=== PATIENT | female | born 1965 | race Two or more races ===

== ENCOUNTER → 2021-08-31 14:06 | Outpatient (BNVA) | payer OTHER, SELFPAY | PROVIDERS: PCP Nurse Practitioner Family; Visit Provider Nurse Practitioner Family | DX: G47.30 Sleep apnea, unspecified (principal); G43.109 Migraine with aura, not intractable, without status migrainosus; M54.2 Cervicalgia | CPT/HCPCS: 99212 ==

== ENCOUNTER → 2021-10-06 10:35 | Outpatient (BNVA) | payer OTHER, SELFPAY | PROVIDERS: PCP Nurse Practitioner Family; Visit Provider Physician Assistant Surgical | DX: Z13.89 Encounter for screening for other disorder (principal) ==

== ENCOUNTER → 2021-10-26 10:46 | Outpatient (BNVA) | payer OTHER, SELFPAY | PROVIDERS: PCP Nurse Practitioner Family; Visit Provider Physician Assistant Surgical | DX: E66.01 Morbid (severe) obesity due to excess calories (principal); Z68.41 Body mass index [BMI] 40.0-44.9, adult | CPT/HCPCS: 99202 ==

== ENCOUNTER → 2021-11-30 13:05 | Outpatient (BNVA) | payer OTHER, SELFPAY | PROVIDERS: PCP Nurse Practitioner Family; Visit Provider Nurse Practitioner Family | DX: G47.33 Obstructive sleep apnea (adult) (pediatric) (principal); E66.01 Morbid (severe) obesity due to excess calories; Z68.41 Body mass index [BMI] 40.0-44.9, adult; M54.2 Cervicalgia; G43.109 Migraine with aura, not intractable, without status migrainosus; Z79.899 Other long term (current) drug therapy; Z99.89 Dependence on other enabling machines and devices | CPT/HCPCS: 99212 ==

== ENCOUNTER → 2022-04-20 10:51 | Outpatient (BNVA) | payer OTHER, SELFPAY | PROVIDERS: PCP Nurse Practitioner Family; Visit Provider Nurse Practitioner Family | DX: G43.109 Migraine with aura, not intractable, without status migrainosus (principal); G47.33 Obstructive sleep apnea (adult) (pediatric); E66.01 Morbid (severe) obesity due to excess calories; M54.2 Cervicalgia; Z99.89 Dependence on other enabling machines and devices | CPT/HCPCS: 99212 ==

== ENCOUNTER → 2022-06-18 12:57 | Outpatient (BNVA) | payer OTHER, SELFPAY | PROVIDERS: PCP Nurse Practitioner Family; Referring Provider Physician Assistant Surgical; Visit Provider Internal Medicine | DX: R00.2 Palpitations (principal); R07.2 Precordial pain; I25.10 Atherosclerotic heart disease of native coronary artery without angina pectoris | CPT/HCPCS: 93005; 99202 ==

== ENCOUNTER → 2022-07-06 09:53 | Outpatient (REF) | payer OTHER, SELFPAY ==
--- NOTE | 2022-07-06 09:56 | CA_ITS ---
Transthoracic Echocardiogram Patient (Last, First, Middle): Quita Newman, Gender: Female Date of : 1965 Age: 56 Procedure Date: 07/06/2022 Procedure Type: Transthoracic Echocardiogram Location: OP Height: 167.64 cm Weight: 122.47 kg BSA: 2.27 m2 Heart Rate: 77 bpm BP: 117 / 54 mmHg Car Coupler: KATYA Referring MD: Channing Rahman MD Billing Spec: Billy Martinez MD Symptoms: I25.10 - Atherosclerotic heart disease of [place] coronary artery without... Study Quality: Adequate ECG Rhythm: Sinus Conclusions: - 1. Normal LV systolic function with normal diastolic filling pattern with regional wall motion abnormality suggestive underlying coronary disease 2. Normal cardiac valvular Doppler 3. No gross pericardial effusion Findings Left Ventricle Normal left ventricular size, thickness, and systolic function. The visually estimated ejection fraction is between 60-65%. Spectral Doppler is indicative of a normal filling pattern. Peak GLS is -15.6%, which is reduced. Wall Motion Rest Echo Findings The basal inferior segment is akinetic. All other scored wall segments showed normal motion. Right Ventricle Normal right ventricular cavity size and systolic function. Atria Both atria are normal in size. Aortic Valve The aortic valve was not well visualized. There is no aortic valve stenosis. There is no aortic valve regurgitation. Mitral Valve Likely normal mitral valve structure and function. There is trace mitral valve regurgitation. There is no mitral valve stenosis. Pulmonic Valve The pulmonic valve was not well visualized. Tricuspid Valve Likely normal tricuspid valve structure and function. Tricuspid regurgitation envelope is inadequate for calculation of right ventricular systolic pressure. Normal right atrial pressure. Great Vessels All visible segments of the aorta are normal in size. The pulmonary artery was not well visualized. Venous The inferior vena cava is normal in size and collapses greater than 50% with inspiration. Pericardium/Pleural There is no evidence of pericardial effusion. Prior Study Comparison No prior study available for comparison. Measurements 2D Linear Measurements IVSd: 1.30 0.6-0.9/0.6-1.0 cm LVIDd: 4.67 3.9-5.3/4.2-5.9 cm LVIDd Index: 2.06 2.4-3.2/2.2-3.1 cm/m2 LVIDs: 2.99 2.0-3.6 cm LVPWd: 0.90 0.7-1.1 cm LA Diam: 3.70 2.7-3.8/3.0-4.0 cm LAIDs Index: 1.63 1.5-2.3 cm/m2 LV Mass: 230.56 67-162/88-224 g LV Mass Index: 101.57 43-95/49-115 g/m2 LVOT Diam: 2.10 3.0+(-)1.3 cm 2D Systolic Function EF 4C: 57.80 >55% EF 2C: 63.70 >55% EF BiP: 61.00 >55% Mitral Valve MV Pk E: 0.86 MV PK A: 0.84 MV Decel Time: 170.00 E/A: 1.00 E'Lateral: 12.50 E'Medial: 10.90 E/E' Med: 7.90 E/E' Lat: 6.90 PHT: 50.00 MVA PHT: 4.40 Decel [place]: 5.07 Aortic Valve AoV Pk [place]: 1.27 AoV Pk Grad: 6.00 VALENCIA: 2.65 LVOT LVOT Pk [place]: 0.97 LVOT Mn [place]: 0.71 LVOT VTI: 0.23 LVOT Pk Grad: 4.00 LVOT Mn Grad: 2.00 LVOT Diam: 2.10 LVOT Area: 3.46 Diastolic Function MV Pk E: 0.86 MV Pk A: 0.84 E/A: 1.00 E'Medial: 10.90 E/E' Med: 7.90 E' Laterial: 12.50 E/E' Lat: 6.90 Right Ventricle TAPSE (mm): 19.50 TVS' [place]: 13.10 Tricuspid Valve RA Press: 3.00 Great Vessels Aorta Sinus of Valsalva: 2.90 2.0-3.5 cm Ao Asc: 2.90 2.1-3.4 cm Pulmonary Veins Pulm Vein S/D 1.40 Pulmonary Valve PV Pk [place]: 1.00 Peak PV Grad: 4.00 Updated in Other Vendor System with Status of Final Billy Martinez MD electronically signed on 07/07/2022 3:00:58 PM with status of Final
--- NOTE | 2022-07-06 09:56 | HM_ITS ---
Conclusion: 1. Patient was monitored for total period of 3 days 2. Baseline was normal sinus rhythm with average heart of 88 beats per minute 3. No significant pauses or bradycardia noted 4. Rare PACs noted 5. No patient reported events MTDD
== END ==
LOC: HO.CARD 09:53
PROVIDERS: PCP Nurse Practitioner Family; Visit Provider Internal Medicine
DX: R07.2 Precordial pain (principal); I25.10 Atherosclerotic heart disease of native coronary artery without angina pectoris; R00.2 Palpitations
CPT/HCPCS: 93242; 93306; 93356

== ENCOUNTER → 2022-07-24 08:39 | Outpatient (REF) | payer OTHER, SELFPAY ==
--- NOTE | 2022-07-24 08:49 | CA_ITS ---
Acquisition Time: 2022-07-24 09:04:12 Total Exercise Time: 00:05:00 Test Indications: CP Medications: SEE CHART Protocol: KARY Max HR: 157 BPM 96% of Pred: 163 BPM Max BP: 144/064 mmHG Max Work Load: 7.0 METS Exercise stress test with exercise 5 min of Kary protocol, achieving 96% MPHR, with moderate sob, no chest discomfort, with PACs and atrial cuplets and triplets in recovery, with normotensive response to exercise, without EKG changes meeting criteria for ischemia. Nuclear images pending. Test reviewed with Dr Martinez Note: Nuclear agent remained in IV tubing, ( did not inject into pt). No tracer seen in pt on attempt of nuclear scan according to nuclear med tech. Reviewed with Dr Rahman. Will Cx the nuclear portion of the testing as the EKGs were not ischemic on above exercise portion of test. Referred By: Channing Rahman Overread By: AR ROMAN
== END ==
LOC: HO.CARD 08:39
PROVIDERS: PCP Nurse Practitioner Family; Visit Provider Internal Medicine
DX: R07.2 Precordial pain (principal)
CPT/HCPCS: 93017

== ENCOUNTER → 2022-11-05 07:47 | Outpatient (BNVA) | payer OTHER, SELFPAY | PROVIDERS: Visit Provider Internal Medicine | DX: R07.2 Precordial pain (principal); R00.2 Palpitations | CPT/HCPCS: 99212 ==

== ENCOUNTER → 2022-11-09 08:57 | Outpatient (BNVA) | payer OTHER, SELFPAY | PROVIDERS: Visit Provider Nurse Practitioner Family | DX: G43.109 Migraine with aura, not intractable, without status migrainosus (principal); G47.33 Obstructive sleep apnea (adult) (pediatric); M54.2 Cervicalgia; E66.01 Morbid (severe) obesity due to excess calories; Z99.89 Dependence on other enabling machines and devices; Z68.41 Body mass index [BMI] 40.0-44.9, adult | CPT/HCPCS: 99212 ==

== ENCOUNTER → 2023-01-10 11:25 | Outpatient (BNVA) | payer OTHER, SELFPAY | PROVIDERS: Visit Provider Nurse Practitioner Family | DX: R07.2 Precordial pain (principal); R06.02 Shortness of breath; I10 Essential (primary) hypertension; E66.01 Morbid (severe) obesity due to excess calories; Z68.41 Body mass index [BMI] 40.0-44.9, adult | CPT/HCPCS: 99212 ==

== ENCOUNTER 2023-03-18 10:33 | Outpatient (AMB) | payer OTHER, SELFPAY ==
--- NOTE | 2023-03-18 10:42 | A.OFFVIS_ITS ---
Intake VS Expanded 03/18/23 10:46 Height 5 ft 7 in Weight 257 lb 3.2 oz BMI 40.3 BP 134/61 Blood Pressure Location Rt brachial Blood Pressure Position Sitting Pulse 82 Pulse Source Pulse Oximeter Temp 97.6 F Temperature Source Temporal Artery Scan Pulse Oximetry 97 Oxygen Delivery Method Room Air Body Fat 126.4 Body Fat Percentage 49.1 Free Fat Mass 130.8 Muscle Mass 124.2 Visceral Mass 15.0 Water Mass 92.8 BMR 1,858 Intake Visit Reasons: (OV) RE-ESTABLISH SWL [facility] Senior Specialist Required: Yes [facility] Senior Specialist Name: office cmi Allergies omeprazole [From Prilosec] Allergy (Mild, Verified 03/18/23 10:45) Rash Medication List - Last Reconciled 03/18/23 by BRAULIO Wong acetaminophen ER (Mapap Arthritis Pain) 0 mg PO alcohol swabs (Alcohol Prep Pads) 0 pad topical amitriptyline 30 mg (3 x 10 mg) PO BEDTIME 90 days blood sugar diagnostic (FreeStyle Lite Strips) As directed blood-glucose meter (FreeStyle Lite Meter kit) As directed capsaicin 0.025% appl topical cholecalciferol (vitamin D3) (Vitamin D3) 25 mcg PO DAILY diclofenac sodium 1% grams topical dulaglutide (Trulicity) 0.75 mg subcut duloxetine 40 mg PO DAILY duloxetine 60 mg PO DAILY gabapentin 600 mg PO BID hydrochlorothiazide 25 mg PO DAILY lancets (FreeStyle Lancets) As directed magnesium oxide 400 mg PO DAILY 90 days naproxen 500 mg PO BID ramipril 10 mg PO DAILY riboflavin (vitamin B2) (Vitamin B-2) 200 mg (2 x 100 mg) PO BID 90 days rizatriptan 10 mg PO Q2H PRN 30 days simvastatin 10 mg PO BEDTIME HPI HPI Comments History of Present Illness Details Pt is here to re-start the [facility] [place]. She had an initial appt in October 2021 but did not have further follow up appts. She heard about the program from friends who went through it. Her goal is to lose weight and achieve a healthy lifestyle as well as to improve, if not resolve, obesity related medical conditions, including KIAH requiring CPAP, DM, HTN, HLD. She reports first being concerned about her weight 4-5 years ago, highest weight to date was 263. Current weight is 257.2 with a BMI of 40.3. She has tried multiple methods of weight loss including fad diets without permanent results. She lives with her . She does not currently work. She had a w/u by [facility] and stress test, echo, and coronary CT were without evidence of reversible ischemia or evidence of wall motion abnormalities. Holter without arrhythmia. She wakes at:?10 AM, and goes to bed at?10 PM. Dinner is at 6 pm. Breakfast: ham and cheese sandwich or 3 eggs AM snack: fruit Lunch: skip or fruit or salad PM snack: fruit Dinner: fish or chicken and sometimes rice. After dinner: corn flakes with 1 % milk sometimes. Other snacks: granola bars, fruit/nut mix Liquids: 96 oz water daily and no soda or juice Alcohol/marijuana/tobacco intake: none Exercise: nothing formal, has access to a senior center. [facility] Medical History Hyperlipidemia HTN (hypertension) Surgical History Hx of carpal tunnel repair Hx of appendectomy Family History Father Diabetes Mother Diabetes Alzheimer disease Son Hypertension Son No problems noted. Daughter No problems noted. Daughter Allergy Brother No problems noted. Brother No problems noted. Brother No problems noted. Brother No problems noted. Sister No problems noted. Sister No problems noted. Sister No problems noted. Sister No problems noted. Sister No problems noted. Sister No problems noted. Social History Household Members: Spouse Housing: Apartment Alcohol intake: former Patient Tobacco Use Status: Never used Tobacco Review of Systems Const All systems reviewed & are unremarkable except as noted in HPI and below Physical Exam Const General: cooperative, healthy appearing and no acute distress Orientation/consciousness: patient oriented x3 HEENT Head: Yes normal to inspection Ears: hearing grossly normal bilaterally General nose exam: Normal external nose present Face and sinus: Yes normal facial exam Eyes General: appearance normal, both eyes and all related structures Resp Effort & Inspection: normal respiratory effort Auscultation: clear to auscultation bilaterally Cardio Rate: regular rate Rhythm: regular rhythm Heart sounds: S1 normal heart sound present and S2 normal heart sound present GI Inspection: Yes normal to inspection, No distended and Yes obesity Palpation (GI): Soft to palpation, nontender and no guarding Auscultation: normal bowel sounds Skin General skin exam: no rashes or lesions noted Neuro General: patient oriented x3 Extrem General: No edema Psych Appearance: grossly normal Mental Status: mental status grossly normal Speech and movement: Normal speech and movement present Affect: normal affect Attitude: cooperative Assessment & Plan Assessment & Plan (1) Morbid obesity: Code(s): E66.01 - Morbid (severe) obesity due to excess calories Plan: This is a?57 yo female who will start our SWL program to prepare for bariatric surgery.? Blood work, h pylori , CXR, ECG, Abd US and UGI have been ordered. She is being scheduled for RD and BH initial consultations. She will start SWL classes and watch the first three videos before her next appointment. ? Adequate sleep of 7-8 hours per night discussed, awakening at 10 am and going to bed around 10 pm ? Purchase body composition analyzer scale (Ciarra nichols or Chris recommended) and check weight weekly. The best time to do this is first thing in the morning after going to the bathroom. 1. Nutritional counseling: Be sure to careful read the number of scoops per shake Start with 1 Premier Protein shake ([employer], [employer], [employer]), (2 scoops in 20 oz low fat unsweetened almond milk) at 11am-1pm 1 protein bar (Zone Perfect bars at [employer], [employer], or [employer]) at 1pm-3pm. Dinner at 4-6pm (9 forks of protein and 9 forks of salad/vegetables). Meal to include lean meat (beef, fish, pork, turkey, chicken), cooked vegetables or a salad with olive oil and/or fruits (berries, pears, apples, kiwi). Avoid salt, breads, potatoes, rice, pasta, desserts. Another protein bar at 7pm-9pm. Try to drink 64 oz of water daily and avoid soda and juices. ?2. Each shake would be drunk slowly, like coffee in a period of 2 hours. ?3. Cut each bar in 4 pieces and eat each piece in 30 min ?to make each bar last 2 hours. ?4. I emphasized the importance of measuring accurately the food portion and measure it carefully when serving the food on the plate ?5. The meal portions include 9 full-size forks of meat and 9 full-size forks of salad. You always eat the meat portion but you can replace up to half of the forks of salad/vegetables with rice, potatoes or pasta, or a fruit ?if you like. The less you do it the better weight loss will be. ?6. One full-size fork is what can be scooped on the fork without falling aside and not what can be bit with the fork. Use regular forks like those you find in a typical restaurant. ?7.? Please send me weight measurements as soon as possible and then once a week. Always include your diet and exercise plan. Alternatively come weekly at the office for weight checks and send me the measurements. ?8. Exercise counseling: Begin by watching a stretching for beginners video. Start slowly and begin to stretch your muscles. You should do this before and after each exercise session to prevent injury. Please join [facility] gym near your home. Ask the selling manager or one of the trainers how to use the machines if you are unfamiliar with them. Start elliptical with a resistance of 2. Increase resistance by 1 every 3 min to your most comfortable resistance with a max resistance of 8. Reduce the resistance by 1 every 3 minutes back down to 2 and repeat cycles for 300 calories. Alternatively, start treadmill with a speed of 2.5 and incline of 0, increasing incline by 1 every 3 minutes to the highest comfortable level (max 6 for now) then decrease in the same fashion. Repeat process to a goal of 300 calories. Goal of 2000 calories burned or more weekly. You may also consider use of the stationary bike. The easiest would be to chose the fat-burn or interval training program on the machine and do this until you reach the 300 calorie goal. Alternatively, you can manually adjust the resistance in a similar fashion as mentioned above, (resistance of 2-8 with a goal speed of 12 mph). Tracking calories is essential. 9. Alternatively start walking outside daily, tracking calories with a goal of 300 calories per day, daily. You can download the jeancarlos [employer] which can track your time, distance and calories while walking outside. You press start in the jeancarlos when you start and then stop when you are finished. 10.? It is important to text me weekly with your weight and if you are having any problems with the plans. 11. Please get labs, EKG and chest X-Ray within 1 week. 12. Discussed and answered all questions regarding?obtained consent to participate in the [facility]?Registry. 13. Please follow the diet plan exactly, without any change. If you do not like something about the plan or you feel hungry, you need to communicate with me so I can help you revise the plan. You should not change the plan yourself. Text me at [phone] 14. Goal is to lose at least 12 pounds in the first month 15. Goal is to lose 10% of your weight before surgery, which is about 25 lbs. Ultimate weight goal: 232 lbs before surgery Meal plan from Right BMI: Saturday Meal Number Time Description Total Protein 1 11:00 - 13:00 Powdered - Premier - Chocolate: 2.00 scoop (Mix with 20.29 oz of [place] milk) 35.0 2 13:00 - 15:00 Bar - Zone Perfect - Fudge Zaid: 1.00 piece 14.0 3 16:00 - 18:00 4.85 oz (9 forkfuls) beef/chicken/tamez/pork/fish/tofu and 4.85 oz (9 forkfuls) of s alad. 32.1 4 19:00 - 21:00 Bar - Zone Perfect - Fudge Zaid: 1.00 piece 14.0 95.1 Saturday Meal Number Time Description Total Protein 1 11:00 - 13:00 Powdered - Premier - Chocolate: 2.00 scoop (Mix with 20.29 oz of [place] milk) 35.0 2 13:00 - 15:00 Bar - Zone Perfect - Fudge Zaid: 1.00 piece 14.0 3 16:00 - 18:00 4.85 oz (9 forkfuls) beef/chicken/tamez/pork/fish/tofu and 4.85 oz (9 forkfuls) of salad. 32.1 4 19:00 - 21:00 Bar - Zone Perfect - Fudge Zaid: 1.00 piece 14.0 95.1 Saturday Meal Number Time Description Total Protein 1 11:00 - 13:00 Powdered - Premier - Chocolate: 2.00 scoop (Mix with 20.29 oz of [place] milk) 35.0 2 13:00 - 15:00 Bar - Zone Perfect - Fudge Zaid: 1.00 piece 14.0 3 16:00 - 18:00 4.85 oz (9 forkfuls) beef/chicken/tamez/pork/fish/tofu and 4.85 oz (9 forkfuls) of salad. 32.1 4 19:00 - 21:00 Bar - Zone Perfect - Fudge Zaid: 1.00 piece 14.0 95.1 Meal Number Time Description Total Protein 1 11:00 - 13:00 Powdered - Premier - Chocolate: 2.00 scoop (Mix with 20.29 oz of [place] milk) 35.0 2 13:00 - 15:00 Bar - Zone Perfect - Fudge Zaid: 1.00 piece 14.0 3 16:00 - 18:00 4.85 oz (9 forkfuls) beef/chicken/tamez/pork/fish/tofu and 4.85 oz (9 forkfuls) of salad. 32.1 4 19:00 - 21:00 Bar - Zone Perfect - Fudge Zaid: 1.00 piece 14.0 95.1 Saturday Meal Number Time Description Total Protein 1 11:00 - 13:00 Powdered - Premier - Chocolate: 2.00 scoop (Mix with 20.29 oz of [place] milk) 35.0 2 13:00 - 15:00 Bar - Zone Perfect - Fudge Zaid: 1.00 piece 14.0 3 16:00 - 18:00 4.85 oz (9 forkfuls) beef/chicken/tamez/pork/fish/tofu and 4.85 oz (9 forkfuls) of salad. 32.1 4 19:00 - 21:00 Bar - Zone Perfect - Fudge Zaid: 1.00 piece 14.0 95.1 Saturday Meal Number Time Description Total Protein 1 11:00 - 13:00 Powdered - Premier - Chocolate: 2.00 scoop (Mix with 20.29 oz of [place] milk) 35.0 2 13:00 - 15:00 Bar - Zone Perfect - Fudge Zaid: 1.00 piece 14.0 3 16:00 - 18:00 4.85 oz (9 forkfuls) beef/chicken/tamez/pork/fish/tofu and 4.85 oz (9 forkfuls) of salad. 32.1 4 19:00 - 21:00 Bar - Zone Perfect - Fudge Zaid: 1.00 piece 14.0 95.1 Saturday Meal Number Time Description Total Protein 1 11:00 - 13:00 Powdered - Premier - Chocolate: 2.00 scoop (Mix with 20.29 oz of [place] milk) 35.0 2 13:00 - 15:00 Bar - Zone Perfect - Fudge Zaid: 1.00 piece 14.0 3 16:00 - 18:00 4.85 oz (9 forkfuls) beef/chicken/tamez/pork/fish/tofu and 4.85 oz (9 forkfuls) of salad. 32.1 4 19:00 - 21:00 Bar - Zone Perfect - Fudge Zaid: 1.00 piece 14.0 95.1 Patient is morbidly obese and is not considered stable at this time.?I spent a total of 70 minutes reviewing/updating records, examining the patient and counseling the patient on weight management as detailed above. Orders: Orders Zinc Today E66.01 - Morbid (severe) obesity due to excess calories, E78.5 - Hyperlipidemia, unspecified, I10 - Essential (primary) hypertension Comprehensive Met. Panel Today E66.01 - Morbid (severe) obesity due to excess calories, E78.5 - Hyperlipidemia, unspecified, I10 - Essential (primary) hypertension Vitamin A Today E66.01 - Morbid (severe) obesity due to excess calories, E78.5 - Hyperlipidemia, unspecified, I10 - Essential (primary) hypertension Ferritin Today E66.01 - Morbid (severe) obesity due to excess calories, E78.5 - Hyperlipidemia, unspecified, I10 - Essential (primary) hypertension Hemoglobin A1c Today E66.01 - Morbid (severe) obesity due to excess calories, E78.5 - Hyperlipidemia, unspecified, I10 - Essential (primary) hypertension US abdomen comp w elastography Today E66.01 - Morbid (severe) obesity due to excess calories, E78.5 - Hyperlipidemia, unspecified, I10 - Essential (primary) hypertension ECG 12 lead EKG Today E66.01 - Morbid (severe) obesity due to excess calories, E78.5 - Hyperlipidemia, unspecified, I10 - Essential (primary) hypertension FL upper GI w air Today E66.01 - Morbid (severe) obesity due to excess calories, E78.5 - Hyperlipidemia, unspecified, I10 - Essential (primary) hypertension Insulin Today E66.01 - Morbid (severe) obesity due to excess calories, E78.5 - Hyperlipidemia, unspecified, I10 - Essential (primary) hypertension Lipid Panel Today E66.01 - Morbid (severe) obesity due to excess calories, E78.5 - Hyperlipidemia, unspecified, I10 - Essential (primary) hypertension IRON PROFILE Today E66.01 - Morbid (severe) obesity due to excess calories, E78.5 - Hyperlipidemia, unspecified, I10 - Essential (primary) hypertension Complete Blood Count Auto Diff Today E66.01 - Morbid (severe) obesity due to excess calories, E78.5 - Hyperlipidemia, unspecified, I10 - Essential (primary) hypertension Vitamin B12 and Folate Today E66.01 - Morbid (severe) obesity due to excess calories, E78.5 - Hyperlipidemia, unspecified, I10 - Essential (primary) hypertension Vitamin B1 Today E66.01 - Morbid (severe) obesity due to excess calories, E78.5 - Hyperlipidemia, unspecified, I10 - Essential (primary) hypertension C Reactive Protein Today E66.01 - Morbid (severe) obesity due to excess calories, E78.5 - Hyperlipidemia, unspecified, I10 - Essential (primary) hypertension PTHI Today E66.01 - Morbid (severe) obesity due to excess calories, E78.5 - Hyperlipidemia, unspecified, I10 - Essential (primary) hypertension TSH reflex Free T4 Today E66.01 - Morbid (severe) obesity due to excess calories, E78.5 - Hyperlipidemia, unspecified, I10 - Essential (primary) hypertension H Pylori Breath Test Today E66.01 - Morbid (severe) obesity due to excess calories, E78.5 - Hyperlipidemia, unspecified, I10 - Essential (primary) hypertension Vitamin D 25-OH Total Today E66.01 - Morbid (severe) obesity due to excess calories, E78.5 - Hyperlipidemia, unspecified, I10 - Essential (primary) hypertension XR chest 2V Today E66.01 - Morbid (severe) obesity due to excess calories, E78.5 - Hyperlipidemia, unspecified, I10 - Essential (primary) hypertension Referrals Behavioral Health Referral E66.01 - Morbid (severe) obesity due to excess calories, E78.5 - Hyperlipidemia, unspecified, I10 - Essential (primary) hypertension Nutrition/Dietitian Referral E66.01 - Morbid (severe) obesity due to excess calories, E78.5 - Hyperlipidemia, unspecified, I10 - Essential (primary) hypertension Coding Level of Care Code Est Pt Level 5 (20868) Diagnoses Morbid obesity E66.01 Time Spent (min) 70
[2023-03-18 10:46] VITALS: BP 134/61; PULSE 82; TEMP 36.4; O2SAT 97; BMI 40.3
== END 2023-03-18 15:31 | disposition home or self-care (01) ==
PROVIDERS: Visit Provider Physician Assistant Surgical
DX: E66.01 Morbid (severe) obesity due to excess calories (principal); Z68.41 Body mass index [BMI] 40.0-44.9, adult
CPT/HCPCS: 99215

== ENCOUNTER → 2023-03-18 10:33 | Outpatient (BNVA) | payer OTHER, SELFPAY | PROVIDERS: Visit Provider Physician Assistant Surgical | DX: E66.01 Morbid (severe) obesity due to excess calories (principal); Z68.41 Body mass index [BMI] 40.0-44.9, adult | CPT/HCPCS: 99212 ==

== ENCOUNTER 2023-04-12 10:49 | Outpatient (AMB) | payer OTHER, SELFPAY ==
--- NOTE | 2023-04-12 10:51 | MHC.OFFVISWM ---
Intake VS Expanded 04/12/23 10:56 BP 125/70 Blood Pressure Location Rt brachial Blood Pressure Position Sitting Pulse 96 Pulse Source Pulse Oximeter Temp 98.7 F Temperature Source Temporal Artery Scan Pulse Oximetry 96 Oxygen Delivery Method Room Air Height 5 ft 7 in Weight 248 lb 6.4 oz BMI 38.9 Body Fat % 48.9 Body Fat Mass 121.4 Fat Free Mass 126.8 Visceral Fat Rating 15.0 Body Water % 36.2 Body Water Mass 90.0 Muscle Mass/Score 120.4 Basal Metabolic Rate/Score 1,799 Intake Visit Reasons: (OV) F/U SWL + H.Pylori Bindery Cutter Operator Required: Yes Bindery Cutter Operator Name: occife cmi Allergies omeprazole [From Prilosec] Allergy (Mild, Verified 04/12/23 10:56) Rash Medication List - Last Reconciled 04/12/23 by BRAULIO Wong acetaminophen ER (Mapap Arthritis Pain) 0 mg PO alcohol swabs (Alcohol Prep Pads) 0 pad topical amitriptyline 30 mg (3 x 10 mg) PO BEDTIME 90 days blood sugar diagnostic (FreeStyle Lite Strips) As directed blood-glucose meter (FreeStyle Lite Meter kit) As directed capsaicin 0.025% appl topical cholecalciferol (vitamin D3) (Vitamin D3) 25 mcg PO DAILY diclofenac sodium 1% grams topical dulaglutide (Trulicity) 0.75 mg subcut duloxetine 40 mg PO DAILY duloxetine 60 mg PO DAILY gabapentin 600 mg PO BID hydrochlorothiazide 25 mg PO DAILY lancets (FreeStyle Lancets) As directed magnesium oxide 400 mg PO DAILY 90 days naproxen 500 mg PO BID ramipril 10 mg PO DAILY riboflavin (vitamin B2) (Vitamin B-2) 200 mg (2 x 100 mg) PO BID 90 days rizatriptan 10 mg PO Q2H PRN 30 days simvastatin 10 mg PO BEDTIME HPI HPI Comments History of Present Illness Details The patient is a pleasant 57 year old female who returns to the clinic for pre-operative surgical weight loss management. They were last seen in the office on 03/18/23, recorded weight at that time was 257.2 pounds, with a BMI of 40.3. Today's weight is 248.4 pounds and BMI is 38.9. There has been a weight loss of 8.8 pounds since initiating the surgical weight loss program on 03/18/23 with a total body weight loss of 3.4 %. Pre op work up completed as follows: SWL classes:? []8 BH appts: 05/02/23 ? ? RD appts: 04/24/23 Labs: not yet done H. pylori: 04/12/23 CXR: not yet done EKG: not yet done ABD U/S: 05/29/23 UGI: 05/29/23 The patient reports she is doing ok but hurt her left foot the other day. She is going to [place] from May to July Current meal plan includes: 1 Premier Protein shake ([employer], [employer], [employer]), (2 scoops in 20 oz low fat unsweetened almond milk) at 11am-1pm 1 protein bar (Zone Perfect bars at [employer], [facility], or [employer]) at 1pm-3pm. Dinner at 4-6pm (9 forks of protein and 9 forks of salad/vegetables). Another protein bar at 7pm-9pm. Drinking 64 oz of water Current exercise plan includes: treadmill 1 hour, daily, 300-460 calories [facility] Medical History Hyperlipidemia HTN (hypertension) Surgical History Hx of carpal tunnel repair Hx of appendectomy Family History Father Diabetes Mother Diabetes Alzheimer disease Son Hypertension Son No problems noted. Daughter No problems noted. Daughter Allergy Brother No problems noted. Brother No problems noted. Brother No problems noted. Brother No problems noted. Sister No problems noted. Sister No problems noted. Sister No problems noted. Sister No problems noted. Sister No problems noted. Sister No problems noted. Social History Household Members: Spouse Housing: Apartment Alcohol intake: former Patient Tobacco Use Status: Never used Tobacco Physical Exam Vital Signs: Last Vital Signs Temp 98.7 F 04/12/23 10:56 Pulse 96 04/12/23 10:56 BP 125/70 04/12/23 10:56 Pulse Ox 96 04/12/23 10:56 Oxygen Delivery Method Room Air 04/12/23 10:56 BMI result Body Mass Index 38.9 Const General: healthy appearing and no acute distress Resp Effort & Inspection: normal respiratory effort Auscultation: clear to auscultation bilaterally Cardio Rate: regular rate Rhythm: regular rhythm GI Auscultation: normal bowel sounds Extrem General: Yes normal to inspection Assessment & Plan Assessment & Plan (1) Obesity (BMI 30-39.9): Code(s): E66.9 - Obesity, unspecified Plan: Change meal plan 1 Premier Protein shake ([employer], [employer], [employer]), (1 1/2 scoops in 20 oz low fat unsweetened almond milk) at 11am-1pm 1 protein bar (Zone Perfect bars at [employer], [facility], or [employer]) at 1pm-3pm. Dinner at 4-6pm (8 forks of protein and 8 forks of salad/vegetables). Another protein bar at 7pm-9pm. She is going to [place] to help with her family May to July, will do telehealth visits Coding Level of Care Code Est Pt Level 3 (03449) Diagnoses Obesity (BMI 30-39.9) E66.9
[2023-04-12 10:56] VITALS: BP 125/70; PULSE 96; TEMP 37.1; O2SAT 96; BMI 38.9
== END 2023-04-12 11:35 | disposition home or self-care (01) ==
PROVIDERS: Visit Provider Physician Assistant Surgical
DX: E66.9 Obesity, unspecified (principal)
CPT/HCPCS: 99213

== ENCOUNTER 2023-04-12 10:49 | Outpatient (REF) | payer OTHER, SELFPAY | END 2023-04-12 10:50 | disposition home or self-care (01) | LOC: HO.LNP 10:49 | PROVIDERS: Visit Provider Physician Assistant Surgical | DX: E66.9 Obesity, unspecified (principal) | CPT/HCPCS: 83013; 99211; 99212 ==

== ENCOUNTER 2023-04-17 09:44 | Outpatient (REF) | payer OTHER, SELFPAY ==
--- NOTE | ~2023-04-17 | XR_ITS ---
EXAMINATION: XR CHEST CLINICAL INFORMATION: Obesity COMPARISON: None available. TECHNIQUE: 2 views of the chest were obtained. FINDINGS: No significant abnormality is noted involving the heart, lungs, mediastinum, bony thorax or soft tissues. XR/XR chest 2V IMPRESSION: Unremarkable examination.
[2023-04-17 10:26] LABS: MANUAL DIFF FLAG NO
[2023-04-17 10:47] LABS: Basophils Absolute Auto 0.1 X10*3/uL (0.0-0.2); Basophils Percent Auto 0.5 % (0-2); Eosinophils Absolute Auto 0.2 X10*3/uL (0.0-0.4); Eosinophils Percent Auto 2.1 % (0-4); Hemoglobin 14.5 g/dl (12.0-16.0); Imm Gran Abs Auto 0.03 X10*3/uL (0.00-0.03); Imm Gran Pct Auto 0.3 % (0.0-0.4); Lymphocytes Absolute Auto 2.6 X10*3/uL (1.2-4.9); Lymphocytes Percent Auto 24.6 % (20-40); Mean Corpuscular Hemoglobin 27.8 pg (27.0-33.0); Mean Corpuscular Volume 84.3 fL (80.0-98.0); Mean Platelet Volume 9.6 fL (9.4-12.3); Monocytes Absolute Auto 0.8 X10*3/uL (0.1-1.2); Monocytes Percent Auto 7.3 % (2-11); Neutrophils Absolute Auto 6.8 x10*3/uL (2.0-8.3); Neutrophils Percent Auto 65.2 % (45-73); Platelet Count 305 X10*3/uL (160-400); Red Blood Count 5.22 X10*6/uL (4.20-5.50); Red Cell Distribution Width 13.4 % (11.0-16.0); White Blood Count 10.5 X10*3/uL (4.8-10.8)
[2023-04-17 11:29] LABS: Alanine Aminotransferase 15 U/L (0-31); Albumin Level 4.1 g/dL (3.5-5.0); Alkaline Phosphatase 86 U/L (39-117); Anion Gap 15 (12-20); Aspartate Amino Transferase 24 U/L (5-31); Bilirubin Total 0.4 mg/dL (0.0-1.0); Blood Urea Nitrogen 13 mg/dL (9-16); C Reactive Protein 1.25 mg/dL (< or = 0.50); Calcium 10.1 mg/dL (8.4-10.2); Carbon Dioxide 27 mmol/L (22-29); Chloride 101 mmol/L (96-108); Cholesterol 154 mg/dL (<200); Estimated Glomerular Filt Rate > 60; Glucose Random 89 mg/dL (60-115); HDL Cholesterol 40 mg/dL (>40); Iron 55 mcg/dL (30-160); LDL Cholesterol Calculated 93 mg/dL (<100); Percent Iron Saturation 21 % (15-50); Potassium 3.6 mmol/L (3.3-5.1); Sodium 139 mmol/L (135-145); Total Iron Binding Capacity 260 mcg/dL (228-428); Total Protein 8.2 g/dL (6.5-8.0); Triglycerides 106 mg/dL (<150); Unsaturated Iron Binding 205 ug/dL
[2023-04-17 11:38] LABS: Ferritin 118 ng/mL (10-250); Insulin 13 uU/mL (2-29); TSH reflex Free T4 0.92 uIU/mL (0.32-4.0); Vitamin D 25-OH Total 40.9 ng/mL (>30)
[2023-04-18 09:39] LABS: Calcium (PTHI) 9.5 mg/dL (8.6-10.4); PTHI 44 pg/mL (16-77)
[2023-04-20 18:08] LABS: Zinc 67 mcg/dL (60-130)
[2023-04-22 00:29] LABS: Vitamin B1 8 nmol/L (8-30)
[2023-04-23 10:29] LABS: Vitamin A 42 mcg/dL (38-98)
== END 2023-04-17 09:45 | disposition home or self-care (01) ==
LOC: HO.LAB 09:44
PROVIDERS: Visit Provider Physician Assistant Surgical
DX: E66.01 Morbid (severe) obesity due to excess calories (principal); I10 Essential (primary) hypertension; E78.5 Hyperlipidemia, unspecified
CPT/HCPCS: 36415; 71046; 80053; 80061; 82306; 82607; 82728; 82746; 83036; 83525; 83540; 83970; 84425; 84443; 84590; 84630; 85025; 86140; 93005

== ENCOUNTER → 2023-04-24 11:38 | Outpatient (BNVA) | payer OTHER, SELFPAY | PROVIDERS: Visit Provider Dietitian, Registered | DX: E66.9 Obesity, unspecified (principal) | CPT/HCPCS: 97802 ==

== ENCOUNTER 2023-05-08 11:00 | Outpatient (AMB) | payer OTHER, SELFPAY ==
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
== END 2023-05-08 12:00 | disposition home or self-care (01) ==
LOC: HO.HBST 11:24
PROVIDERS: Referring Provider Physician Assistant Surgical; Visit Provider Counselor Mental Health
DX: F41.9 Anxiety disorder, unspecified (principal); F32.9 Major depressive disorder, single episode, unspecified
CPT/HCPCS: 90791

== ENCOUNTER → 2023-05-08 11:00 | Outpatient (BNVA) | payer OTHER, SELFPAY | PROVIDERS: Referring Provider Physician Assistant Surgical; Visit Provider Counselor Mental Health ==

== ENCOUNTER 2023-05-10 08:38 | Outpatient (AMB) | payer OTHER, SELFPAY ==
--- NOTE | 2023-05-10 09:09 | MHC.OFFVISWM ---
Intake VS Expanded 05/10/23 09:19 BP 133/63 Blood Pressure Location Rt brachial Blood Pressure Position Sitting Pulse 72 Pulse Source Pulse Oximeter Temp 96.2 F L Temperature Source Temporal Artery Scan Pulse Oximetry 99 Oxygen Delivery Method Room Air Height 5 ft 7 in Weight 246 lb 9.6 oz BMI 38.6 Body Fat % 48.3 Body Fat Mass 119.0 Fat Free Mass 127.4 Visceral Fat Rating 15.0 Body Water % 36.7 Body Water Mass 90.4 Muscle Mass/Score 121.0 Basal Metabolic Rate/Score 1,803 Intake Visit Reasons: (OV) F/U SWL Board Design Engineer Required: Yes Board Design Engineer Name: office cmi Allergies omeprazole [From Prilosec] Allergy (Mild, Verified 05/10/23 09:13) Rash Medication List - Last Reconciled 05/10/23 by BRAULIO Wong acetaminophen ER (Mapap Arthritis Pain) 0 mg PO alcohol swabs (Alcohol Prep Pads) 0 pad topical amitriptyline 30 mg (3 x 10 mg) PO BEDTIME 90 days blood sugar diagnostic (FreeStyle Lite Strips) As directed blood-glucose meter (FreeStyle Lite Meter kit) As directed capsaicin 0.025% appl topical cholecalciferol (vitamin D3) (Vitamin D3) 25 mcg PO DAILY diclofenac sodium 1% grams topical dulaglutide (Trulicity) 0.75 mg subcut duloxetine 40 mg PO DAILY gabapentin 600 mg PO BID hydrochlorothiazide 25 mg PO DAILY lancets (FreeStyle Lancets) As directed magnesium oxide 400 mg PO DAILY 90 days naproxen 500 mg PO BID ramipril 10 mg PO DAILY riboflavin (vitamin B2) (Vitamin B-2) 200 mg (2 x 100 mg) PO BID 90 days rizatriptan 10 mg PO Q2H PRN 30 days simvastatin 10 mg PO BEDTIME thiamine HCl (vitamin B1) 100 mg PO DAILY 90 days HPI HPI Comments History of Present Illness Details The patient is a pleasant 57 year old female who returns to the clinic for pre-operative surgical weight loss management. They were last seen in the office on 04/12/23, recorded weight at that time was 240.2 pounds, with a BMI of 41.2. Today's weight is 246.6 pounds and BMI is 38.6. There has been a weight loss of 10.6 pounds since initiating the surgical weight loss program on 03/18/23 with a total body weight loss of 4.1 %. Pre op work up completed as follows: SWL classes:? [] appts: f/u-07/18/23 ? ? RD appts: needs f/u Labs: 04/17/23-low B1 H. pylori: 04/12/23-neg CXR: not yet done EK04/17/23-normal ABD U/S: 05/29/23 UGI: 05/29/23 The patient reports she had left knee pain requiring injection with some improvement but continued pain. The patient does have a body composition scale. They also have been communicating weekly. She lost some weight and but did get an injection in her hip and pain persists. She is going to [place] 05/14/23-07/10/23. She wants to take a break from the program until she returns. Current meal plan includes: 1 Premier Protein shake ([employer], [employer], [facility]), (1 1/2 scoops in 20 oz low fat unsweetened almond milk) at 11am-1pm 1 protein bar (Zone Perfect bars at [employer], [facility], or [employer]) at 1pm-3pm. Dinner at 4-6pm (8 forks of protein and 8 forks of salad/vegetables). Another protein bar at 7pm-9pm. Drinking 64 oz of water Current exercise plan includes: treadmill 1 hour, daily, 300-460 calories [facility] Medical History Hyperlipidemia HTN (hypertension) Surgical History Hx of carpal tunnel repair Hx of appendectomy Family History Father Diabetes Mother Diabetes Alzheimer disease Son Hypertension Son No problems noted. Daughter No problems noted. Daughter Allergy Brother No problems noted. Brother No problems noted. Brother No problems noted. Brother No problems noted. Sister No problems noted. Sister No problems noted. Sister No problems noted. Sister No problems noted. Sister No problems noted. Sister No problems noted. Social History Household Members: Spouse Housing: Apartment Alcohol intake: former Patient Tobacco Use Status: Never used Tobacco Review of Systems Const All systems reviewed & are unremarkable except as noted in HPI and below Physical Exam Const General: healthy appearing and no acute distress Resp Effort & Inspection: normal respiratory effort Auscultation: clear to auscultation bilaterally Cardio Rate: regular rate Rhythm: regular rhythm GI Auscultation: normal bowel sounds Extrem General: Yes normal to inspection Assessment & Plan Assessment & Plan (1) Obesity (BMI 30-39.9): Code(s): E66.9 - Obesity, unspecified Plan: Going to [place] from 05/14/2023 through 07/10/2023. She will call the office when she returns. She will continue her meal plan and was encouraged to continue exercise. She certainly may text me while she is away. Hopefully she will call the office upon her return for follow-up visits. Coding Level of Care Code Est Pt Level 3 (44948) Diagnoses Obesity (BMI 30-39.9) E66.9
[2023-05-10 09:19] VITALS: BP 133/63; PULSE 72; TEMP 35.7; O2SAT 99; BMI 38.6
== END 2023-05-10 09:39 | disposition home or self-care (01) ==
PROVIDERS: Visit Provider Physician Assistant Surgical
DX: E66.9 Obesity, unspecified (principal)
CPT/HCPCS: 99213

== ENCOUNTER → 2023-05-10 08:38 | Outpatient (BNVA) | payer OTHER, SELFPAY | PROVIDERS: Visit Provider Physician Assistant Surgical | DX: E66.9 Obesity, unspecified (principal); Z68.38 Body mass index [BMI] 38.0-38.9, adult | CPT/HCPCS: 99212 ==

== ENCOUNTER 2023-05-13 13:56 | Outpatient (AMB) | payer OTHER, SELFPAY ==
--- NOTE | 2023-05-13 13:40 | MHC.OFFVIS ---
Intake Vital Signs 05/13/23 14:13 Height 5 ft 7 in Weight 250 lb BMI 39.2 BP 124/82 Blood Pressure Location Rt brachial Position Sitting Pulse 76 Pulse Source Pulse Oximeter Pulse Oximetry (%) 98 Oxygen Delivery Method Room Air Intake Visit Reasons: 6m Follow Up KIAH/Migraines /Confirmed Intake Note: Patient presents for 6 month follow up migraines. Patient states I haven't been able to put the machine on due to pain. Allergies omeprazole [From Prilosec] Allergy (Mild, Verified 05/13/23 14:17) Rash HPI HPI Comments History of Present Illness Details 56 y/o female patient presents for follow up of KIAH on CPAP and migraine. Replication Medical vacuum drier tender ID #[id number] utilized. The CPAP compliance and therapy response report (02/12/23-05/12/23) reviewed with the patient. Pt is on APAP [id number]. Usage days 93%, average usage 6 hours 30 min. The residual AHI 6.7, and the max pressure 13.5. She sleeps well with CPAP. Pt states that she sleeps better, 11:30 pm to 7am and daytime tiredness has improved. Pt's migraine frequency and intensity has improved, but has 4-5 migraine days per month. Bright sunlight and neck pain triggered migraine. She uses rizatriptan at onset of migraine and it helped. Pt is on amitriptyline 30 mg, magnesium 400 mg qHS, vitamin B2 200 mg BID and gabapentin 600 mg BID. She is on wt management program and have bariatric surgery when her wt will reach to 232 lb. [facility] Medical History Hyperlipidemia HTN (hypertension) Surgical History Hx of carpal tunnel repair Hx of appendectomy Family History Father Diabetes Mother Diabetes Alzheimer disease Son Hypertension Son No problems noted. Daughter No problems noted. Daughter Allergy Brother No problems noted. Brother No problems noted. Brother No problems noted. Brother No problems noted. Sister No problems noted. Sister No problems noted. Sister No problems noted. Sister No problems noted. Sister No problems noted. Sister No problems noted. Social History Household Members: Spouse Housing: Apartment Alcohol intake: former Patient Tobacco Use Status: Never used Tobacco Physical Exam Vital Signs: Last Vital Signs Pulse 76 05/13/23 14:13 BP 124/82 05/13/23 14:13 Pulse Ox 98 05/13/23 14:13 Oxygen Delivery Method Room Air 05/13/23 14:13 BMI result Body Mass Index 39.2 Assessment & Plan Assessment & Plan (1) KIAH on CPAP: Code(s): G47.33 - Obstructive sleep apnea (adult) (pediatric); Z99.89 - Dependence on other enabling machines and devices (2) Morbid obesity: Code(s): E66.01 - Morbid (severe) obesity due to excess calories (3) Migraine with aura, not intractable, without status migrainosus: Code(s): G43.109 - Migraine with aura, not intractable, without status migrainosus (4) Cervicalgia of kgfjhnwb-tehwyih-fmxdx region: Code(s): M54.2 - Cervicalgia Plan Advised patient to continue to use APAP at 5-20 cmH2O nightly, more than 4 hours as pt has experienced good clinical effect from it. Clean mask and tubing regularly. Stressed patient regarding compliance. Continue to take magnesium 400 mg, amitriptyline 30 mg q HS and vitamin B 400 mg q daily and gabapentin 600 mg BID for migraine prevention. May use rizatriptan as needed for migraine attack. Encouraged patient to do exercise she learned from PT for neck muscle tightness. Monitor blood glucose regularly, increase physical activity and mange diet for wt reduction. Medications: Refilled riboflavin (vitamin B2) (Vitamin B-2) 200 mg (2 x 100 mg) PO BID 90 days 360 tabs 1RF rizatriptan 1 tab at onset of migraine, may repeat in 2 hours. Do not exceed 2 tabs/day. 4 tabs/week. 10 mg PO Q2H 30 days PRN 12 tabs 1RF migraine headache magnesium oxide 400 mg PO DAILY 90 days 90 tabs 1RF Coding Level of Care Code Est Pt Level 4 (40382) Diagnoses KIAH on CPAP G47.33; Z99.89 Morbid obesity E66.01 Migraine with aura, not intractable, without status migrainosus G43.109 Cervicalgia of prydcclv-ypvynee-dlggi region M54.2
[2023-05-13 14:13] VITALS: BP 124/82; PULSE 76; O2SAT 98; BMI 39.2
== END 2023-05-13 14:33 | disposition home or self-care (01) ==
PROVIDERS: Visit Provider Nurse Practitioner Family
DX: G47.33 Obstructive sleep apnea (adult) (pediatric) (principal); Z99.89 Dependence on other enabling machines and devices; E66.01 Morbid (severe) obesity due to excess calories; G43.109 Migraine with aura, not intractable, without status migrainosus; M54.2 Cervicalgia
CPT/HCPCS: 99214

== ENCOUNTER → 2023-05-13 13:56 | Outpatient (BNVA) | payer OTHER, SELFPAY | PROVIDERS: Visit Provider Nurse Practitioner Family | DX: G47.33 Obstructive sleep apnea (adult) (pediatric) (principal); E66.01 Morbid (severe) obesity due to excess calories; Z68.39 Body mass index [BMI] 39.0-39.9, adult; G43.109 Migraine with aura, not intractable, without status migrainosus; M54.2 Cervicalgia; Z79.899 Other long term (current) drug therapy; Z99.89 Dependence on other enabling machines and devices | CPT/HCPCS: 99212 ==

== ENCOUNTER 2023-07-12 07:45 | Outpatient (REF) | payer OTHER, SELFPAY | END 2023-07-12 07:46 | disposition home or self-care (01) | LOC: HO.US 07:45 | PROVIDERS: Visit Provider Physician Assistant Surgical | DX: E66.01 Morbid (severe) obesity due to excess calories (principal); I10 Essential (primary) hypertension; E78.5 Hyperlipidemia, unspecified | CPT/HCPCS: 74246; 76705; 76981 ==

== ENCOUNTER → 2023-07-12 08:05 | Outpatient (BNV) | payer OTHER, SELFPAY | PROVIDERS: Visit Provider Radiology Diagnostic Radiology | DX: Z01.818 Encounter for other preprocedural examination (principal); E66.01 Morbid (severe) obesity due to excess calories | CPT/HCPCS: 74246 ==

== ENCOUNTER 2023-07-17 13:15 | Outpatient (AMB) | payer OTHER, SELFPAY ==
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
== END 2023-08-07 11:09 | disposition home or self-care (01) ==
LOC: HO.HBST 13:40
PROVIDERS: Visit Provider Counselor Mental Health
DX: F41.9 Anxiety disorder, unspecified (principal); F32.9 Major depressive disorder, single episode, unspecified
CPT/HCPCS: 90834

== ENCOUNTER → 2023-07-17 13:15 | Outpatient (BNVA) | payer OTHER, SELFPAY | PROVIDERS: Visit Provider Counselor Mental Health ==

== ENCOUNTER 2023-07-26 10:29 | Outpatient (AMB) | payer OTHER, SELFPAY ==
[2023-07-26 09:39] VITALS: BMI 38.2
--- NOTE | 2023-07-26 09:39 | MHC.OFFVISWM ---
Intake VS Expanded 07/26/23 09:39 Height 5 ft 7 in Weight 243 lb 12.8 oz BMI 38.2 Body Fat % 53.2 Body Fat Mass 129.7 Fat Free Mass 114.2 Visceral Fat Rating 21 Body Water % 32.1 Body Water Mass 78.2 Muscle Mass/Score 107.2 Basal Metabolic Rate/Score 1,485 Intake Visit Reasons: tv SWL f/u Dough Brake Machine Operator Required: Yes Dough Brake Machine Operator Name: ELLEN grant CMI Allergies omeprazole [From Prilosec] Allergy (Mild, Verified 05/13/23 14:17) Rash Medication List - Last Reconciled 07/26/23 by BRAULIO Wong acetaminophen ER (Mapap Arthritis Pain) 0 mg PO alcohol swabs (Alcohol Prep Pads) 0 pad topical amitriptyline 30 mg (3 x 10 mg) PO BEDTIME 90 days blood sugar diagnostic (FreeStyle Lite Strips) As directed blood-glucose meter (FreeStyle Lite Meter kit) As directed capsaicin 0.025% appl topical cholecalciferol (vitamin D3) (Vitamin D3) 25 mcg PO DAILY diclofenac sodium 1% grams topical dulaglutide (Trulicity) 0.75 mg subcut duloxetine 40 mg PO DAILY gabapentin 600 mg PO BID hydrochlorothiazide 25 mg PO DAILY lancets (FreeStyle Lancets) As directed magnesium oxide 400 mg PO DAILY 90 days nabumetone 500 mg PO BID naproxen 500 mg PO BID ramipril 10 mg PO DAILY riboflavin (vitamin B2) (Vitamin B-2) 200 mg (2 x 100 mg) PO BID 90 days rizatriptan 10 mg PO Q2H PRN 30 days simvastatin 10 mg PO BEDTIME thiamine HCl (vitamin B1) 100 mg PO DAILY 90 days HPI HPI Comments History of Present Illness Details The patient is a pleasant 57 year old female who returns to the clinic for pre-operative surgical weight loss management. They were last seen in the office on 05/10/2023, recorded weight at that time was 246.6 pounds, with a BMI of 38.6. Today's weight is 243.8 pounds and BMI is 38.2. There has been a weight loss of 13.4 pounds since initiating the surgical weight loss program on 03/18/2023 with a total body weight loss of 5.4 %. Pre op work up completed as follows: SWL classes:? 10/13 appts: f/u-08/14/23 ? ? RD appts: needs f/u Labs: 04/17/23-low B1 H. pylori: 04/12/23-neg CXR: 04/17/23-nad EK04/17/23-normal ABD U/S: 07/12/23-fatty liver UGI: -normal The patient reports she has returned from [place] and she states she has been doing well. She had an exacerbation of sciatic pain and she is now going to get therapy and she had an injection for the pain. She is following the meal plan for the last 2 weeks since returning from [place] and she plans to resume gym on Saturday. Current meal plan includes: 1 Premier Protein shake ([employer], [employer], [employer]), (1 scoop in 20 oz low fat unsweetened almond milk) at 11am-1pm 1 protein bar (Zone Perfect bars at [employer], [employer], or [employer]) at 1pm-3pm. Dinner at 4-6pm (8 forks of protein and 8 forks of salad/vegetables). Another protein bar at 7pm-9pm. Drinking 64 oz of water Current exercise plan includes: None while in [place] for 6 weeks due to sciatic pain plans to return to the gym for treadmill 1 hour, daily, 300-460 calories At home she is walking and lifting her legs [facility] Medical History Hyperlipidemia HTN (hypertension) Surgical History Hx of carpal tunnel repair Hx of appendectomy Family History Father Diabetes Mother Diabetes Alzheimer disease Son Hypertension Son No problems noted. Daughter No problems noted. Daughter Allergy Brother No problems noted. Brother No problems noted. Brother No problems noted. Brother No problems noted. Sister No problems noted. Sister No problems noted. Sister No problems noted. Sister No problems noted. Sister No problems noted. Sister No problems noted. Social History Household Members: Spouse Housing: Apartment Alcohol intake: former Patient Tobacco Use Status: Never used Tobacco Review of Systems Const All systems reviewed & are unremarkable except as noted in HPI and below Assessment & Plan Assessment & Plan (1) Obesity (BMI 30-39.9): Code(s): E66.9 - Obesity, unspecified Plan: Patient had difficulty with exercising while she was away in [place] due to sciatic pain. She has improved and is now planning on returning to the gym on Saturday. We discussed goals of achieving 300 calories burned per day. She will continue her meal plan as listed above. Continue to text me weekly with her weights and if any questions. We will have her return to the office in 3-4 weeks. She was reminded of her upcoming appointments and will be scheduled to follow up with Ольга. Telehealth Telehealth Location of provider rendering services: practice address Location of patient: address on file Patient Identification confirmed using: Name, : Yes Telehealth method: voice only Patient verbally consented to treatment: Yes Patient verbally consented to billing insurance company: Yes Patient informed of any privacy concerns related to visit: Yes Minutes spent on Phone/Video with Pt.: 15 Coding Level of Care Code Tele Est Pt Level 3 (27386) Diagnoses Obesity (BMI 30-39.9) E66.9 Time Spent (min) 20
== END 2023-07-26 10:29 | disposition home or self-care (01) ==
LOC: HO.HBS 10:29
PROVIDERS: Visit Provider Physician Assistant Surgical
DX: E66.9 Obesity, unspecified (principal); Z68.38 Body mass index [BMI] 38.0-38.9, adult
CPT/HCPCS: 99442

== ENCOUNTER → 2023-07-26 10:29 | Outpatient (BNVA) | payer OTHER, SELFPAY | PROVIDERS: Visit Provider Physician Assistant Surgical ==

== ENCOUNTER 2023-08-05 10:04 | Outpatient (AMB) | payer OTHER, SELFPAY ==
--- NOTE | 2023-08-05 10:16 | A.OFFVIS_ITS ---
Intake VS Expanded 08/05/23 10:33 Height 5 ft 7 in Weight 237 lb BMI 37.1 Intake Visit Reasons: (ov) SWL Material Planning Analyst Required: Yes Material Planning Analyst Name: [id number] Ashley simms Information Interpreted: non-clinical & clinical Allergies omeprazole [From Prilosec] Allergy (Mild, Verified 05/13/23 14:17) Rash HPI Nutrition Presentation Reason for consult elevated BMI Diet Assmnt Details Pt reports following the plan from BRAULIO which is: 1 Premier Protein shake (1 1/2 scoops in 20 oz low fat unsweetened almond milk) at 11am-1pm 1 Zone Perfect bar at 1pm-3pm. Dinner at 4-6pm (8 forks of protein and 8 forks of salad/vegetables) soup with lentils, vegetable and chicken protein bar at 7pm-9pm SW online classes: still none - has been reminded several times but she states she never knew . I walked her through how to access these today Dietary counseling reduction Diagnosis Nutrition problem #1 overweight/obesity As related to (etiology) #1 excess energy intake and physical inactivity As evidenced by (sign/symptom) #1 high BMI Monitoring/Goals Nutrition problem monitoring total energy intake, level of knowledge/skill, total PRO intake, total CHO intake and weight Outcome progress verbalized understanding Learning/Education Readiness to learn fair Stages of change contemplation Educational materials provided Yes Most Recent Diabetes Results: No Data to Display [facility] Medical History Hyperlipidemia HTN (hypertension) Surgical History Hx of carpal tunnel repair Hx of appendectomy Family History Father Diabetes Mother Diabetes Alzheimer disease Son Hypertension Son No problems noted. Daughter No problems noted. Daughter Allergy Brother No problems noted. Brother No problems noted. Brother No problems noted. Brother No problems noted. Sister No problems noted. Sister No problems noted. Sister No problems noted. Sister No problems noted. Sister No problems noted. Sister No problems noted. Social History Household Members: Spouse Housing: Apartment Alcohol intake: former Patient Tobacco Use Status: Never used Tobacco Assessment & Plan Assessment & Plan (1) Obesity (BMI 30-39.9): Code(s): E66.9 - Obesity, unspecified Plan Pt is not cleared. will be seen once she completes her online classes. Coding Level of Care Code Nutr Indiv Subseq (15931) Diagnoses Obesity (BMI 30-39.9) E66.9 Time Spent (min) 30
[2023-08-05 10:33] VITALS: BMI 37.1
== END 2023-08-05 11:47 | disposition home or self-care (01) ==
PROVIDERS: Visit Provider Dietitian, Registered
DX: E66.9 Obesity, unspecified (principal)

== ENCOUNTER → 2023-08-05 10:04 | Outpatient (BNVA) | payer OTHER, SELFPAY | PROVIDERS: Visit Provider Dietitian, Registered | DX: E66.9 Obesity, unspecified (principal); Z68.37 Body mass index [BMI] 37.0-37.9, adult | CPT/HCPCS: 97803 ==

== ENCOUNTER 2023-08-14 13:21 | Outpatient (AMB) | payer OTHER, SELFPAY ==
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
== END 2023-08-14 13:26 | disposition home or self-care (01) ==
LOC: HO.HBST 13:21
PROVIDERS: Visit Provider Counselor Mental Health
DX: F41.9 Anxiety disorder, unspecified (principal); F32.9 Major depressive disorder, single episode, unspecified
CPT/HCPCS: 90834

== ENCOUNTER → 2023-08-14 13:21 | Outpatient (BNVA) | payer OTHER, SELFPAY | PROVIDERS: Visit Provider Counselor Mental Health | DX: F41.9 Anxiety disorder, unspecified (principal); F32.9 Major depressive disorder, single episode, unspecified ==

== ENCOUNTER 2023-08-23 08:32 | Outpatient (AMB) | payer OTHER, SELFPAY ==
--- NOTE | 2023-08-23 08:35 | MHC.OFFVISWM ---
Intake VS Expanded 08/23/23 08:42 BP 132/61 Blood Pressure Location Rt brachial Blood Pressure Position Sitting Pulse 86 Pulse Source Pulse Oximeter Temp 96.0 F L Temperature Source Tympanic Pulse Oximetry 96 Oxygen Delivery Method Room Air Height 5 ft 7 in Weight 233 lb 12.8 oz BMI 36.6 Body Fat % 48.3 Body Fat Mass 112.8 Fat Free Mass 120.8 Visceral Fat Rating 14.0 Body Water % 36.7 Body Water Mass 85.8 Muscle Mass/Score 114.6 Basal Metabolic Rate/Score 1,710 Intake Visit Reasons: ov SWL f/u Training Intern Required: Yes Training Intern Name: office cmi Allergies omeprazole [From Prilosec] Allergy (Mild, Verified 05/13/23 14:17) Rash Medication List - Last Reconciled 08/23/23 by BRAULIO Wong acetaminophen ER (Mapap Arthritis Pain) 0 mg PO alcohol swabs (Alcohol Prep Pads) 0 pad topical amitriptyline 30 mg (3 x 10 mg) PO BEDTIME 90 days blood sugar diagnostic (FreeStyle Lite Strips) As directed blood-glucose meter (FreeStyle Lite Meter kit) As directed capsaicin 0.025% appl topical cholecalciferol (vitamin D3) (Vitamin D3) 25 mcg PO DAILY diclofenac sodium 1% grams topical dulaglutide (Trulicity) 0.75 mg subcut duloxetine 40 mg PO DAILY gabapentin 600 mg PO BID hydrochlorothiazide 25 mg PO DAILY lancets (FreeStyle Lancets) As directed magnesium oxide 400 mg PO DAILY 90 days naproxen 500 mg PO BID ramipril 10 mg PO DAILY riboflavin (vitamin B2) (Vitamin B-2) 200 mg (2 x 100 mg) PO BID 90 days rizatriptan 10 mg PO Q2H PRN 30 days simvastatin 10 mg PO BEDTIME thiamine HCl (vitamin B1) 100 mg PO DAILY 90 days HPI HPI Comments History of Present Illness Details The patient is a pleasant 57 year old female who returns to the clinic for pre-operative surgical weight loss management. They were last seen in the office on 07/26/23, recorded weight at that time was 243.8 pounds, with a BMI of 38.2. Today's weight is 233.8 pounds and BMI is 36.6. There has been a weight loss of 23.4 pounds since initiating the surgical weight loss program on 03/18/23 with a total body weight loss of 9 %. She states she has [address] Called her therapist and to reach out to [facility] and will f/u on that. Blood sugars running 90-114 Pre op work up completed as follows: SWL classes:? 12/13 appts: f/u-09/25/23-needs letter from her provider discussing any concerns? ? RD appts: needs f/u after classes completed Labs: 04/17/23-low B1 H. pylori: 04/12/23-neg CXR: 04/17/23-nad EK04/17/23-normal ABD U/S: 07/12/23-fatty liver UGI: -normal The patient reports her back pain is improving. Has had a broth concoction at night incorporating her protein, vegetables. Current meal plan includes: 1 Premier Protein shake ([employer], [employer], [employer]), (1 scoop in 20 oz low fat unsweetened almond milk) at 11am-1pm 1 protein bar (Zone Perfect bars at [employer], [employer], or [employer]) at 1pm-3pm. Dinner at 4-6pm (8 forks of protein and 8 forks of salad/vegetables). Another protein bar at 7pm-9pm. Drinking 64 oz of water Current exercise plan includes: no longer going to the gym as her daughter just got her a stationary bike. videos at home, daily 30 minutes. new stationary bike at home, 6-7 days per week depending on her back pain 10-15 minutes 3 x per day, does not know how to track calories on the machine. [facility] Medical History Hyperlipidemia HTN (hypertension) Surgical History Hx of carpal tunnel repair Hx of appendectomy Family History Father Diabetes Mother Diabetes Alzheimer disease Son Hypertension Son No problems noted. Daughter No problems noted. Daughter Allergy Brother No problems noted. Brother No problems noted. Brother No problems noted. Brother No problems noted. Sister No problems noted. Sister No problems noted. Sister No problems noted. Sister No problems noted. Sister No problems noted. Sister No problems noted. Social History Household Members: Spouse Housing: Apartment Alcohol intake: former Patient Tobacco Use Status: Never used Tobacco Review of Systems Const All systems reviewed & are unremarkable except as noted in HPI and below Physical Exam Vital Signs: Last Vital Signs Temp 96.0 F L 08/23/23 08:42 Pulse 86 08/23/23 08:42 BP 132/61 08/23/23 08:42 Pulse Ox 96 08/23/23 08:42 Oxygen Delivery Method Room Air 08/23/23 08:42 BMI result Body Mass Index 36.6 Const General: healthy appearing and no acute distress Resp Effort & Inspection: normal respiratory effort Auscultation: clear to auscultation bilaterally Cardio Rate: regular rate Rhythm: regular rhythm GI Auscultation: normal bowel sounds Extrem General: Yes normal to inspection Assessment & Plan Assessment & Plan (1) Obesity (BMI 30-39.9): Code(s): E66.9 - Obesity, unspecified Plan: The patient has made very good progress since her last visit. She is exercising at home as much as possible. We discussed looking at the owners manual of her new stationary bike in Bangl[place]hi to try to identify how to track calories as this is very important to her success. She additionally has completed 6 of the 8 nutrition classes online and will do the rest. She has reached out to her behavioral health therapist for the requested letter of recommendation to proceed with surgery. She was made aware of her follow-up appointment with our behavioral health therapist on September 24. We will refer her now to Dr. Piper for continued preoperative planning. Coding Level of Care Code Est Pt Level 3 (35709) Diagnoses Obesity (BMI 30-39.9) E66.9
[2023-08-23 08:42] VITALS: BP 132/61; PULSE 86; TEMP 35.6; O2SAT 96; BMI 36.6
== END 2023-08-23 09:15 | disposition home or self-care (01) ==
PROVIDERS: Visit Provider Physician Assistant Surgical
DX: E66.9 Obesity, unspecified (principal)
CPT/HCPCS: 99213

== ENCOUNTER → 2023-08-23 08:32 | Outpatient (BNVA) | payer OTHER, SELFPAY | PROVIDERS: Visit Provider Physician Assistant Surgical | DX: E66.9 Obesity, unspecified (principal); Z68.36 Body mass index [BMI] 36.0-36.9, adult | CPT/HCPCS: 99212 ==

== ENCOUNTER 2023-09-04 12:16 | Outpatient (AMB) | payer OTHER, SELFPAY ==
--- NOTE | 2023-09-04 12:43 | MHC.AMNUTRGE ---
Intake Intake Visit Reasons: (OV) F/U SW Police Officer Required: Yes Police Officer Name: paulino [id number] Information Interpreted: non-clinical & clinical Allergies omeprazole [From Prilosec] Allergy (Mild, Verified 05/13/23 14:17) Rash HPI Nutrition Presentation Reason for consult elevated BMI Diet Assmnt Details Pt reports following the plan from PA which is: 1 Premier Protein shake (1 1/2 scoops in 20 oz low fat unsweetened almond milk) at 11am-1pm 1 Zone Perfect bar at 1pm-3pm. Dinner at 4-6pm (8 forks of protein and 8 forks of salad/vegetables) soup with lentils, vegetable and chicken protein bar at 7pm-9pm Exercise: none now due to sciatica. is being followed by an MD for this [facility] online classes: completed , didn't score well but all was reviewed today and pt appears to understand ; asks appropriate questions Dietary counseling reduction Diagnosis Nutrition problem #1 overweight/obesity As related to (etiology) #1 excess energy intake and physical inactivity As evidenced by (sign/symptom) #1 high BMI Monitoring/Goals Nutrition problem monitoring total energy intake, level of knowledge/skill, total PRO intake, total CHO intake and weight Outcome progress progressing Learning/Education Readiness to learn good Stages of change action Educational materials provided Yes Most Recent Diabetes Results: No Data to Display [facility] Medical History Hyperlipidemia HTN (hypertension) Surgical History Hx of carpal tunnel repair Hx of appendectomy Family History Father Diabetes Mother Diabetes Alzheimer disease Son Hypertension Son No problems noted. Daughter No problems noted. Daughter Allergy Brother No problems noted. Brother No problems noted. Brother No problems noted. Brother No problems noted. Sister No problems noted. Sister No problems noted. Sister No problems noted. Sister No problems noted. Sister No problems noted. Sister No problems noted. Social History Household Members: Spouse Housing: Apartment Alcohol intake: former Patient Tobacco Use Status: Never used Tobacco Assessment & Plan Assessment & Plan (1) Obesity (BMI 30-39.9): Code(s): E66.9 - Obesity, unspecified Plan reviewed and explained post op nutrition guidelines . Patient is cleared from a nutrition standpoint for bariatric surgery. Educational requirements have been completed. Reviewed vitamin supplementation and commitment to protein shake for several months post surgery. Encouraged communication with office as needed Coding Level of Care Code Nutr Indiv Subseq (22358) Diagnoses Obesity (BMI 30-39.9) E66.9 Time Spent (min) 30
== END 2023-09-04 13:04 | disposition home or self-care (01) ==
PROVIDERS: Visit Provider Dietitian, Registered
DX: E66.9 Obesity, unspecified (principal)

== ENCOUNTER → 2023-09-04 12:16 | Outpatient (BNVA) | payer OTHER, SELFPAY | PROVIDERS: Visit Provider Dietitian, Registered | DX: E66.9 Obesity, unspecified (principal) | CPT/HCPCS: 97803 ==

== ENCOUNTER 2023-09-25 10:00 | Outpatient (AMB) | payer OTHER, SELFPAY ==
--- NOTE | 2023-09-25 10:18 | A.OFFWM_ITS ---
Intake Intake Visit Reasons: VIDEO F/U Allergies omeprazole [From Prilosec] Allergy (Mild, Verified 05/13/23 14:17) Rash [facility] Medical History Hyperlipidemia HTN (hypertension) Surgical History Hx of carpal tunnel repair Hx of appendectomy Family History Father Diabetes Mother Diabetes Alzheimer disease Son Hypertension Son No problems noted. Daughter No problems noted. Daughter Allergy Brother No problems noted. Brother No problems noted. Brother No problems noted. Brother No problems noted. Sister No problems noted. Sister No problems noted. Sister No problems noted. Sister No problems noted. Sister No problems noted. Sister No problems noted. Social History Household Members: Spouse Housing: Apartment Alcohol intake: former Patient Tobacco Use Status: Never used Tobacco Behavioral Health Assessment Weight Management Therapy Therapy Notes Details PT presents for a follow up. Pt reports she has been struggling lately to be consistent with exercise due to multiple physical issues and pain levels. But, so far she has lost the weight required before bariatric surgery, reaching initial goal. PT also sent me via email the letter her provider gave her in which it is stated her diagnosis, however therapist did not stated if client was or not a good candidate. INTERVENTIONS: Today we processed her progress and challenges with weight-loss journey. Client was validated and feelings normalized as she has a lot of medical issues impacting her mood. We discussed available resources and importance of follow up and keep appointmen t with providers. PHQ-9 administered again, and scores have decreased. Pt was provided with variety of coping strategies to manage anxiety, stress and worry due to family challenges. RESPONSE: Pt was very open and engaged. She has been compliant with required things from this provider showing her commitment with program. PLAN: Pt has been cleared from standpoint. She doesn't need a f/up with me before surgery, but it is advised to follow up post surgery. She is advised to continue her counseling services and request therapist frequent visits as needed. Presenting Concerns Referral Source P Provider. Pt sees Antoni Bass. Reason for referral Completion of behavioral health assessment as part of process for weight-loss surgery. Precipitating Event Medical issues. Living Situation Current Living Situation Rent Pain Screening Current pain? Yes Pain in the last few months? Yes Questionnaires PHQ-9 Over the last 2 weeks, how often have you been bothered by any of the following problems? 1. Little interest or pleasure in doing things: not at all 2. Feeling down, depressed, or hopeless: several days 3. Trouble falling or staying asleep, or sleeping too much: several days 4. Feeling tired or having little energy: several days 5. Poor appetite or overeating: several days 6. Feeling bad about yourself - or that you are a failure or have let yourself or your family down: not at all 7. Trouble concentrating on things, such as reading the newspaper or watching t elevision: several days 8. Moving or speaking so slowly that other people could have noticed. Or the opposite - being so fidgety or restless that you have been moving around a lot more than usual: several days 9. Thoughts that you would be better off or of hurting yourself in some way: not at all Total score: 6 Depression Screening Done: Yes [id number] - PHQ-9 Billing: Yes Source: Developed by Drs. Truong Brock, Raiza Lopes, Kyler rodriguez nd colleagues, with an educational jacky from [employer]. Assessment & Plan Assessment & Plan (1) Mood disorder due to known physiological condition with depressive features: Code(s): F06.31 - Mood disorder due to known physiological condition with depressive features (2) Generalized anxiety disorder: Code(s): F41.1 - Generalized anxiety disorder (3) Panic disorder [episodic paroxysmal anxiety]: Code(s): F41.0 - Panic disorder [episodic paroxysmal anxiety] Plan Pt has been cleared from standpoint. We will follow up again post-op. Telehealth Telehealth Location of provider rendering services: other (Home office. [place], [place] Location of patient: address on file Patient Identification confirmed using: Name, : Yes Telehealth method: voice only Patient verbally consented to treatment: Yes Patient verbally consented to billing insurance company: Yes Patient informed of any privacy concerns related to visit: No Minutes spent on Phone/Video with Pt.: 45 Coding Level of Care Code Established Pt Tele Psytx 45 mins ([id number]) Patient Type Established Diagnoses Mood disorder due to known physiological condition with depressive features F06.31 Generalized anxiety disorder F41.1 Panic disorder [episodic paroxysmal anxiety] F41.0 Time Spent (min) 45
== END 2023-09-25 10:45 | disposition home or self-care (01) ==
LOC: HO.HBST 10:38
PROVIDERS: Visit Provider Counselor Mental Health
DX: F06.31 Mood disorder due to known physiological condition with depressive features (principal); F41.1 Generalized anxiety disorder; F41.0 Panic disorder [episodic paroxysmal anxiety]
CPT/HCPCS: 90834

== ENCOUNTER → 2023-09-25 10:00 | Outpatient (BNVA) | payer OTHER, SELFPAY | PROVIDERS: Visit Provider Counselor Mental Health | DX: F41.9 Anxiety disorder, unspecified (principal); F32.9 Major depressive disorder, single episode, unspecified ==

== ENCOUNTER 2023-09-27 07:57 | Outpatient (AMB) | payer OTHER, SELFPAY ==
--- NOTE | 2023-09-27 07:50 | A.OFFVIS_ITS ---
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 DESIGNER* Allergies omeprazole [From Prilosec] Allergy (Mild, Verified 09/27/23 09:36) Rash Medication List - Last Reconciled 09/27/23 by Matthew Piper MD acetaminophen ER (Mapap Arthritis Pain) 0 mg PO alcohol swabs (Alcohol Prep Pads) 0 pad topical amitriptyline 30 mg (3 x 10 mg) PO BEDTIME 90 days blood sugar diagnostic (FreeStyle Lite Strips) As directed blood-glucose meter (FreeStyle Lite Meter kit) As directed capsaicin 0.025% appl topical cholecalciferol (vitamin D3) (Vitamin D3) 25 mcg PO DAILY diclofenac sodium 1% grams topical dulaglutide (Trulicity) 0.75 mg subcut duloxetine 40 mg PO DAILY gabapentin 600 mg PO BID hydrochlorothiazide 25 mg PO DAILY lancets (FreeStyle Lancets) As directed magnesium oxide 400 mg PO DAILY 90 days ramipril 10 mg PO DAILY riboflavin (vitamin B2) (Vitamin B-2) 200 mg (2 x 100 mg) PO BID 90 days rizatriptan 10 mg PO Q2H PRN 30 days simvastatin 10 mg PO BEDTIME thiamine HCl (vitamin B1) 100 mg PO DAILY 90 days HPI TV Consult/Transfer Antoni *DISPLAY AND [employer]NER DESIGNER* HPI Details Start time: 9.17am, End time: 9.50am An additional 12 minutes were used at a different part of the day to complete this note and review patient's records. ?I spent 33 minutes speaking with the patient on the phone plus an additional 12 minutes reviewing and updating records for a total of 45 minutes HPI Comments History of Present Illness Details Overall weight loss: 21.3lbs, 8.3% TBWL Wakes up: 9am, Sleeps: 11pm Current meal plan includes: 1 Premier Protein shake ([employer], [employer], [employer]), (1 scoop in 20 oz low fat unsweetened almond milk) at 11am-1pm 1 protein bar (Zone Perfect bars at [employer], [employer], or [employer]) at 1pm-3pm.Dinner at 4-6pm (8 forks of protein and 8 forks of salad/vegetables). Another protein bar at 7pm-9pm. Drinking 64 oz of water Exercise: stationary bike [facility] Medical History (Updated 09/25/23 @ 10:46 by Trinidad Arciniega [facility]) Hyperlipidemia HTN (hypertension) Surgical History (Updated 09/27/23 @ 09:29 by Matthew Piper MD) H/O hysterectomy for benign disease Hx of carpal tunnel repair Family History Father Diabetes Mother Diabetes Alzheimer disease Son Hypertension Son No problems noted. Daughter No problems noted. Daughter Allergy Brother No problems noted. Brother No problems noted. Brother No problems noted. Brother No problems noted. Sister No problems noted. Sister No problems noted. Sister No problems noted. Sister No problems noted. Sister No problems noted. Sister No problems noted. Social History Household Members: Spouse Housing: Apartment Alcohol intake: former Patient Tobacco Use Status: Never used Tobacco Assessment & Plan Assessment & Plan (1) Obesity (BMI 30-39.9): Code(s): E66.9 - Obesity, unspecified Plan: 1. Plan for lap sleeve gastrectomy including upper GI endoscopy. All tests has been completed and reviewed and the patient is cleared for the surgery. ?If diaphragmatic or ventral hernias are present at time of surgery, these will be repaired laparoscopically as well. Risks and complications were discussed in detail including possible conversion to an open procedure, anastomotic leak, bleeding requiring transfusion, small bowel obstruction, , DVT and pulmonary embolism, cardiac, or pulmonary complications, as snf complications such as anastomotic ulcer, insufficient weight loss and vitamin deficiencies. I emphasized the importance of close follow-up, adherence to instructions and good communication. So far she has proven to be an excellent communicator and very compliant with all our directions accomplishing a great weight loss. I believe that she is an excellent candidate and she is ready. 2. The patient participated in a structured preoperative lifestyle intervention program supervised by a physician the 6 months preceding the surgical procedure. The lifestyle intervention included a structured nutritional plan with a specific daily protein intake goal, an exercise plan with a 2000 calorie burn weekly goal, weekly behavior modification guidance and completion of eight 1- hour online nutritional classes and passing successfully the corresponding quizzes. Adherence to preoperative care plan was demonstrated by completing an extensive preoperative work-up. Program participation was demonstrated by completing 5 visits with our medical team and by sharing weekly weight measurements weekly for 6 consecutive months via an approved body composition scale. Compliance to the lifestyle intervention was demonstrated by achieving a 21.3lbs weight-loss or 8.28% total body weight loss (TBWL). No medications were used to achieve this weight loss. In our published experience an over 7% preoperative TBWL, achieved by meeting the diet and exercise goals of our program improves surgical outcomes, reduces the potential for surgical complications, and predicts a statistically significant higher weight loss up to 6 years postoperatively. 3. Change nutritional plan to one Premier protein shake (HALF scoop in 8oz almon d milk) at 10am-12pm, one Zone Perfect protein bar at 1pm-3pm, another Premier protein shake (HALF scoop in 8oz almond milk) at 4pm-6pm, dinner at 7pm (8 forks of protein and 8 forks of salad or vegetables) and one more Zone Perfect protein bar at 9pm-11pm 4. Start stationary bike at resistance 2.0 and burn 100 calories, three times per day, every day. Goal is to burn 2000 calories per week on the bike Coding Level of Care Code Tele Est Pt Level 5 (81686) Diagnoses Obesity (BMI 30-39.9) E66.9
[2023-09-27 09:27] VITALS: BMI 36.9
== END 2023-09-27 09:54 | disposition home or self-care (01) ==
LOC: HO.HBS 07:57
PROVIDERS: Visit Provider Surgery
DX: E66.9 Obesity, unspecified (principal); Z68.36 Body mass index [BMI] 36.0-36.9, adult
CPT/HCPCS: 99443

== ENCOUNTER → 2023-09-27 07:57 | Outpatient (BNVA) | payer OTHER, SELFPAY | PROVIDERS: Visit Provider Surgery ==

== ENCOUNTER 2023-10-03 12:17 | Outpatient (AMB) | payer OTHER, SELFPAY ==
[2023-10-03 13:14] VITALS: BP 115/70; PULSE 78; O2SAT 98; BMI 37.6
--- NOTE | 2023-10-03 13:14 | MHC.OFFVIS ---
Intake Vital Signs 10/03/23 13:14 Height 5 ft 7 in Weight 240 lb 4 oz BMI 37.6 BP 115/70 Blood Pressure Location Rt brachial Position Sitting Pulse 78 Pulse Source Pulse Oximeter Pulse Oximetry (%) 98 Oxygen Delivery Method Room Air Intake Visit Reasons: Follow up Shared Services Manager Required: Yes Shared Services Manager Name: Zarina [id number] Accompanied by: Self / Same As Patient Allergies omeprazole [From Prilosec] Allergy (Mild, Verified 10/03/23 13:17) Rash HPI HPI Comments History of Present Illness Details 57 y/o female patient presents for follow up of KIAH on CPAP and migraine. Certified check scaler Gilma Barnard helped for this visit The CPAP compliance and therapy response report (07/05/23-10/02/23) reviewed with the patient. Pt is on APAP [id number]. Usage days 73%, average usage 5 hours 30 min. The residual AHI 5.6, and the max pressure 13. Pt reports she could not sleep well with CPAP recently due to her sciatica pain. She wakes up in the middle of night and massage her right leg to relieve the pain. Pt reports that her primary care increased gabapentin to 600 mg TID, but patient did not try 600 mg TID, she still takes BID. She is also followed by [facility] for her shoulder pain, and had cortisone injection recently. She will call to make an appointment for sciatica pain. She tried PT for her back, but physical therapy aggravated the pain. Pt's migraine frequency and intensity has improved, but has 4-5 migraine days per month. Bright sunlight and neck pain triggered migraine. She uses rizatriptan at onset of migraine and it helped. Pt is on amitriptyline 30 mg, magnesium 400 mg qHS, vitamin B2 200 mg BID. She is on wt management program and have bariatric surgery when her wt will reach to 232 lb. [facility] Medical History Hyperlipidemia HTN (hypertension) Surgical History H/O hysterectomy for benign disease Hx of carpal tunnel repair Family History Father Diabetes Mother Diabetes Alzheimer disease Son Hypertension Son No problems noted. Daughter No problems noted. Daughter Allergy Brother No problems noted. Brother No problems noted. Brother No problems noted. Brother No problems noted. Sister No problems noted. Sister No problems noted. Sister No problems noted. Sister No problems noted. Sister No problems noted. Sister No problems noted. Social History Household Members: Spouse Housing: Apartment Alcohol intake: former Patient Tobacco Use Status: Never used Tobacco Review of Systems Const All systems reviewed & are unremarkable except as noted in HPI and below ENT Reports Normal hearing present Neuro Reports Normal hearing present Physical Exam Vital Signs: Last Vital Signs Pulse 78 10/03/23 13:14 BP 115/70 10/03/23 13:14 Pulse Ox 98 10/03/23 13:14 Oxygen Delivery Method Room Air 10/03/23 13:14 BMI result Body Mass Index 37.6 Const General: cooperative and comfortable Nutritional Appearance: obese Orientation/consciousness: patient oriented x3 Limitations: language barrier (syriac speaking only.) Neck Neck: Yes full ROM and Yes supple Resp Effort & Inspection: normal respiratory effort and able to speak in complete sentences Neuro General: patient oriented x3 and gait normal Cranial nerves: Yes Bilaterally intact EOM present, Yes Midline tongue present, Yes Normal hearing present, Yes Ability to bilaterally rotate head present and Yes Ability to bilaterally elevate shoulders present Cognition (Neuro): normal cognition Gait exam (Neuro): Normal gait present Psych Appearance: grossly normal Mental Status: mental status grossly normal Speech and movement: Normal speech and movement present Assessment & Plan Assessment & Plan (1) KIAH on CPAP: Code(s): G47.33 - Obstructive sleep apnea (adult) (pediatric); Z99.89 - Dependence on other enabling machines and devices (2) Morbid obesity: Code(s): E66.01 - Morbid (severe) obesity due to excess calories (3) Migraine with aura, not intractable, without status migrainosus: Code(s): G43.109 - Migraine with aura, not intractable, without status migrainosus Plan Advised patient to continue to use APAP at 5-20 cmH2O nightly, more than 4 hours as pt has experienced good clinical effect from it. Clean mask and tubing regularly. Stressed patient regarding compliance. Continue to take magnesium 400 mg, amitriptyline 30 mg q HS and vitamin B 400 mg q daily. Continue to use rizatriptan as needed for acute migraine treatment. Advised patient to try gabapentin 600 mg TID to manage sciatica pain. Monitor blood glucose regularly, increase physical activity and mange diet for wt reduction. Coding Level of Care Code Est Pt Level 4 (10857) Diagnoses KIAH on CPAP G47.33; Z99.89 Morbid obesity E66.01 Migraine with aura, not intractable, without status migrainosus G43.109
== END 2023-10-03 13:50 | disposition home or self-care (01) ==
PROVIDERS: Visit Provider Nurse Practitioner Family
DX: G47.33 Obstructive sleep apnea (adult) (pediatric) (principal); Z99.89 Dependence on other enabling machines and devices; E66.01 Morbid (severe) obesity due to excess calories; G43.109 Migraine with aura, not intractable, without status migrainosus
CPT/HCPCS: 99214

== ENCOUNTER → 2023-10-03 12:17 | Outpatient (BNVA) | payer OTHER, SELFPAY | PROVIDERS: Visit Provider Nurse Practitioner Family | DX: G43.109 Migraine with aura, not intractable, without status migrainosus (principal); G47.33 Obstructive sleep apnea (adult) (pediatric); E66.01 Morbid (severe) obesity due to excess calories; Z99.89 Dependence on other enabling machines and devices; Z68.37 Body mass index [BMI] 37.0-37.9, adult | CPT/HCPCS: 99212 ==

== ENCOUNTER 2023-12-06 07:55 | Outpatient (AMB) | payer OTHER, SELFPAY ==
[2023-12-06 12:26] VITALS: BMI 36.2
--- NOTE | 2023-12-06 12:26 | A.OFFVIS_ITS ---
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 omeprazole [From Prilosec] Allergy (Mild, Verified 12/06/23 12:29) Rash Medication List - Last Reconciled 12/06/23 by Matthew Piper MD acetaminophen ER (Mapap Arthritis Pain) 0 mg PO alcohol swabs (Alcohol Prep Pads) 0 pad topical amitriptyline 30 mg (3 x 10 mg) PO BEDTIME 90 days blood sugar diagnostic (FreeStyle Lite Strips) As directed blood-glucose meter (FreeStyle Lite Meter kit) As directed capsaicin 0.025% appl topical cholecalciferol (vitamin D3) (Vitamin D3) 25 mcg PO DAILY diclofenac sodium 1% grams topical dulaglutide (Trulicity) 0.75 mg subcut duloxetine 40 mg PO DAILY gabapentin 600 mg PO BID hydrochlorothiazide 25 mg PO DAILY lancets (FreeStyle Lancets) As directed magnesium oxide 400 mg PO DAILY 90 days ondansetron HCl 4 mg PO Q12H pantoprazole 40 mg PO DAILY polyethylene glycol 3350 17 grams PO DAILY ramipril 10 mg PO DAILY riboflavin (vitamin B2) (Vitamin B-2) 200 mg (2 x 100 mg) PO BID 90 days rizatriptan 10 mg PO Q2H PRN 30 days simvastatin 10 mg PO BEDTIME sucralfate 10 mL PO BID thiamine HCl (vitamin B1) 100 mg PO DAILY 90 days HPI HPI 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*: Details: Start time: 12.28pm, End time: 12.48pm ?I spent 15 minutes speaking with the patient on the phone plus an additional 5 minutes reviewing and updating records for a total of 20 minutes HPI Comments Details: Overall weight loss: 26.1lbs, or 10.15% TBWL Nutritional plan: to one Premier protein shake (HALF scoop in 8oz almond milk) at 10am-12pm, one Zone Perfect protein bar at 1pm-3pm, another Premier protein shake (HALF scoop in 8oz almond milk) at 4pm-6pm, dinner at 7pm (8 forks of protein and 8 forks of salad or vegetables) and one more Zone Perfect protein bar at 9pm-11pm Exercise: stationary bike at resistance 2.0 and burn 100 calories, three times per day, every day. Goal is to burn 2000 calories per week on the bike FORMERLY [facility], [facility]–1983 Medical History Hyperlipidemia HTN (hypertension) Surgical History H/O hysterectomy for benign disease Hx of carpal tunnel repair Family History Father Diabetes Mother Diabetes Alzheimer disease Son Hypertension Son No problems noted. Daughter No problems noted. Daughter Allergy Brother No problems noted. Brother No problems noted. Brother No problems noted. Brother No problems noted. Sister No problems noted. Sister No problems noted. Sister No problems noted. Sister No problems noted. Sister No problems noted. Sister No problems noted. Social History Household Members: Spouse Housing: Apartment Alcohol intake: former Patient Tobacco Use Status: Never used Tobacco Telehealth Telehealth Telehealth Platform: Telephone Location of provider rendering services: practice address Location of patient: address on file Patient Identification confirmed using: Name, : Yes Telehealth method: voice only Patient verbally consented to treatment: Yes Patient verbally consented to billing insurance company: Yes Patient informed of any privacy concerns related to visit: Yes Minutes spent on Phone/Video with Pt.: 20 Assessment & Plan Assessment & Plan (1) Morbid obesity: Code(s): E66.01 - Morbid (severe) obesity due to excess calories Category: Medical Plan: 1. Plan for lap sleeve gastrectomy including upper GI endoscopy. All tests has been completed and reviewed and the patient is cleared for the surgery. ?If diaphragmatic or ventral hernias are present at time of surgery, these will be repaired laparoscopically as well. Risks and complications were discussed in detail including possible conversion to an open procedure, anastomotic leak, bleeding requiring transfusion, small bowel obstruction, , DVT and pulmonary embolism, cardiac, or pulmonary complications, as joint terminal attack controller complications such as anastomotic ulcer, insufficient weight loss and vitamin deficiencies. I emphasized the importance of close follow-up, adherence to instructions and good communication. So far she has proven to be an excellent communicator and very compliant with all our directions accomplishing a great weight loss. I believe that she is an excellent candidate and she is ready. 2. Preop prescriptions were provided and explained the purpose of each one. Need to be purchased preop. Start Pantoprazole now as you get it from the pharmacy, 1 pill per day. Sucralfate and Zofran are for after surgery as needed. 3. Bowel prep: please do 7 packets ?of Miralax mixing each one with a an 8oz glass of water, crystal light, gatorade zero, or propel ?on 12/17/23 and the same amount on 12/18/23. The Miralax you begin with one packet at a time in 8oz water or crystal light, gatorade zero, or propel ?as early in the day as you can and you do them back to back until you finish them. Continue the protein shakes during? the bowel prep. 4. Needs to purchase 1oz medicine cups . 5. Needs to purchase Children's liquid Tylenol for postop pain control. 6. She needs to stop the MPAP and Trulicity as of tomorrow 12/07/23. Stop the Gabapentin on Saturday12/15/23 (last day to take the pill). Avoid aspirin, motrin, Advil, Aleve, Ibuprofen, Naproxyn. Tylenol is OK. 7. She needs to purchase the Celebrate 4:1 protein shakes from the hospital's gift shop. 8. Will do basic preop blood work-up any day between Saturday12/09/23 and Saturday12/13/23 fasting for 12 hours and is scheduled to see the Anesthesiologist prior to the day of surgery. 9. Importance of adherence to postop folllow-up and recommendations was underscored and she understands that. 10. Stop food and bars as of tomorrow 12/07/23 and continue with 5 Premier protein shakes (ONE scoop EACH in 8oz almond milk) at 10am-12pm, 1pm-3pm, 4pm-6pm, 7pm- 9pm and 10pm-12am. 11. No soups, broths or V8 12. The patient's?medical?history has been reviewed and they are considered low risk for post op DVT and therefore DVT prophylaxis is not considered necessary. Travel after surgery was reviewed. The patient has not disclosed any travel plans during the first 30 days after surgery and they have been advised that within the first 30 days after surgery any bus, plane, train or car travel over 2 hours in duration is contraindicated due to the possibility of developing blood clots from immobility. Any travel, needs to include periods of ambulation of 10 minutes in duration every 2 hours.? Patient was instructed to discuss any plans for travel during this period with their bariatric surgeon.? 13. Use your CPAP daily and bring it to the hospital with your mask 14. Please take at the day of surgery the following medications: Only the Ramipril and the Hydrochlorothiazide based on the following parameters: Measure your blood pressure daily in the morning. If the blood pressure is: Below 120/70: do not take the Ramapril or the Hydrochlorothiazide 121/71 to 135/85: take HALF pill of Ramapril and HALF pill of Hydrochlorothiazide Over 136/86: take the whole pill of Ramapril and the whole pill of Hydrochlorothiazide 15. Absolutely no smoking or vaping, or marijuana until the surgery and for at least the first 4 weeks. Only nicotine patches are allowed. 16. Send me weight measurements on Saturday12/13/23 and then on 12/19/23, the day of surgery before you go to the hospital. 17. Avoid any steroids by mouth for any reason. Let me know if someone prescribes them to you 18. These instructions supersede anything else you read in the handbook, anything you watched in videos or classes or you were told by any other provider. If there is any conflict, you follow the above instructions and nothing else. Orders: Orders Comprehensive Met. Panel Today E66.9 - Obesity, unspecified, E78.5 - Hyperlipidemia, unspecified, I10 - Essential (primary) hypertension, Z68.37 - Body mass index [BMI] 37.0-37.9, adult TSH reflex Free T4 Today E66.9 - Obesity, unspecified, E78.5 - Hyperlipidemia, unspecified, I10 - Essential (primary) hypertension, Z68.37 - Body mass index [BMI] 37.0-37.9, adult Hemoglobin A1c Today E66.9 - Obesity, unspecified, E78.5 - Hyperlipidemia, unspecified, I10 - Essential (primary) hypertension, Z68.37 - Body mass index [BMI] 37.0-37.9, adult Prothrombin Time INR Today E66.9 - Obesity, unspecified, E78.5 - Hyperlipidemia, unspecified, I10 - Essential (primary) hypertension, Z68.37 - Body mass index [BMI] 37.0-37.9, adult Vitamin B12 Today E66.9 - Obesity, unspecified, E78.5 - Hyperlipidemia, unspecified, I10 - Essential (primary) hypertension, Z68.37 - Body mass index [BMI] 37.0-37.9, adult Partial Thromboplastin Time Today E66.9 - Obesity, unspecified, E78.5 - Hyperlipidemia, unspecified, I10 - Essential (primary) hypertension, Z68.37 - Body mass index [BMI] 37.0-37.9, adult Vitamin D 25-OH Total Today E66.9 - Obesity, unspecified, E78.5 - Hyperlipidemia, unspecified, I10 - Essential (primary) hypertension, Z68.37 - Body mass index [BMI] 37.0-37.9, adult Complete Blood Count Auto Diff Today E66.9 - Obesity, unspecified, E78.5 - Hyperlipidemia, unspecified, I10 - Essential (primary) hypertension, Z68.37 - Body mass index [BMI] 37.0-37.9, adult Zinc Today E66.9 - Obesity, unspecified, E78.5 - Hyperlipidemia, unspecified, I10 - Essential (primary) hypertension, Z68.37 - Body mass index [BMI] 37.0- 37.9, adult Vitamin A Today E66.9 - Obesity, unspecified, E78.5 - Hyperlipidemia, unspecified, I10 - Essential (primary) hypertension, Z68.37 - Body mass index [BMI] 37.0-37.9, adult Vitamin B1 Today E66.9 - Obesity, unspecified, E78.5 - Hyperlipidemia, unspecified, I10 - Essential (primary) hypertension, Z68.37 - Body mass index [BMI] 37.0-37.9, adult Lipid Panel Today E66.9 - Obesity, unspecified, E78.5 - Hyperlipidemia, unspecified, I10 - Essential (primary) hypertension, Z68.37 - Body mass index [BMI] 37.0-37.9, adult Type and Screen Today E66.9 - Obesity, unspecified, E78.5 - Hyperlipidemia, unspecified, I10 - Essential (primary) hypertension, Z68.37 - Body mass index [BMI] 37.0-37.9, adult C Reactive Protein Today E66.9 - Obesity, unspecified, E78.5 - Hyperlipidemia, unspecified, I10 - Essential (primary) hypertension, Z68.37 - Body mass index [BMI] 37.0-37.9, adult Ferritin Today E66.9 - Obesity, unspecified, E78.5 - Hyperlipidemia, unspecified, I10 - Essential (primary) hypertension, Z68.37 - Body mass index [BMI] 37.0-37.9, adult IRON PROFILE Today E66.9 - Obesity, unspecified, E78.5 - Hyperlipidemia, unspecified, I10 - Essential (primary) hypertension, Z68.37 - Body mass index [BMI] 37.0-37.9, adult Medications: New pantoprazole 40 mg PO DAILY 90 tabs 0RF K21.9 - Gastro-esophageal reflux disease without esophagitis sucralfate 10 mL PO BID 600 mL 2RF K21.9 - Gastro-esophageal reflux disease without esophagitis ondansetron HCl Only take one every 12 hours as needed if you have nausea 4 mg PO Q12H 20 tabs 0RF nausea and vomiting R11.0 - Nausea polyethylene glycol 3350 Mix each measuring cup with 8oz of water, Crystal light, or Gatorade zero, or Propel and do 7 measuring cups on 12/17/23 and another 7 measuring cups on 12/18/23 17 grams PO DAILY 238 grams 0RF Z01.818 - Encounter for other preprocedural examination
== END 2023-12-06 12:49 | disposition home or self-care (01) ==
LOC: HO.HBS 07:55
PROVIDERS: Visit Provider Surgery
DX: E66.01 Morbid (severe) obesity due to excess calories (principal)
CPT/HCPCS: 99499

== ENCOUNTER → 2023-12-06 07:55 | Outpatient (BNVA) | payer OTHER, SELFPAY | PROVIDERS: Visit Provider Surgery ==

== ENCOUNTER → 2023-12-13 10:23 | Outpatient (BNVA) | payer OTHER, SELFPAY | PROVIDERS: Visit Provider Physician Assistant Surgical ==

== ENCOUNTER 2023-12-13 10:28 | Outpatient (REF) | payer OTHER, SELFPAY ==
[2023-12-13 10:53] LABS: MANUAL DIFF FLAG NO
[2023-12-13 12:12] LABS: Basophils Absolute Auto 0.1 X10*3/uL (0.0-0.2); Basophils Percent Auto 0.6 % (0-2); Eosinophils Absolute Auto 0.1 X10*3/uL (0.0-0.4); Eosinophils Percent Auto 1.6 % (0-4); Hematocrit 45.3 % (37.0-47.0); Hemoglobin 14.8 g/dl (12.0-16.0); Imm Gran Abs Auto 0.03 X10*3/uL (0.00-0.03); Imm Gran Pct Auto 0.4 % (0.0-0.4); Lymphocytes Absolute Auto 2.1 X10*3/uL (1.2-4.9); Lymphocytes Percent Auto 25.5 % (20-40); Mean Corpuscular HGB Conc 32.7 g/dl (31.0-35.0); Mean Corpuscular Hemoglobin 28.4 pg (27.0-33.0); Mean Corpuscular Volume 86.8 fL (80.0-98.0); Mean Platelet Volume 10.1 fL (9.4-12.3); Monocytes Absolute Auto 0.6 X10*3/uL (0.1-1.2); Monocytes Percent Auto 7.2 % (2-11); Neutrophils Absolute Auto 5.4 x10*3/uL (2.0-8.3); Neutrophils Percent Auto 64.7 % (45-73); Platelet Count 321 X10*3/uL (160-400); Red Blood Count 5.22 X10*6/uL (4.20-5.50); Red Cell Distribution Width 12.8 % (11.0-16.0); White Blood Count 8.3 X10*3/uL (4.8-10.8)
[2023-12-13 12:16] LABS: Prothrombin Time 12.3 SEC (11.1-13.3)
[2023-12-13 12:19] LABS: Partial Thromboplastin Time 35.9 SEC (26.0-36.8)
[2023-12-13 12:21] LABS: Estimated Average Glucose 105 mg/dL; Hemoglobin A1c % 5.3 % (<6.0)
[2023-12-13 12:45] LABS: Alanine Aminotransferase 10 U/L (0-31); Albumin Level 4.1 g/dL (3.5-5.0); Alkaline Phosphatase 77 U/L (39-117); Anion Gap 11 (12-20); Aspartate Amino Transferase 21 U/L (5-31); Bilirubin Total 0.4 mg/dL (0.0-1.0); Blood Urea Nitrogen 15 mg/dL (9-16); C Reactive Protein 0.61 mg/dL (< or = 0.50); Carbon Dioxide 31 mmol/L (22-29); Chloride 104 mmol/L (96-108); Cholesterol 197 mg/dL (<200); Estimated Glomerular Filt Rate > 60; Glucose Random 72 mg/dL (60-115); HDL Cholesterol 45 mg/dL (>40); Iron 50 mcg/dL (30-160); LDL Cholesterol Calculated 136 mg/dL (<100); Percent Iron Saturation 20 % (15-50); Sodium 142 mmol/L (135-145); Total Iron Binding Capacity 252 mcg/dL (228-428); Total Protein 7.9 g/dL (6.5-8.0); Triglycerides 82 mg/dL (<150); Unsaturated Iron Binding 202 ug/dL
[2023-12-13 13:04] LABS: Ferritin 170 ng/mL (10-250); TSH reflex Free T4 0.46 uIU/mL (0.32-4.0); Vitamin D 25-OH Total 37.9 ng/mL (>30)
[2023-12-13 13:05] LABS: Vitamin B12 854 pg/mL (200-900)
[2023-12-18 00:39] LABS: Zinc 70 mcg/dL (60-130)
[2023-12-18 05:39] LABS: Vitamin A 26 mcg/dL (38-98)
[2023-12-20 06:28] LABS: Vitamin B1 22 nmol/L (8-30)
== END 2023-12-13 10:29 | disposition home or self-care (01) ==
LOC: HO.LAB 10:28
PROVIDERS: Visit Provider Surgery
DX: E66.9 Obesity, unspecified (principal); E78.5 Hyperlipidemia, unspecified; I10 Essential (primary) hypertension; Z68.37 Body mass index [BMI] 37.0-37.9, adult
CPT/HCPCS: 36415; 80053; 80061; 82306; 82607; 82728; 83036; 83540; 84425; 84443; 84590; 84630; 85025; 85610; 85730; 86140

== ENCOUNTER 2023-12-19 06:31 | Inpatient (IN) | payer OTHER, SELFPAY ==
[2023-12-11 15:10] VITALS: BMI 37.1
--- NOTE | 2023-12-17 12:22 | P.CONAN_ITS ---
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) Anxiety disorder (Acute) Obesity (BMI 30-39.9) (Acute) Shortness of breath (Acute) Heart palpitations (Acute) Precordial chest pain (Acute) KIAH on CPAP (Acute) Exertional chest pain (Acute) Tachycardia (Acute) Anxiety (Acute) Fibromyalgia (Acute) Morbid obesity (Acute) Sleep apnea (Acute) Migraine with aura, not intractable, without status migrainosus (Acute) Cervicalgia of tzrcbybo-ppgauya-skekb region (Acute) Hyperlipidemia (Acute) HTN (hypertension) (Acute) Past Medical History Medical History Migraines DJD (degenerative joint disease) Non-insulin dependent type 2 diabetes mellitus Panic disorder Left hip pain Left knee pain Depression KIAH on CPAP Hyperlipidemia HTN (hypertension) Family History Family History Father Diabetes Mother Diabetes Alzheimer disease Son Hypertension Son No problems noted. Daughter No problems noted. Daughter Allergy Brother No problems noted. Brother No problems noted. Brother No problems noted. Brother No problems noted. Sister No problems noted. Sister No problems noted. Sister No problems noted. Sister No problems noted. Sister No problems noted. Sister No problems noted. Surgical History Surgical History History of ankle surgery Hx of tubal ligation Hx of BSO (bilateral salpingo-oophorectomy) H/O hysterectomy for benign disease Hx of carpal tunnel repair Social History Social History Household Members: Spouse Housing: Apartment Are you a primary personal care service provider to a significant other at home: No Do you presently have visiting nurse or other home services: Yes (son is NUCLEAR MONITORING TECHNICIAN) Alcohol intake: former Comment: uses a cane at times Patient Tobacco Use Status: Never used Tobacco Use of substances other than those prescribed or required for medical reasons: No Have you been hit, kicked, punched, or otherwise hurt by someone within the past year? If so, by whom?: No Are you DNR?: No Advance Directives: No Advance Directives Information Provided: Yes Advance Directives on File: No Recently lost weight without trying: No Nutrition Risks: No Nutritional Risk Poor oral hygiene: No Meds Allergies Allergy/AdvReac Type Severity Reaction Status Date / Time omeprazole [From Prilosec] Allergy Mild Rash Verified 12/19/23 06:32 Home Medications ?Medication ?Instructions ?Recorded ?Confirmed ?Last Taken ?Type cholecalciferol (vitamin D3) 25 25 mcg PO DAILY 08/31/21 12/19/23 12/15/23 History mcg (1,000 unit) tablet (Vitamin D3) gabapentin 600 mg tablet 600 mg PO TID 08/31/21 12/19/23 12/15/23 History hydrochlorothiazide 25 mg tablet 25 mg PO DAILY 08/31/21 12/19/23 12/15/23 History ramipril 10 mg capsule 10 mg PO DAILY 08/31/21 12/19/23 12/15/23 History simvastatin 10 mg tablet 10 mg PO BEDTIME 08/31/21 12/19/23 12/15/23 History blood sugar diagnostic (FreeStyle #10 ea 04/20/22 12/06/23 Unknown History Lite Strips) blood-glucose meter (FreeStyle #1 ea 04/20/22 12/06/23 Unknown History Lite Meter kit) duloxetine 20 mg capsule,delayed 40 mg PO DAILY 04/20/22 12/19/23 12/15/23 History release lancets 28 gauge (FreeStyle #100 ea 04/20/22 12/06/23 Unknown History Lancets) dulaglutide 0.75 mg/0.5 mL 0.75 mg subcut QWEEK 06/18/22 12/06/23 12/02/23 History subcutaneous [facility]or ([facility]) docusate sodium 100 mg capsule 100 mg PO DAILY 12/19/23 Unknown History ondansetron HCl 4 mg tablet 4 mg PO Q12H PRN nausea and 12/19/23 12/19/23 12/15/23 History vomiting pantoprazole 40 mg tablet,delayed 40 mg PO DAILY@0630 12/19/23 12/19/23 12/15/23 History release Exam Height,Weight and Vital Signs: Height 5 ft 6 in Weight 104.326 kg Pertinent Lab Results Pertinent Lab Results: Laboratory Tests 12/13/23 10:38 Blood Type O Positive Antibody Screen NEGATIVE Laboratory Tests 12/13/23 10:51 WBC 8.3 Hgb 14.8 Hct 45.3 Plt Count 321 Sodium 142 Potassium 4.0 Chloride 104 Carbon Dioxide 31 H BUN 15 Creatinine 0.86 Narrative Narrative: EKG 04/2023 Vent. Rate : 075 BPM Atrial Rate : 075 BPM P-R Int : 184 ms QRS Dur : 084 ms QT Int : 394 ms P-R-T Axes : 056 036 057 degrees QTc Int : 439 ms Normal sinus rhythm Normal ECG No previous ECGs available Assessment and Plan Assessment Anesthesia Assessment: Chart Reviewed Documented by User: Jonna Cerda MD 12/19/23 09:49 HPI - Anesthesia Eval Consult details Narrative: 58yo F for EGD, Laparoscopic Sleeve Gastrectomy, possible diaphragmatic hernia repair,possible ventral hernia repair, possible open Anesthesia Pre-Procedure Meds Is the patient on any of the following meds?: GLP1/DPP4 (Trulicity- last dose 12/02/23) PMFSH Active Problems Active Problems: All Active Problems Constipation by delayed colonic transit (Acute) Panic disorder [episodic paroxysmal anxiety] (Acute) Generalized anxiety disorder (Acute) 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) Anxiety disorder (Acute) Obesity (BMI 30-39.9) (Acute) Shortness of breath (Acute) Heart palpitations (Acute) Precordial chest pain (Acute) KIAH on CPAP (Acute) Exertional chest pain (Acute) Tachycardia (Acute) Anxiety (Acute) Fibromyalgia (Acute) Morbid obesity (Acute)BMI 37.1 Sleep apnea (Acute) Migraine with aura, not intractable, without status migrainosus (Acute) Cervicalgia of qqrlhtnz-xzotwxh-wlapv region (Acute) Hyperlipidemia (Acute) HTN (hypertension) (Acute) Past Medical History Medical History Migraines DJD (degenerative joint disease) Non-insulin dependent type 2 diabetes mellitus Panic disorder Left hip pain Left knee pain Depression KIAH on CPAP Hyperlipidemia HTN (hypertension) Family History Family History Father Diabetes Mother Diabetes Alzheimer disease Son Hypertension Son No problems noted. Daughter No problems noted. Daughter Allergy Brother No problems noted. Brother No problems noted. Brother No problems noted. Brother No problems noted. Sister No problems noted. Sister No problems noted. Sister No problems noted. Sister No problems noted. Sister No problems noted. Sister No problems noted. Family history of problems with anesthesia: No Surgical History Surgical History History of ankle surgery Hx of tubal ligation Hx of BSO (bilateral salpingo-oophorectomy) H/O hysterectomy for benign disease Hx of carpal tunnel repair History of Problems with Anesthesia: No Social History Social History Household Members: Spouse Housing: Apartment Are you a primary personal care service provider to a significant other at home: No Do you presently have visiting nurse or other home services: Yes (son is NUCLEAR MONITORING TECHNICIAN) Alcohol intake: former Comment: uses a cane at times Patient Tobacco Use Status: Never used Tobacco Use of substances other than those prescribed or required for medical reasons: No Have you been hit, kicked, punched, or otherwise hurt by someone within the past year? If so, by whom?: No Are you DNR?: No Advance Directives: No Advance Directives Information Provided: Yes Advance Directives on File: No Recently lost weight without trying: No Nutrition Risks: No Nutritional Risk Poor oral hygiene: No Meds Allergies Allergy/AdvReac Type Severity Reaction Status Date / Time omeprazole [From Prilosec] Allergy Mild Rash Verified 12/19/23 06:32 Home Medications ?Medication ?Instructions ?Recorded ?Confirmed ?Last Taken ?Type cholecalciferol (vitamin D3) 25 25 mcg PO DAILY 08/31/21 12/19/23 12/15/23 History mcg (1,000 unit) tablet (Vitamin D3) gabapentin 600 mg tablet 600 mg PO TID 08/31/21 12/19/23 12/15/23 History hydrochlorothiazide 25 mg tablet 25 mg PO DAILY 08/31/21 12/19/23 12/15/23 History ramipril 10 mg capsule 10 mg PO DAILY 08/31/21 12/19/23 12/15/23 History simvastatin 10 mg tablet 10 mg PO BEDTIME 08/31/21 12/19/23 12/15/23 History blood sugar diagnostic (FreeStyle #10 ea 04/20/22 12/06/23 Unknown History Lite Strips) blood-glucose meter (FreeStyle #1 ea 04/20/22 12/06/23 Unknown History Lite Meter kit) duloxetine 20 mg capsule,delayed 40 mg PO DAILY 04/20/22 12/19/23 12/15/23 History release lancets 28 gauge (FreeStyle #100 ea 04/20/22 12/06/23 Unknown History Lancets) dulaglutide 0.75 mg/0.5 mL 0.75 mg subcut QWEEK 06/18/22 12/06/23 12/02/23 History subcutaneous pen injector (Trulicity) docusate sodium 100 mg capsule 100 mg PO DAILY 12/19/23 Unknown History ondansetron HCl 4 mg tablet 4 mg PO Q12H PRN nausea and 12/19/23 12/19/23 12/15/23 History vomiting pantoprazole 40 mg tablet,delayed 40 mg PO DAILY@0630 12/19/23 12/19/23 12/15/23 History release Exam Height,Weight and Vital Signs: Height 5 ft 6 in Weight 104.326 kg Vital Signs Temp Pulse Resp BP Pulse Ox O2 Del Method 12/19/23 06:45 97.7 F 83 16 142/76 H 99 Room Air Pertinent Lab Results Pertinent Lab Results: Laboratory Tests 12/13/23 10:38 Blood Type O Positive Antibody Screen NEGATIVE Laboratory Tests 12/13/23 10:51 WBC 8.3 Hgb 14.8 Hct 45.3 Plt Count 321 Sodium 142 Potassium 4.0 Chloride 104 Carbon Dioxide 31 H BUN 15 Creatinine 0.86 Lab Results 12/13/23 12/19/23 12/19/23 Range/Units 10:38 06:13 07:22 POC Glucose 62 149 H (60-115) mg/dL Blood Type O Positive Antibody Screen NEGATIVE Airway Mallampati Class: III TM Dist: >3cm Neck ROM: Full (But sore) Loose/Missing/Broken Teeth: No (Denies broken, loose, missing teeth) Heart: RRR Lungs: CTAB Assessment and Plan Assessment Anesthesia Assessment: Anesthesia Plan Discussed and Chart Reviewed Final Anesthetic Review Family History of Problems with Anesthesia: No History of Problems with Anesthesia: No NPO: Yes ASA Class: III Final Preanesthetic Review: No Changes in Pt Med Stat, Meds/Allgs Chart Reviewed, Consent Obtained/Reviewed and Anes Risks/Benef Reviewed Patient Risk: Intermediate Procedure Risk: Intermediate Assessment/Block/Sedation in SS: Assess/Block/Sedation-SS Anesthetic Plan Anesthetic Plan: GA Disposition: Standard PACU and Inp. Admit - Standard Bed
[2023-12-19] VITALS (11 sets, daily range): BP systolic 132–168; BP diastolic 60–82; PULSE 60–83; RESP 12–18; TEMP 36.1–36.8; O2SAT 93–99
[2023-12-19] MEDS: Lactated Ringers 1,000 ML 999 ML IV (07:07)
[2023-12-19] MEDS: Aprepitant 32 MG/4.4 ML VIAL IVPUSH (07:08)
[2023-12-19 07:26] LABS: Glucose, Whole Blood 149 mg/dL (60-115)
--- NOTE | 2023-12-19 07:29 | MHC.SHP ---
Pre-Procedural Eval Section A - 24 Hr Update-Section A only Date of Service: 12/19/23 The patient is an INPATIENT: Yes The patient has been examined within 24 hours of the surgical procedure. The History & Physical has been completed within 30 days and I have reviewed it.: No Section B - Complete if H&P > 30 days Chief Complaint: Obesity Relevant Social History: None Present Medications: None Medical History: No relevant PMH History of Previous Operations: No relevant previous surgery Allergies: Allergies Allergy/AdvReac Type Severity Reaction Status Date / Time omeprazole [From Prilosec] Allergy Mild Rash Verified 12/19/23 06:32 Review of Systems Sugical H&P ROS: Negative: Constitution, Cardiovascular, Respiratory, Neurological, Psychiatric, Hem-Onc, Allergic/Immunologic, Gastrointestinal, Genitourinary, Musculoskeletal, Integumentary, Endocrine and Eyes/Ears/Nose/Throat Exam Surgical H&P Exam: Normal: HEENT, Normal: Heart, Normal: Lungs, Normal: Extremities, Normal: Abdomen, Normal: Skin and Normal: Neurological Plan Diagnosis/Plan: Unchanged I have reviewed the history and physical and performed a pertinent physical examination on my patient. No changes have occurred unless specified. Time Spent With Patient Time: Total time managing care of this patient today ____ minutes.
--- NOTE | 2023-12-19 07:57 | PM.OP ---
Brief Operative Note Date of Service: 12/19/23 Pre-op diagnosis: Severe obesity with comorbidities (see below) Post-op diagnosis: same Procedure: INITIAL PATIENT BMI ON PRESENTATION AT OUR OFFICE: 40.3 kg/m2 LAST BMI BEFORE SURGERY: 37.2 kg/m2 COMORBIDITIES: sleep apnea on CPAP, non-insulin dependent diabetes, hypertension, DJD, migraines, depression, anxiety, liver steatosis ?The patient presented to the Weight Management Program with significant obesity that was negatively impacting the patient's comorbidities as listed above.? The program is a phased program with a special focus on preoperative medical weight management to promote substantial weight loss and prepare the patients for the second phase of the program: bariatric surgery. The patient participated in an intensive weekly lifestyle ?intervention and exercise program during which the patient ?has lost between the initial office visit and the last preoperative visit 28.5 lbs, or 11.1% of initial actual body weight. It was deemed appropriate for the patient to now have bariatric surgery. In light of the current Covid-19 pandemic and the well documented strong association of obesity and increased risk of worse outcomes if infected with Covid-19 (REFERENCES:https://pubmed.ncbi.nlm.nih.gov/40766714/,?https://pubmed.ncbi.nlm.nih.gov/81953785/), any delay in undergoing bariatric surgery may lead to the patient's worsening health condition and increased?risk of more severe Covid-19 disease if infected. In addition a recent?study from [facility] published in [employer] Surgery on 07/03/2021 ([email or web address]_[email or web address]) found that, among patients with obesity, substantial weight loss achieved with surgery was associated with improved outcomes of COVID-19 infection. The findings suggest that obesity can be a modifiable risk factor for the severity of COVID-19 infection. In addition, the patient met the BMI-criteria for bariatric surgery based on the BMI on initial presentation. The patient should not be penalized for achieving such weight loss because ?it is not sustainable long-term without surgical intervention and it was achieved in preparation for bariatric surgery ?under my direction and based on my published research ([email or web address]).pdf and?[email or web address].soard.org/article/[email or web address](38)62599-X/pdf) ?that a 10% preoperative weight loss improves long-term weight loss after surgery and reduces perioperative complications.? Insurance carriers such as [facility] have endorsed my recommendations ?and have included in their policies criteria to include a 10% preoperative weight loss requirement. PROCEDURE: Esophago-gastroscopy, laparoscopic sleeve gastrectomy and laparoscopic gastropexy INDICATIONS: This is a 58 year-old female who was electively scheduled for laparoscopic, possibly open sleeve gastrectomy. The risks and complications of the procedure were discussed with the patient in advance, particularly the possibility of ; pulmonary embolism; staple line leak; bleeding; GERD; cardiac, pulmonary, or renal complications; as well as long-term problems such as insufficient weight loss, vitamin deficiency, strictures, or ulcers. The patient understood all the risks, and was in agreement to proceed with surgery. DESCRIPTION OF PROCEDURE: After informed consent was obtained from the patient, the patient was given preoperative antibiotics, and was transferred to the operating room. After successful induction of general anesthesia, pneumatic compression devices were placed on both lower extremities. An upper endoscopy was performed next. The oropharynx and esophagus appeared to be within normal limits. There was no diaphragmatic hernia present consistent with the findings of the preoperative upper GI. The stomach was entered. Then after all fluid and air were suctioned and the stomach was fully decompressed, the scope was withdrawn and secured in the mid esophagus. The patient was then prepped and draped in the usual sterile manner, and abdominal access was established at the right upper quadrant with the Lawrence technique. A 12 mm blunt port was inserted, and the abdomen was insufflated with CO2 to a pressure of 15 mmHg. Under direct visualization, additional ports were placed, specifically two 5 mm Versi-step ports to the left upper quadrant, and a 5 mm Versi-Step port to the right upper quadrant. 1% lidocaine plain was used to infiltrate all port sites as well as all fascia defects. Following that, the patient was placed in a steep reverse Trendelenburg position. An additional 5 mm port was placed to the right flank for the Mediflex retractor that was used to retract the left lobe of the liver. The angle of His was opened with the ultrasonic device the fundus of the stomach from any diaphragmatic and splenic attachments. I then opened the gastrocolic ligament between the transverse colon and the greater curvature of the stomach with the ultrasonic device to enter the lesser sac and facilitate the ligation of the short gastric vessels. I started at a mid-point along the greater curvature and using the Thunderbeat, all short gastric vessels were divided all the way to the angle of His until the left lorrie was completely dissected at its entirety. I then divided the gastro-colic ligament distally to a distance of about 3-4 cm proximal to the pylorus. ? The stomach was then divided transversely with two Endo JACOB-45 purple and four JACOB-60 articulating purple loads using the [employer] stapler and loads. Every effort was made that the gastric sleeve had a tubular shape and an even caliber throughout. Once the sleeve resection was completed, the staple line of the gastric sleeve was reinforced with Hemoclips. The resected stomach was retrieved without difficulty from the Lawrence port. A gastropexy was then performed in order to prevent postoperative GERD and partial gastric volvulus. Several interrupted 2.0 Surgidac sutures were placed between the sleeve's staple line and the previously divided greater omentum and gastro-colic ligament using the Endo-Stitch device. ?An upper endoscopy was performed. There was no narrowing at the GE junction. The scope was easily advanced all the way to the pylorus which was clearly visualized. There was no narrowing anywhere and the sleeve's caliber was even throughout. The sleeve's staple line was inspected and there was no evidence of ischemia, bleeding or dehiscence. At that point the gastroscope was withdrawn from the patient?s mouth while we were decompressing the bowel and the stomach from any remaining air. I looked into the lesser sac to see how the sleeve was situating and it was situating well. There was no bleeding from the staple line, spleen, or short gastric vessels. The Mediflex retractor was removed, and the undersurface of the liver was inspected and there was no bleeding. The patient was placed in supine position. I closed the fascial defect of the 12 mm port site with a figure of eight #1 Polysorb suture. Then 30cc Ropivacaine plain with 10 mg of Dexamethasone were used to infiltrate the fascial closure as well as all skin incisions. A total of 7ml Zynrelef was applied in the Lawrence wound. At this point, the abdomen was deflated, all ports were removed under direct vision, and no bleeding was noted from any of the port sites. The skin incisions were irrigated with saline and were closed with 4-0 absorbable monofilament sutures. Steri-Strips and OpSites were used to cover all incisions. The patient was extubated and was transferred in stable condition to the recovery room for further care. I was present and performed all nava parts of the procedure. Bass was the director of first impressions. There were no residents to assist with this case. Luis Felipe Piper MD, PhD, FACS Surgeon: Matthew Piper MD Anesthesia: GETA, local and other (TAP block and 7ml Zynrelef) Was an Screening Technician used for this Procedure?: No Screening Technician: Antoni Bass Estimated blood loss (mL): 10 IV fluids (mL): 2,300 Urine output (mL): 0 (No Lynn to record output) Pathology: other (Stomach) Condition: stable Disposition: PACU
--- NOTE | 2023-12-19 08:00 | P.PNGS_ITS ---
Subjective Subjective Date of Service: 12/20/23 Interval history: Feels well. Mild incisional pain. She is tolerating phase 1 bariatric diet Physical Exam 2 Vital Signs: Vital Signs: Last Vital Signs Temp 97.7 F 12/19/23 06:45 Pulse 83 12/19/23 06:45 Resp 16 12/19/23 06:45 BP 142/76 H 12/19/23 06:45 Pulse Ox 99 12/19/23 06:45 O2 Del Method Room Air 12/19/23 06:45 BMI result Body Mass Index 37.1 GI: Inspection: Yes normal to inspection, Yes incision (clean, dry and intact) and Yes obesity Palpation (GI): Soft to palpation Extrem: Right lower extremity: normal to inspection (no calf tenderness) L eft lower extremity: normal to inspection (no calf tenderness) Objective Data Active Medications Lactated Ringer's (Lr) 1,000 mls @ 100 mls/hr IVCONT .Q10H YULY Lactated Ringer's (Lr) 1,000 mls @ 999 mls/hr IV .Q1H1M YULY Stop: 12/19/23 08:45 Last Admin: 12/19/23 07:07 Dose: 999 mls/hr Documented By: SCARLETT Dextrose ([email or web address]) 500 mls @ 0 mls/hr IV .Q0M PRN PRN Reason: Per Protocol Labs 12/20/23 05:38 12/20/23 05:38 Labs: Laboratory Results - last 24 hr 12/19/23 07:22 POC Glucose 149 H Procedures Date of Service Date of Service: 12/20/23 Progress Note: A&P Assessment and plan (1) Obesity (BMI 30-39.9): Status: Acute Assessment and Plan: s/p laparoscopic sleeve gastrectomy and gastropexy Doing well Will check am labs and if OK the patient will be discharged home (2) BMI 37.0-37.9, adult: Status: Acute (3) KIAH on CPAP: Status: Acute (4) Anxiety: Status: Acute (5) Fibromyalgia: Status: Acute (6) HTN (hypertension): Status: Acute (7) Hyperlipidemia: Status: Acute (8) Non-insulin dependent type 2 diabetes mellitus: Status: Acute (9) Steatosis, liver: Status: Acute (10) DJD (degenerative joint disease): Status: Acute (11) Migraines: Status: Acute (12) S/P laparoscopic sleeve gastrectomy: Status: Acute Time Spent With Patient Time: Total time managing care of this patient today ____ minutes. Quality Stroke Does the patient have a stroke diagnosis?: No VTE Prior VTE?: No VTE Risk Level:: Surgical - moderate VTE Device Contraindication: N/A - Device Ordered VTE Drug Contraindication: Treatment Not Indicated
[2023-12-19 08:11] LABS: Glucose, Whole Blood 62 mg/dL (60-115)
--- NOTE | 2023-12-19 10:15 | P.DS_ITS ---
DS: Providers Provider Date of Service: 12/20/23 Date of admission: 12/19/23 06:31 Primary care physician: Unknown Physician DS: Diagnosis Discharge Diagnosis (1) Obesity (BMI 30-39.9): Status: Acute (2) BMI 37.0-37.9, adult: Status: Acute (3) KIAH on CPAP: Status: Acute (4) Anxiety: Status: Acute (5) Fibromyalgia: Status: Acute (6) HTN (hypertension): Status: Acute (7) Hyperlipidemia: Status: Acute (8) Non-insulin dependent type 2 diabetes mellitus: Status: Acute (9) Steatosis, liver: Status: Acute (10) DJD (degenerative joint disease): Status: Acute (11) Migraines: Status: Acute DS: Summary Hospital Course Hospital Course: ADMITTING DIAGNOSIS: obesity, kiah, anxiety, fibromyalgia, hld, htn ? DISCHARGE DIAGNOSIS: same, s/p laparoscopic sleeve gastrectomy ? PAST SURGICAL HISTORY: bethany, ankle surgery ? PROCEDURE: upper endoscopy, laparoscopic sleeve gastrectomy and repair of diaphragmatic hernia hernia ? DISCHARGE SUMMARY: ? History of Present Illness: ? The patient is a?58 year-old woman with a BMI of?40.3 kg/m2 and associated co- morbidities as described above. The patient had extensive work-up,lost?27.8 lbs preoperatively and was electively scheduled for laparoscopic, possible open sleeve gastrectomy and gastropexy. Risks and complications of the surgery were discussed with the patient in advance, particularly the possibility of , pulmonary embolism, anastomotic leak, bleeding, bowel injury, GERD, cardiac, renal or pulmonary complications. The patient understood all the risks and was in agreement with the surgical plan. ? Hospital Course: ? The patient underwent an uneventful laparoscopic sleeve gastrectomy with gastropexy on the day of admission. Postoperatively, the patient was transferred to the surgical floor. The patient received IV Acetaminophen and IV dilaudid for pain control. Patient was started on bariatric phase 1 diet POD #0. On postoperative day one, the patient was feeling well without nausea, vomiting, fevers, or tachycardia. The patient had some mild incisional pain and the abdomen was soft. ? On the morning of postoperative day one, the patient was continued on 1 ounce of water or ice every half hour. During the day, the patient did fairly well, having some incisional pain, but able to ambulate adequately and to tolerate liquids well. ? Since the patient is doing well, we decided that the patient was ready to be discharged. The patient was given instructions to follow-up with me next week and to call my office for any fever over 101, persistent abdominal pain, nausea, vomiting, GERD, symptoms of DVT such as calf tenderness, or leg swelling, or pulmonary embolism such as chest pain or shortness of breath. The patient was also instructed to drink 40-60 ounces of liquids per day using the 1-ounce cups. The patient had been given prescriptions for Tylenol for pain, Zofran prn for nausea, and pantoprazole and carafate previously. The patient was encouraged to ambulate and use the incentive spirometer. The patient was allowed to shower, but no baths, and encouraged to stay active at home. All of these instructions were given to the patient personally. All questions were answered and the patient understood all instructions, the instructions were also given to the patient in print. Time Attestation Total time managing care of this patient today: 25 mintues. Discharge Coordination Time (in mins): 25 Quality: Safe Use of Opioids Does Pt have an Active Cancer Diagnosis on the Problem List?: No Quality: Stroke Does the patient have a stroke diagnosis?: No Physical Exam Vital Signs: Vital Signs: Last Vital Signs Temp 97.7 F 12/19/23 06:45 Pulse 83 12/19/23 06:45 Resp 16 12/19/23 06:45 BP 142/76 H 12/19/23 06:45 Pulse Ox 99 12/19/23 06:45 O2 Del Method Room Air 12/19/23 06:45 BMI result Body Mass Index 37.1 DS: Data Data Completed and Pending Pending studies at discharge: Pending at discharge 12/19/23 09:44 Surgical [PTH] Routine Labs on day of discharge: Laboratory Results - last 24 hr 12/19/23 12/19/23 06:13 07:22 POC Glucose 62 149 H Discharge Plan Discharge Anticipated Discharge Date/Time: 12/20/23 10:00 Patient Disposition: Home, Self-Care Discharge Diagnosis: s/p laparoscopic sleeve gastrectomy Referrals: Physician,Unknown J [Primary Care Provider] - 1 Week Discharge Medications: Continued amitriptyline 10 mg tablet 30 mg PO BEDTIME 90 Days Qty: 270 1RF docusate sodium 100 mg capsule 100 mg PO DAILY ondansetron HCl 4 mg tablet 4 mg PO Q12H PRN (Reason: nausea and vomiting) Rx Instructions: Only take one every 12 hours as needed if you have nausea pantoprazole 40 mg tablet,delayed release (DR/EC) 40 mg PO DAILY@0630 simvastatin 10 mg tablet 10 mg PO BEDTIME duloxetine 20 mg capsule,delayed release(DR/EC) 40 mg PO DAILY rizatriptan 10 mg tablet 10 mg PO Q2H PRN (Reason: migraine headache) 30 Days Qty: 12 1RF Rx Instructions: 1 tab at onset of migraine, may repeat in 2 hours. Do not exceed 2 tabs/day. 4 tabs/week. sucralfate 100 mg/mL suspension 10 ml PO BID Qty: 600 2RF Held ramipril 10 mg capsule 10 mg PO DAILY Hold Instructions: Resume on 12/21/23. Check your blood pressure every morning as soon as you wake up and send it to Dr. Piper. Do no take the blood pressure medication if the blood pressure is below 120/70. Wait every day to hear back from Dr. Piper before you take the medication. gabapentin 600 mg tablet 600 mg PO TID Hold Instructions: until discussed with Dr Piper hydrochlorothiazide 25 mg tablet 25 mg PO DAILY Hold Instructions: Resume on 12/21/23. Check your blood pressure every morning as soon as you wake up and send it to Dr. Piper. Do no take the blood pressure medication if the blood pressure is below 120/70. Wait every day to hear back from Dr. Piper before you take the medication. Trulicity 0.75 mg/0.5 mL pen injector 0.75 mg subcut QWEEK Hold Instructions: until discussed with Dr Piper Discontinued thiamine HCl (vitamin B1) 100 mg tablet 100 mg PO DAILY 90 Days Qty: 90 0RF cholecalciferol (vitamin D3) [Vitamin D3] 25 mcg (1,000 unit) tablet 25 mcg PO DAILY riboflavin (vitamin B2) [Vitamin B-2] 100 mg tablet 200 mg PO BID 90 Days Qty: 360 1RF magnesium oxide 400 mg (241.3 mg magnesium) tablet 400 mg PO DAILY 90 Days Qty: 90 1RF No Action (DME) lancets [FreeStyle Lancets] 28 gauge misc See Rx Instructions .ROUTE DAILY Qty: 100 Rx Instructions: As directed (DME) blood-glucose meter [FreeStyle Lite Meter] Kit See Rx Instructions .ROUTE .MEDSUPPLY Qty: 1 Rx Instructions: As directed (DME) FreeStyle Lite Strips Strip See Rx Instructions .ROUTE .MEDSUPPLY Qty: 10 Rx Instructions: As directed Discharge Orders: Discharge Order (Routine); Ordered 12/20/23 Ordered By: Matthew Piper Activity on Discharge: No heavy lifting Stand Alone Forms: Patient Portal Discharge page Print Language: Brazilian Care Plan Goals: weight loss Health Concerns: obesity Plan of Treatment: No tub baths, sex or returning to work until discussed at first post op appointment. No exercise, alcohol, tobacco or illegal drug use. Continue to use incentive spirometer hourly while awake. Walk in home for 5- 10 minutes every 2 hours during the first week. Follow all instructions in the bariatric handbook and call with any questions.Discharge Instructions 1. Please call your doctor or come back to the emergency room should any new symptoms arise. 2. You will receive a courtesy call from [facility] 24-48 hours after discharge. 3. Activity: abstain from alcohol, practice limited stair climbing, no bending, no driving, no exercise, no illicit substances, no lifting, no sex, no tub bath, no work. 4. Diet: continue as discussed with Dr. Piper. 5. Dressing Change/Wound Care: Your incision is covered by clear bandages and guaze underneath. If the area is tender, you may apply an ice pack for short intervals (no more than 20 minutes on, followed by at least 20 minutes off). Do not apply heat. Do not use creams, lotions, or topical antibiotics unless instructed to do so by your surgeon. These can cause infection or allergic reaction. 6. Call your doctor if: - Your temperature exceeds 101.5 F - You experience excessive pain or swelling - You have an unexpected reaction to medication - You have excessive bleeding - You experience continued vomiting/nausea - Your incision begins to separate - Your incision shows signs of infection such as increased redness, swelling, excessive pain, heat, or drainage (light blood or clear fluid is normal) 7. General instructions: No lifting greater than 5 lbs for 1 week and not more than 20lbs the next 3?weeks. No driving until seen at the office in 5-7 days after surgery. If you do not move your bowels in the next 2 days, please tell?Dr. Piper. Please walk around your home every hour or two to prevent blood clots from forming in your legs. You do not need to wake from sleeping to walk. Please sleep in a bed or couch to prevent kinking at the hips and knees. Please take your incentive spirometer (your lung sole stitcher hand) home with you and use it for the next few days to prevent pneumonia. You may shower, no hot tubs, baths or swimming pools.?Please follow the post op diet instructions you are?given by Dr Piper? and text me daily at 5-6pm for an update.?If you have any issues or concerns or questions please communicate this to him via text.? The Celebrate shakes have all of the bariatric vitamins you need if you consume these shakes. If you are drinking other protein shakes, you will need to purchase the Celebrate multivitamins and calcium that are available in the hospital gift shop on the first floor of the [facility].??Do not take anyt lauren without first discussing with Dr Piper. Please make sure you are consuming at least 40 ounces of fluids per day starting the?day AFTER your discharge from the hospital. Always drink 1-2 ml per minute using the 5ml?syringe. If you drink faster you may experience?bloating,?gas pain, burping, nausea or heartburn. In that case please slow down your pace and use the syringe to?understand better the?proper?pace and volume of drinking. Do not hesitate to contact the office with any questions at . The patient's medical history has been reviewed and they are considered low risk for post op DVT and therefore DVT prophylaxis is not considered necessary. Travel after surgery was reviewed. The patient has not disclosed any travel plans during the first 30 days after surgery and they have been advised that within the first 30 days after surgery any bus, plane, train or car travel over 2 hours in duration is contraindicated due to the possibility of developing blood clots from immobility. Any travel, needs to include periods of ambulation of 10 minutes in duration every 2 hours.? The patient was instructed to discuss any plans for travel during this period with their bariatric surgeon. Assessment: stable s/p laparoscopic sleeve gastrectomy Discharge Date/Time: 12/20/23 09:54
--- NOTE | 2023-12-19 10:26 | PHA.MEDREC ---
Pharmacy Consult ? Medication Reconciliation Pharmacy has completed the medication reconciliation. Reviewed med rec done by nursing (Sabrina).
[2023-12-19 10:46] LABS: Hematocrit 41.4 % (37.0-47.0); Hemoglobin 13.9 g/dl (12.0-16.0)
[2023-12-19 10:51] LABS: Anion Gap 13 (12-20); Blood Urea Nitrogen 15 mg/dL (9-16); Calcium 9.6 mg/dL (8.4-10.2); Carbon Dioxide 23 mmol/L (22-29); Chloride 105 mmol/L (96-108); Creatinine Clr Calc Pharmacy 91.2; Estimated Glomerular Filt Rate > 60; Glucose Random 143 mg/dL (60-115); Potassium 3.6 mmol/L (3.3-5.1); Sodium 137 mmol/L (135-145)
[2023-12-19] MEDS: Lactated Ringers 1,000 ML 100 ML IVCONT ×2 (11:47→21:55)
[2023-12-19 11:55] LABS: Glucose, Whole Blood 124 mg/dL (60-115)
[2023-12-19] MEDS: HYDROmorphone HCl 0.5 MG/0.5 ML SYRINGE 0.25 MG IVPUSH ×2 (12:01→18:54)
[2023-12-19] MEDS: cefoTEtan disodium 2 GM in 0.9 % Sodium Chloride 50 ML IV (13:07)
[2023-12-19] MEDS: Acetaminophen 1,000 MG/100 ML PIGGYBACK 16.7 MG IV ×2 (15:16→20:59)
[2023-12-19 16:26] LABS: Glucose, Whole Blood 125 mg/dL (60-115)
[2023-12-19] MEDS: 0.9 % Sodium Chloride Flush 3 ML SYRINGE IVFLUSH (18:54)
[2023-12-19 20:03] LABS: Glucose, Whole Blood 128 mg/dL (60-115)
[2023-12-19] MEDS: Amitriptyline HCl 10 MG TABLET 30 MG PO (20:59)
[2023-12-19] MEDS: Famotidine/PF 20 MG/2 ML VIAL IVPUSH (20:59)
[2023-12-20] VITALS: BP 123/60; PULSE 66; RESP 16; TEMP 36.3; O2SAT 99
[2023-12-20] MEDS: Acetaminophen 1,000 MG/100 ML PIGGYBACK 16.7 MG IV (02:53)
[2023-12-20 04:00] VITALS: BP 133/60; PULSE 67; RESP 16; TEMP 36.3; O2SAT 99
[2023-12-20 06:14] LABS: MANUAL DIFF FLAG NO
[2023-12-20 06:27] LABS: Basophils Percent Auto 0.1 % (0-2); Hematocrit 38.7 % (37.0-47.0); Imm Gran Pct Auto 0.6 % (0.0-0.4); Lymphocytes Absolute Auto 1.5 X10*3/uL (1.2-4.9); Lymphocytes Percent Auto 8.5 % (20-40); Mean Corpuscular HGB Conc 33.6 g/dl (31.0-35.0); Mean Corpuscular Hemoglobin 28.6 pg (27.0-33.0); Mean Corpuscular Volume 85.1 fL (80.0-98.0); Mean Platelet Volume 11.2 fL (9.4-12.3); Monocytes Absolute Auto 1.4 X10*3/uL (0.1-1.2); Monocytes Percent Auto 7.8 % (2-11); Neutrophils Absolute Auto 14.5 x10*3/uL (2.0-8.3); Platelet Count 243 X10*3/uL (160-400); Red Blood Count 4.55 X10*6/uL (4.20-5.50); Red Cell Distribution Width 13.2 % (11.0-16.0); White Blood Count 17.5 X10*3/uL (4.8-10.8)
[2023-12-20 06:47] LABS: Anion Gap 11 (12-20); Blood Urea Nitrogen 10 mg/dL (9-16); Calcium 9.5 mg/dL (8.4-10.2); Carbon Dioxide 27 mmol/L (22-29); Chloride 105 mmol/L (96-108); Creatinine Clr Calc Pharmacy 93.5; Estimated Glomerular Filt Rate > 60; Glucose Random 108 mg/dL (60-115); Potassium 4.4 mmol/L (3.3-5.1); Sodium 139 mmol/L (135-145)
[2023-12-20] MEDS: DULoxetine HCl 20 MG CAPSULE.DR 40 MG PO (07:15)
[2023-12-20] MEDS: 0.9 % Sodium Chloride Flush 3 ML SYRINGE IVFLUSH (07:15)
[2023-12-20] MEDS: Famotidine/PF 20 MG/2 ML VIAL IVPUSH (07:16)
[2023-12-20 07:29] LABS: Glucose, Whole Blood 100 mg/dL (60-115)
[2023-12-20 07:45] VITALS: BP 140/73; PULSE 72; RESP 18; TEMP 36.4; O2SAT 99
--- NOTE | 2023-12-20 18:02 | HO.POSTANES ---
Post Anesthesia Evaluation Post Anesthesia Evaluation Date of Service: 12/20/23 Vital Signs: Vital Signs Temp Pulse Resp BP Pulse Ox O2 Del Method 12/20/23 07:45 97.6 F 72 18 140/73 H 99 Room Air Anesthesia: General Endotracheal-GETA Mental Status: Awake Pain Control: Satisfactory Nausea/Vomiting: None Hydration: Adequate Anesthesia-Related Issues: No Anes. Related Issues
== END 2023-12-20 09:54 | disposition home or self-care (01) | DRG 621 ==
LOC: HO.SSSA 10:18 → HO.S3 10:26
PROVIDERS: Physician Assistant Surgical; Admitting Provider Surgery; Visit Provider Surgery
PROC: 0DB64Z3 Excision of Stomach, Percutaneous Endoscopic Approach, Vertical (ICD-10-PCS; CPT 43845; principal; 2023-12-19 07:30)
DX: E66.01 Morbid (severe) obesity due to excess calories (principal); G47.33 Obstructive sleep apnea (adult) (pediatric); Z68.37 Body mass index [BMI] 37.0-37.9, adult; E11.9 Type 2 diabetes mellitus without complications; E78.5 Hyperlipidemia, unspecified; M79.7 Fibromyalgia; I10 Essential (primary) hypertension; M19.90 Unspecified osteoarthritis, unspecified site; G43.909 Migraine, unspecified, not intractable, without status migrainosus; F41.9 Anxiety disorder, unspecified; F32.A Depression, unspecified; K76.0 Fatty (change of) liver, not elsewhere classified; Z79.899 Other long term (current) drug therapy
CPT/HCPCS: 36415; 80048; 82947; 85014; 85018; 85025; 86850; 86900; 86901; 88307; 88342; A4649; C9088; C9145; J0131; J0690; J1100; J1170; J2250; J2371; J2405; J2704; J2795; J3010; J7120

== ENCOUNTER → 2023-12-19 06:31 | Outpatient (BNV) | payer OTHER, SELFPAY | PROVIDERS: Admitting Provider Surgery; Visit Provider Surgery | DX: E66.9 Obesity, unspecified (principal); Z68.37 Body mass index [BMI] 37.0-37.9, adult; Z98.84 Bariatric surgery status | CPT/HCPCS: 43659; 43775; 99024 ==

== ENCOUNTER 2023-12-24 09:50 | Outpatient (AMB) | payer OTHER, SELFPAY ==
--- NOTE | 2023-12-24 10:10 | A.OFFVIS_ITS ---
VS Expanded 12/24/23 10:54 BP 121/58 L Blood Pressure Location Rt brachial Blood Pressure Position Sitting Pulse 86 Pulse Source Pulse Oximeter Temp 97.7 F Temperature Source Temporal Artery Scan Pulse Oximetry 100 Oxygen Delivery Method Room Air Height 5 ft 7 in Weight 222 lb 3.2 oz BMI 34.8 Body Fat % 44.4 Body Fat Mass 98.6 Fat Free Mass 123.4 Visceral Fat Rating 13.0 Body Water % 39.4 Body Water Mass 87.6 Muscle Mass/Score 117.2 Basal Metabolic Rate/Score 1,718 Intake Visit Reasons: (OV) PO LSG 12/19/23 Allergies omeprazole [From Prilosec] Allergy (Mild, Verified 12/24/23 10:21) Rash HPI Comments Details: 58-year-old female returns to the office today in follow-up. She is 5 days status post sleeve gastrectomy performed on 12/19/2023. She is tolerating 3 celebrate 4 in 1 shakes with 1 scoop each and approximately 40-50 oz of fluids per day. She moved her bowels. She did have a couple episodes of epigastric discomfort if she drank too much or too quickly, this was discussed and she was educated on volume and pace. [facility] Medical History Migraines DJD (degenerative joint disease) Non-insulin dependent type 2 diabetes mellitus Panic disorder Left hip pain Left knee pain Depression KIAH on CPAP Hyperlipidemia HTN (hypertension) Surgical History History of ankle surgery Hx of tubal ligation Hx of BSO (bilateral salpingo-oophorectomy) H/O hysterectomy for benign disease Hx of carpal tunnel repair Family History Father Diabetes Mother Diabetes Alzheimer disease Son Hypertension Son No problems noted. Daughter No problems noted. Daughter Allergy Brother No problems noted. Brother No problems noted. Brother No problems noted. Brother No problems noted. Sister No problems noted. Sister No problems noted. Sister No problems noted. Sister No problems noted. Sister No problems noted. Sister No problems noted. Social History Household Members: None Housing: Apartment Are you a primary manager critical care unit to a significant other at home: No Do you presently have visiting nurse or other home services: No Alcohol intake: former Comment: uses a cane at times Patient Tobacco Use Status: Never used Tobacco Physical Exam GI Inspection: Yes incision (Clean, dry, intact.) Assessment & Plan Assessment & Plan (1) S/P laparoscopic sleeve gastrectomy: Code(s): Z98.84 - Bariatric surgery status Category: Surgical Plan: POD 5 s/p LSG on 12/19/[address] Piper Weight loss prior to surgery was 27.8 pounds or 10.8 % TBWL. Original weight on 03/18/2023 was 257.2 pounds and op weight was 229.4 pounds. Be sure to text Dr Piper exactly 1 week after surgery your weight from your home scale so he can adjust your meal plan. Continue meal plan until f/u adeal Corrales in 2 weeks May shower, no submersion in bath for another week Continue abdominal binder with activity and exercise for the next 2 weeks. Exercise prior to surgery was stationary bike and walking and may resume No abdominal exercises for 6 weeks post operatively Will be emailed link to post op video for review Reminded of the pace of drinking, 2 mL per minute, 1 oz/15 min. She has no longer requiring Trulicity with blood sugars around 100. She has no longer taking her ramipril or hydrochlorothiazide with blood pressure readings 120s over 70s
[2023-12-24 10:54] VITALS: BP 121/58; PULSE 86; TEMP 36.5; O2SAT 100; BMI 34.8
== END 2023-12-24 10:42 | disposition home or self-care (01) ==
PROVIDERS: Visit Provider Physician Assistant Surgical
DX: Z98.84 Bariatric surgery status (principal)
CPT/HCPCS: 99024

== ENCOUNTER → 2023-12-24 09:50 | Outpatient (BNVA) | payer OTHER, SELFPAY | PROVIDERS: Visit Provider Physician Assistant Surgical | DX: Z98.84 Bariatric surgery status (principal) | CPT/HCPCS: 99212 ==

== ENCOUNTER 2023-12-30 10:15 | Outpatient (REF) | payer OTHER, SELFPAY ==
[2023-12-30 11:35] LABS: MANUAL DIFF FLAG NO
[2023-12-30 12:39] LABS: Basophils Absolute Auto 0.1 X10*3/uL (0.0-0.2); Basophils Percent Auto 0.4 % (0-2); Eosinophils Absolute Auto 0.4 X10*3/uL (0.0-0.4); Eosinophils Percent Auto 3.1 % (0-4); Hematocrit 36.4 % (37.0-47.0); Hemoglobin 12.3 g/dl (12.0-16.0); Imm Gran Abs Auto 0.04 X10*3/uL (0.00-0.03); Imm Gran Pct Auto 0.4 % (0.0-0.4); Lymphocytes Absolute Auto 1.7 X10*3/uL (1.2-4.9); Lymphocytes Percent Auto 15.6 % (20-40); Mean Corpuscular HGB Conc 33.8 g/dl (31.0-35.0); Mean Corpuscular Hemoglobin 28.8 pg (27.0-33.0); Mean Corpuscular Volume 85.2 fL (80.0-98.0); Mean Platelet Volume 10.6 fL (9.4-12.3); Monocytes Absolute Auto 0.9 X10*3/uL (0.1-1.2); Monocytes Percent Auto 8.3 % (2-11); Neutrophils Absolute Auto 8.1 x10*3/uL (2.0-8.3); Neutrophils Percent Auto 72.2 % (45-73); Platelet Count 350 X10*3/uL (160-400); Red Blood Count 4.27 X10*6/uL (4.20-5.50); Red Cell Distribution Width 13.2 % (11.0-16.0); White Blood Count 11.2 X10*3/uL (4.8-10.8)
== END 2023-12-30 10:16 | disposition home or self-care (01) ==
LOC: HO.LAB 10:15
PROVIDERS: Visit Provider Physician Assistant Surgical
DX: R10.30 Lower abdominal pain, unspecified (principal); Z98.84 Bariatric surgery status
CPT/HCPCS: 36415; 85025; 99212

== ENCOUNTER 2023-12-30 10:15 | Outpatient (AMB) | payer OTHER, SELFPAY ==
[2023-12-30 10:18] VITALS: BP 129/55; PULSE 81; TEMP 35.9; O2SAT 98
--- NOTE | 2023-12-30 10:18 | MHC.OFFVISWM ---
VS Expanded 12/30/23 10:18 BP 129/55 L Blood Pressure Location Rt brachial Blood Pressure Position Sitting Pulse 81 Pulse Source Pulse Oximeter Temp 96.7 F L Temperature Source Temporal Artery Scan Pulse Oximetry 98 Oxygen Delivery Method Room Air Intake Visit Reasons: (OV) PO LSG 12/19/23 Allergies omeprazole [From Prilosec] Allergy (Mild, Verified 12/24/23 10:21) Rash HPI Comments Details: Patient is a 58-year-old female who comes to the office today upon our request. She went to the emergency room at [facility] over the weekend for complaints of lower abdominal pain. CT scan was concerning for a 5 x 8 cm hematoma overlying the pancreas as well as some free fluid in the lower pelvis. As she had improved, she was able to be discharged home from the emergency room. She additionally reported some dysuria although per report, the urinalysis was negative for infection. She states that her lower abdominal pain improved on Saturday and she was tolerating her shakes without difficulty. She has no complaints of pain today. She has no complaints of dysuria. She has no fevers. [facility] Medical History Migraines DJD (degenerative joint disease) Non-insulin dependent type 2 diabetes mellitus Panic disorder Left hip pain Left knee pain Depression KIAH on CPAP Hyperlipidemia HTN (hypertension) Surgical History History of ankle surgery Hx of tubal ligation Hx of BSO (bilateral salpingo-oophorectomy) H/O hysterectomy for benign disease Hx of carpal tunnel repair Family History Father Diabetes Mother Diabetes Alzheimer disease Son Hypertension Son No problems noted. Daughter No problems noted. Daughter Allergy Brother No problems noted. Brother No problems noted. Brother No problems noted. Brother No problems noted. Sister No problems noted. Sister No problems noted. Sister No problems noted. Sister No problems noted. Sister No problems noted. Sister No problems noted. Social History Household Members: None Housing: Apartment Are you a primary hospice care sales consultant to a significant other at home: No Do you presently have visiting nurse or other home services: No Alcohol intake: former Comment: uses a cane at times Patient Tobacco Use Status: Never used Tobacco Physical Exam Vital Signs: Last Vital Signs Temp 96.7 F L 12/30/23 10:18 Pulse 81 12/30/23 10:18 BP 129/55 L 12/30/23 10:18 Pulse Ox 98 12/30/23 10:18 Oxygen Delivery Method Room Air 12/30/23 10:18 GI Inspection: Yes incision (c/d/i) Palpation (GI): Soft to palpation and nontender Assessment & Plan Assessment & Plan (1) Abdominal pain: Code(s): R10.9 - Unspecified abdominal pain Category: Medical Plan: CT scan with collection overlying the pancreas, likely hematoma, we will upload the CD that she brought with her into our record. Check CBC, continue with her shakes. She is now currently completely asymptomatic and no further intervention at this point is warranted. We will consider repeat CT scan in a few weeks. Orders: Orders Complete Blood Count Auto Diff Today R10.9 - Unspecified abdominal pain, Z98.84 - Bariatric surgery status
== END 2023-12-30 10:53 | disposition home or self-care (01) ==
LOC: HO.HBS 10:15
PROVIDERS: Visit Provider Physician Assistant Surgical
DX: R10.9 Unspecified abdominal pain (principal)
CPT/HCPCS: 99024

== ENCOUNTER 2024-01-07 11:31 | Outpatient (AMB) | payer OTHER, SELFPAY ==
--- NOTE | 2024-01-07 12:43 | MHC.OFFVISWM ---
VS Expanded 01/07/24 13:46 BP 125/55 L Blood Pressure Location Rt brachial Blood Pressure Position Sitting Pulse 84 Pulse Source Pulse Oximeter Temp 97.0 F Temperature Source Temporal Artery Scan Pulse Oximetry 99 Oxygen Delivery Method Room Air Height 5 ft 7 in Weight 217 lb 6.4 oz BMI 34.0 Body Fat % 44.1 Body Fat Mass 96.0 Fat Free Mass 121.4 Visceral Fat Rating 12.0 Body Water % 39.7 Body Water Mass 86.2 Muscle Mass/Score 115.4 Basal Metabolic Rate/Score 1,689 Intake Visit Reasons: (OV) PO LSG 12/19/23 Allergies omeprazole [From Prilosec] Allergy (Mild, Verified 01/07/24 13:39) Rash Medication List - Last Reconciled 01/07/24 by BRAULIO Miles amitriptyline 30 mg (3 x 10 mg) PO BEDTIME 90 days blood sugar diagnostic (FreeStyle Lite Strips) As directed blood-glucose meter (FreeStyle Lite Meter kit) As directed docusate sodium 100 mg PO DAILY dulaglutide (Trulicity) 0.75 mg subcut QWEEK duloxetine 40 mg PO DAILY gabapentin 600 mg PO TID hydrochlorothiazide 25 mg PO DAILY lancets (FreeStyle Lancets) As directed ondansetron HCl 4 mg PO Q12H PRN pantoprazole 40 mg PO DAILY@0630 ramipril 10 mg PO DAILY rizatriptan 10 mg PO Q2H PRN 30 days simvastatin 10 mg PO BEDTIME sucralfate 10 mL PO BID HPI Comments Details: Pt is 3w s/p LSG 12/19/2023. Weight loss of 4.8lbs since last OV. No N/V. Had one very brief episode of discomfort with movement yesterday, none currently. No fevers at home. BP and BS well controlled with meds on hold. Previous ER visit CT scan was concerning for a 5 x 8 cm hematoma overlying the pancreas as well as some free fluid in the lower pelvis. Current meal plan: 2 shakes with 8oz UAM and Celebrate 4:1 2 scoops 1 shake with half scoop Premier 1 bar Exercise: has been walking 45min-1hour had tried using the bike, but was uncomfortable [facility] Medical History Migraines DJD (degenerative joint disease) Non-insulin dependent type 2 diabetes mellitus Panic disorder Left hip pain Left knee pain Depression KIAH on CPAP Hyperlipidemia HTN (hypertension) Surgical History History of ankle surgery Hx of tubal ligation Hx of BSO (bilateral salpingo-oophorectomy) H/O hysterectomy for benign disease Hx of carpal tunnel repair Family History Father Diabetes Mother Diabetes Alzheimer disease Son Hypertension Son No problems noted. Daughter No problems noted. Daughter Allergy Brother No problems noted. Brother No problems noted. Brother No problems noted. Brother No problems noted. Sister No problems noted. Sister No problems noted. Sister No problems noted. Sister No problems noted. Sister No problems noted. Sister No problems noted. Social History Household Members: None Housing: Apartment Are you a primary long term care phlebotomist to a significant other at home: No Do you presently have visiting nurse or other home services: No Alcohol intake: former Comment: uses a cane at times Patient Tobacco Use Status: Never used Tobacco Physical Exam Vital Signs: Last Vital Signs Temp 97.0 F 01/07/24 13:46 Pulse 84 01/07/24 13:46 BP 125/55 L 01/07/24 13:46 Pulse Ox 99 01/07/24 13:46 Oxygen Delivery Method Room Air 01/07/24 13:46 BMI result Body Mass Index 34.0 Const General: cooperative, comfortable and no acute distress Orientation/consciousness: patient oriented x3 GI Other: soft, nondistended, incisions healing well, no hernia, no masses, mild tenderness in epigastric region without rebound or guarding Neuro General: patient oriented x3 Assessment & Plan Assessment & Plan (1) S/P laparoscopic sleeve gastrectomy: Code(s): Z98.84 - Bariatric surgery status Category: Surgical (2) Abdominal pain: Code(s): R10.9 - Unspecified abdominal pain Category: Medical (3) Obesity (BMI 30-39.9): Code(s): E66.9 - Obesity, unspecified Category: Medical Plan Will discuss need for repeat CT scan with Dr. Parker. Currently no evidence of infection or ongoing bleeding or worsening hematoma. Pt requests translation to Kiswahili for meal plan instructions. Will continue to text Dr Parker on with weight measurements. RTC 2 weeks. Patient is obese and is not considered stable at this time. I spent a total of 30 minutes reviewing/updating records, examining the patient and counseling the patient on weight management as detailed above.
[2024-01-07 13:46] VITALS: BP 125/55; PULSE 84; TEMP 36.1; O2SAT 99; BMI 34.0
== END 2024-01-07 14:09 | disposition home or self-care (01) ==
PROVIDERS: Visit Provider Physician Assistant Surgical
DX: R10.9 Unspecified abdominal pain (principal); E66.9 Obesity, unspecified; Z68.34 Body mass index [BMI] 34.0-34.9, adult; Z98.84 Bariatric surgery status
CPT/HCPCS: 99024

== ENCOUNTER → 2024-01-07 11:31 | Outpatient (BNVA) | payer OTHER, SELFPAY | PROVIDERS: Visit Provider Physician Assistant Surgical | DX: E66.9 Obesity, unspecified (principal); R10.9 Unspecified abdominal pain; Z98.84 Bariatric surgery status; Z68.34 Body mass index [BMI] 34.0-34.9, adult | CPT/HCPCS: 99212 ==

== ENCOUNTER → 2024-01-22 11:17 | Outpatient (BNVA) | payer OTHER, SELFPAY | PROVIDERS: Visit Provider Physician Assistant Surgical | DX: E66.9 Obesity, unspecified (principal); Z71.3 Dietary counseling and surveillance; Z48.815 Encounter for surgical aftercare following surgery on the digestive system; Z98.84 Bariatric surgery status; Z68.33 Body mass index [BMI] 33.0-33.9, adult | CPT/HCPCS: 99212 ==

== ENCOUNTER 2024-01-22 11:28 | Outpatient (AMB) | payer OTHER, SELFPAY ==
--- NOTE | 2024-01-22 11:30 | MHC.OFFVISWM ---
VS Expanded 01/22/24 11:42 BP 124/58 L Blood Pressure Location Rt brachial Blood Pressure Position Sitting Pulse 76 Pulse Source Pulse Oximeter Temp 96.6 F L Temperature Source Tympanic Pulse Oximetry 97 Oxygen Delivery Method Room Air Height 5 ft 7 in Weight 213 lb 12.8 oz BMI 33.5 Body Fat % 43.4 Body Fat Mass 92.8 Fat Free Mass 120.8 Visceral Fat Rating 12.0 Body Water % 40.1 Body Water Mass 85.8 Muscle Mass/Score 114.6 Basal Metabolic Rate/Score 1,675 Intake Visit Reasons: (OV) PO LSG 12/19/23 Allergies omeprazole [From Prilosec] Allergy (Mild, Verified 01/22/24 11:31) Rash HPI Comments Details: This?a?58?yo 0 who is s/p LSG without hiatal hernia repair on?12/19/23. Presents for 1 month post op visit. Weight today is 213.8 pounds, with a BMI of 33.5. There has been a [] pound weight loss,(initial weight 257.2 pounds) since starting the program on 03/18/23 reflecting a []% total body weight loss and a weight loss of [] pounds since surgery (operative weight 229.4 pounds) reflecting a []% TBWL since surgery. No complaints of nausea, emesis, abdominal pain or reflux. Reports infrequent but normal bowel movements every [] days and uses stool softeners regularly. Original weight on 03/18/2023 was 257.2 pounds and op weight was 229.4 pounds. She had an episode of abdominal pain for which she went to [facility] approximately December 27. CT scan there was concerning for 5 x 8 cm hematoma. She was seen in follow-up in the office in early January and abdominal pain was better. She states that at this time she has no abdominal pain at all. Present meal plan includes: Celebrate 4 in 1, 2 scoops in 8 oz of almond milk, 8-10, 11-1, Premier protein 1/2 scoop, 2-4 ZP bar 5-8 ? Exercise routine includes: walking outside 1-2 hours, not tracking calories, daily stationary bike, 300-350 calories, 3-4 days per week [facility] Medical History (Updated 12/30/23 @ 10:48 by BRAULIO Wong) Shortness of breath Heart palpitations Precordial chest pain Exertional chest pain Tachycardia Morbid obesity Migraines DJD (degenerative joint disease) Non-insulin dependent type 2 diabetes mellitus Panic disorder Left hip pain Left knee pain Depression KIAH on CPAP Hyperlipidemia HTN (hypertension) Surgical History (Updated 01/22/24 @ 11:39 by Apurva Lopez CUSTOMER CARE REPRESENTATIVE) Hx of laparoscopic partial gastrectomy History of ankle surgery Hx of tubal ligation Hx of BSO (bilateral salpingo-oophorectomy) H/O hysterectomy for benign disease Hx of carpal tunnel repair Family History Father Diabetes Mother Diabetes Alzheimer disease Son Hypertension Son No problems noted. Daughter No problems noted. Daughter Allergy Brother No problems noted. Brother No problems noted. Brother No problems noted. Brother No problems noted. Sister No problems noted. Sister No problems noted. Sister No problems noted. Sister No problems noted. Sister No problems noted. Sister No problems noted. Social History (Reviewed 01/22/24 @ 11:39 by Apurva Lopez [facility]) Household Members: None Housing: Apartment Are you a primary care administrative tech to a significant other at home: No Do you presently have visiting nurse or other home services: No Alcohol intake: former Comment: uses a cane at times Patient Tobacco Use Status: Never used Tobacco Physical Exam Vital Signs: Last Vital Signs Temp 96.6 F L 01/22/24 11:42 Pulse 76 01/22/24 11:42 BP 124/58 L 01/22/24 11:42 Pulse Ox 97 01/22/24 11:42 Oxygen Delivery Method Room Air 01/22/24 11:42 BMI result Body Mass Index 33.5 GI Inspection: Yes incision (Clean, dry, intact.) Assessment & Plan Assessment & Plan (1) S/P laparoscopic sleeve gastrectomy: Code(s): Z98.84 - Bariatric surgery status Category: Surgical Plan: Encouraged to increase exercise. Continue current meal plan. We will have her return to the office in 3-4 weeks.
[2024-01-22 11:42] VITALS: BP 124/58; PULSE 76; TEMP 35.9; O2SAT 97; BMI 33.5
== END 2024-01-22 12:40 | disposition home or self-care (01) ==
LOC: HO.HBS 11:28
PROVIDERS: Visit Provider Physician Assistant Surgical
DX: Z98.84 Bariatric surgery status (principal)
CPT/HCPCS: 99024

== ENCOUNTER 2024-03-03 10:48 | Outpatient (AMB) | payer OTHER, SELFPAY ==
--- NOTE | 2024-03-03 10:49 | A.OFFVIS_ITS ---
VS Expanded 03/03/24 10:58 BP 125/59 L Blood Pressure Location Rt brachial Blood Pressure Position Sitting Pulse 78 Pulse Source Pulse Oximeter Temp 98.0 F Temperature Source Temporal Artery Scan Pulse Oximetry 98 Oxygen Delivery Method Room Air Height 5 ft 7 in Weight 202 lb 6.4 oz BMI 31.7 Body Fat % 42.6 Body Fat Mass 86.2 Fat Free Mass 116.2 Visceral Fat Rating 11.0 Body Water % 40.6 Body Water Mass 82.2 Muscle Mass/Score 110.2 Basal Metabolic Rate/Score 1,607 Intake Visit Reasons: (OV) PO LSG 12/19/23 Data Science And Iot Manager Required: Yes Data Science And Iot Manager Services: Data Science And Iot Manager Present Data Science And Iot Manager Name: office cmi Allergies omeprazole [From Prilosec] Allergy (Mild, Verified 03/03/24 10:54) Rash HPI Comments Details: This?a?58?yo 0 who is s/p LSG without hiatal hernia repair on?12/19/23. Presents for 2 month post op visit. Weight today is 202.4 pounds, with a BMI of 31.7. There has been a 54.8 pound weight loss,(initial weight 257.2 pounds) since starting the program on 03/18/23 reflecting a 21.3% total body weight loss and a weight loss of 27 pounds since surgery (operative weight 229.4 pounds) reflecting a 11.7% TBWL since surgery. No complaints of nausea, emesis, abdominal pain or reflux. Reports infrequent but normal bowel movements every 2- 3 days and uses stool softeners regularly. She hurt her back about 2 weeks ago. She has been on Flexeril with some i mprovement. Her exercise has been limited because of this. She is not being followed by any spine specialists and would like a referral here. Yesterday she started stationary bike and she has additionally been doing some light walking. Wants to add in a yogurt Present meal plan includes: Celebrate 4 in 1, 2 scoops in 8 oz of almond milk, 8-10, 11-1, Premier protein 1/2 scoop, 2-4 ZP bar 5-8 ? Exercise routine includes: walking outside 1-2 hours, not tracking calories, daily stationary bike, 300-350 calories, 3-4 days per week [facility] Medical History Shortness of breath Heart palpitations Precordial chest pain Exertional chest pain Tachycardia Morbid obesity Migraines DJD (degenerative joint disease) Non-insulin dependent type 2 diabetes mellitus Panic disorder Left hip pain Left knee pain Depression KIAH on CPAP Hyperlipidemia HTN (hypertension) Surgical History Hx of laparoscopic partial gastrectomy History of ankle surgery Hx of tubal ligation Hx of BSO (bilateral salpingo-oophorectomy) H/O hysterectomy for benign disease Hx of carpal tunnel repair Family History Father Diabetes Mother Diabetes Alzheimer disease Son Hypertension Son No problems noted. Daughter No problems noted. Daughter Allergy Brother No problems noted. Brother No problems noted. Brother No problems noted. Brother No problems noted. Sister No problems noted. Sister No problems noted. Sister No problems noted. Sister No problems noted. Sister No problems noted. Sister No problems noted. Social History Household Members: None Housing: Apartment Are you a primary care transitions manager to a significant other at home: No Do you presently have visiting nurse or other home services: No Alcohol intake: former Comment: uses a cane at times Patient Tobacco Use Status: Never used Tobacco Physical Exam Vital Signs: Last Vital Signs Temp 98.0 F 03/03/24 10:58 Pulse 78 03/03/24 10:58 BP 125/59 L 03/03/24 10:58 Pulse Ox 98 03/03/24 10:58 Oxygen Delivery Method Room Air 03/03/24 10:58 BMI result Body Mass Index 31.7 Const General: healthy appearing and no acute distress Resp Effort & Inspection: normal respiratory effort Auscultation: clear to auscultation bilaterally Cardio Rate: regular rate Rhythm: regular rhythm GI Auscultation: normal bowel sounds Extrem General: Yes normal to inspection Assessment & Plan Assessment & Plan (1) S/P laparoscopic sleeve gastrectomy: Code(s): Z98.84 - Bariatric surgery status Category: Surgical Plan: Celebrate 4 in 1, 2 scoops in 8 oz of almond milk, 8-10, 11-1, occitan yogurt, 2-4 ZP bar 5-8 Try to increase tolerance with walking and stationary bike as she is able. (2) Back pain: Code(s): M54.9 - Dorsalgia, unspecified Category: Medical Plan: Continue Flexeril as ordered Refer to minimally invasive spine center here at the [facility], Dr. Raya. Orders: Referrals Neuro Spine Referral E66.9 - Obesity, unspecified, M54.9 - Dorsalgia, unspecified
[2024-03-03 10:58] VITALS: BP 125/59; PULSE 78; TEMP 36.7; O2SAT 98; BMI 31.7
== END 2024-03-03 11:30 | disposition home or self-care (01) ==
PROVIDERS: Visit Provider Physician Assistant Surgical
DX: Z98.84 Bariatric surgery status (principal); M54.9 Dorsalgia, unspecified
CPT/HCPCS: 99024

== ENCOUNTER → 2024-03-03 10:48 | Outpatient (BNVA) | payer OTHER, SELFPAY | PROVIDERS: Visit Provider Physician Assistant Surgical | DX: Z48.815 Encounter for surgical aftercare following surgery on the digestive system (principal); Z98.84 Bariatric surgery status; M54.9 Dorsalgia, unspecified | CPT/HCPCS: 99212 ==

== ENCOUNTER 2024-03-18 07:42 | Outpatient (REF) | payer OTHER, SELFPAY ==
--- NOTE | ~2024-03-18 | XR_ITS ---
EXAMINATION: XR CERVICAL SPINE CLINICAL INFORMATION: Cervicalgia. COMPARISON: None available. TECHNIQUE: AP, lateral (flexion, neutral, extension), both oblique, swimmers, Fuchs, and open mouth odontoid views of the cervical spine. FINDINGS: Vertebral alignment is normal without spondylolisthesis. There is developmental fusion of the C2-C3 bodies and posterior elements. Vertebral body heights are otherwise normal. No fractures are evident. Mild multilevel degenerative disc disease is noted from C3-C4 through C6-C7 with endplate and uncovertebral osteophytes, most notably at C3-C4 and C6-C7. Multilevel facet arthropathy is also most notable on the right at C3-C4 and C4-C5. There is limited assessment of the left neural foramina due to the angle of the oblique view. There is osseous neural foraminal encroachment on the right at C3-C4 and C4-C5 due to facet osteophytes and at C6-C7 due to uncovertebral osteophytes. There is calcification of the longus coli muscle near the anterior arch of C1 measuring at least 1 cm in diameter. Prevertebral soft tissues are otherwise normal. No appreciable pathologic motion with flexion-extension. XR/XR cervical spine w flex/ext IMPRESSION: 1. Mild multilevel degenerative disc disease and facet arthropathy in the cervical spine. 2. Osseous neural foraminal encroachment on the right at C3-C4, C4-C5, and C6-C7. 3. 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 4. Calcific tendinitis of the longus coli muscle. Electronically signed by: Justen Alas MD 03/31/2024 11:46 PM EDT
== END 2024-03-18 07:43 | disposition home or self-care (01) ==
LOC: HO.XRAY 07:42
PROVIDERS: Visit Provider Nurse Practitioner Family
DX: G43.909 Migraine, unspecified, not intractable, without status migrainosus (principal); G47.33 Obstructive sleep apnea (adult) (pediatric); M54.2 Cervicalgia; Z99.89 Dependence on other enabling machines and devices
CPT/HCPCS: 72052; 99212

== ENCOUNTER 2024-03-18 07:42 | Outpatient (AMB) | payer OTHER, SELFPAY ==
--- NOTE | 2024-03-18 07:53 | A.OFFVIS_ITS ---
Vital Signs 03/18/24 07:54 Height 5 ft 7 in Weight 204 lb BMI 31.9 BP 112/56 L Blood Pressure Location Rt brachial Position Sitting Intake Visit Reasons: 6 mo f/u Intake Note: Patient presents for 6 month follow up . had a headache for 3 days straight took medication and it help. Rental Salesperson Required: Yes Rental Salesperson Services: Rental Salesperson Present Rental Salesperson Name: ayden flores Allergies omeprazole [From Prilosec] Allergy (Mild, Verified 03/18/24 07:54) Rash Medication List - Last Reconciled 03/18/24 by KRISTYN De La O amitriptyline 30 mg (3 x 10 mg) PO BEDTIME 90 days blood sugar diagnostic (FreeStyle Lite Strips) As directed blood-glucose meter (FreeStyle Lite Meter kit) As directed cyclobenzaprine 10 mg PO BID PRN docusate sodium 100 mg PO DAILY dulaglutide (Trulicity) 0.75 mg subcut QWEEK duloxetine 40 mg PO DAILY gabapentin 600 mg PO TID hydrochlorothiazide 25 mg PO DAILY lancets (FreeStyle Lancets) As directed pantoprazole 40 mg PO DAILY@0630 ramipril 10 mg PO DAILY rizatriptan 10 mg PO Q2H PRN 30 days simvastatin 10 mg PO BEDTIME sucralfate 10 mL PO BID HPI Comments Details: 58-yr-old female presents for f/u visit. Pt is currently having cold s/s which are resolving. Pt had a gastric sleeve in December 2023. Before she was sick, she was having some headaches (3 x's per week) but it worsened when she was sick. Pt describes her headache, she sees black spots, then the headache starts in either left or right side asa throbbing pain from unilateral face (jaw and teeth through ipsilateral neck), poking/warm sensation in both or one eyes, a/w photophobia, phonophobia, osmophobia, nausea, ipsilateral but sometimes bilateral facial goosebumps/creepy crawling/strange sensation, fatigue, difficulty thinking, activity intolerance, room spinning dizziness. Denies facial weakness. The rizatriptan and leaving down for 2-3 hrs, may need to repeat a dose and lay back down. Takes Amitriptyline 30mg- does have some am tiredness and am dry mouth. She also has neck pain. She has bilateral neck swelling and stabbing, electrical, shocking/vibration/pins&needles pain runs up her head. This occurs daily. Triggered by sitting down and writing, laying down and moving her head sideways. The pain comes and goes throughout the day, and is very strong. This started many yrs ago. When this pain is worse, she will feel generalized body pins/needles/vibration/electrical sensation, her legs will give out. Takes Gabapentin 600mg tid- but was on hold s/p gatsric sleeve surgery- the neck pain was worse when off of it. Cyclobenzaprine- uses bid when needed. She is not sure when her last neck imaging was- states > 2 yrs ago, had spine injectiuons that caused hyperglycemia. She has not done PT recently for this. She is using her CPAP machine. [facility] Medical History Shortness of breath Heart palpitations Precordial chest pain Exertional chest pain Tachycardia Morbid obesity Migraines DJD (degenerative joint disease) Non-insulin dependent type 2 diabetes mellitus Panic disorder Left hip pain Left knee pain Depression KIAH on CPAP Hyperlipidemia HTN (hypertension) Surgical History Hx of laparoscopic partial gastrectomy History of ankle surgery Hx of tubal ligation Hx of BSO (bilateral salpingo-oophorectomy) H/O hysterectomy for benign disease Hx of carpal tunnel repair Family History Father Diabetes Mother Diabetes Alzheimer disease Son Hypertension Son No problems noted. Daughter No problems noted. Daughter Allergy Brother No problems noted. Brother No problems noted. Brother No problems noted. Brother No problems noted. Sister No problems noted. Sister No problems noted. Sister No problems noted. Sister No problems noted. Sister No problems noted. Sister No problems noted. Social History Household Members: None Housing: Apartment Are you a primary patient care manager to a significant other at home: No Do you presently have visiting nurse or other home services: No Alcohol intake: former Comment: uses a cane at times Patient Tobacco Use Status: Never used Tobacco Physical Exam Vital Signs: Last Vital Signs BP 112/56 L 03/18/24 07:54 BMI result Body Mass Index 31.9 Const General: cooperative and no acute distress Orientation/consciousness: patient oriented x3 Resp Effort & Inspection: normal respiratory effort and able to speak in complete sentences Neuro Other: No palpable scalp tenderness. Bilateral marked posterior cervical tightness. Cervical ROM: limited in all [place] Left Spurling: elicits non-radiating neck pain Right Spurling: normal. General: patient oriented x3 Cranial nerves: Yes CN's II-XII intact bilaterally Cognition (Neuro): normal cognition Gait exam (Neuro): Antalgic gait present Motor exam (neuro): 5/5 motor strength present throughout Deep tendon reflexes (DTR's): Right triceps reflex intensity grade: 1+, Left triceps reflex intensity grade: 1+, Rt Biceps (C5, C6): 1+, Left biceps reflex intensity grade: 1+, Right brachioradialis reflex intensity grade: 1+, Left brachioradialis reflex intensity grade: 1+, Right patellar reflex intensity grade: 2+ and Left patellar reflex intensity grade: 2+ Psych Appearance: grossly normal Mental Status: mental status grossly normal Speech and movement: Normal speech and movement present Affect: normal affect Attitude: cooperative Assessment & Plan Assessment & Plan (1) Migraines: Code(s): G43.909 - Migraine, unspecified, not intractable, without status migrainosus Category: Medical (2) Cervicalgia of venxnygh-irjchbe-rrdrl region: Code(s): M54.2 - Cervicalgia Category: Medical (3) KIAH on CPAP: Code(s): G47.33 - Obstructive sleep apnea (adult) (pediatric); Z99.89 - Dependence on other enabling machines and devices Category: Medical Plan For cervicalgia, w/ ? ON componenet: XR-c-spine PT eval & tx Continue Gabapentin 600mg tid Continue Cyclobenzaprine 10mg bid prn. Future considerations- ON block, MRI, EMG/NCS For KIAH: Continue APAP at 5-20 cmH2O nightly, more than 4 hours as pt has experienced good clinical effect from use For acute headache treatment: It is important to take as needed acute medications at the first sign of headache, however you want to avoid taking most as needed headache too often as this can lead to medication overuse/adaptation headaches. Rizatriptan 10mg tab, 1/2 - 1 tab (5-10mg) at onset of headache, may repeat in 2 hours. Max of 2 tabs (200mg) per 24 hours. May adjunct with OTC Tylenol 650- 1000mg every 4-6 hours. Previous acute migraine medication trials: unsure Acute migraine medication contraindications: NSAIDs d/t gastric sleeve surgery For headache prevention medication: Preventative medications should be taken routinely as prescribed for best effect, it may take several weeks to see full effect. Riboflavin 400mg qam Magnesium 400mg qhs Continue Amitriptyline 30mg qhs- would not increase further d/t already has dry mouth. Trial Propranolol 10mg bid- monitor for liughtheadedness, worsening fatigue, low BP/HR. Previous migraine prevention medication trials: Migraine prevention medication contraindications: None known at this time Future considerations- CGRP MaB. Follow-up in 4-6 months or sooner prn. Orders: Orders XR cervical spine w flex/ext 03/18/24 M54.2 - Cervicalgia PT Evaluation and Treatment 03/18/24 M54.2 - Cervicalgia Medications: New propranolol 10 mg PO BID 60 tabs 3RF 30 days G43.909 - Migraine, unspecified, not intractable, without status migrainosus acetaminophen (Tylenol Extra Strength) Do not use more than 3 days per week. 1,000 mg (2 x 500 mg) PO Q6H PRN 120 tabs 2RF migraine headache 30 days riboflavin (vitamin B2) 400 mg PO DAILY 30 tabs 6RF 30 days magnesium oxide may hold for loose stools 400 mg PO BEDTIME 30 tabs 6RF 30 days Changed From rizatriptan 1 tab at onset of migraine, may repeat in 2 hours. Do not exceed 2 tabs/day. 4 tabs/week. 10 mg PO Q2H 30 days PRN 12 tabs 1RF migraine headache To rizatriptan 1 tab at onset of migraine, may repeat in 2 hours. Do not exceed 2 tabs/day. 6 tabs/week. May take w/ Tylenol. 10 mg PO Q2H PRN 14 tabs 6RF migraine headache 30 days Coding Level of Care Code Est Pt Level 4 (48155) Diagnoses Migraines G43.909 Cervicalgia of oiwzgymk-rwmhcet-fzftj region M54.2 KIAH on CPAP G47.33; Z99.89
[2024-03-18 07:54] VITALS: BP 112/56; BMI 31.9
== END 2024-03-18 08:44 | disposition home or self-care (01) ==
PROVIDERS: Visit Provider Nurse Practitioner Family
DX: G43.909 Migraine, unspecified, not intractable, without status migrainosus (principal); M54.2 Cervicalgia; G47.33 Obstructive sleep apnea (adult) (pediatric); Z99.89 Dependence on other enabling machines and devices
CPT/HCPCS: 99214

== ENCOUNTER 2024-03-25 11:21 | Outpatient (AMB) | payer OTHER, SELFPAY ==
--- NOTE | 2024-03-25 11:49 | MHC.OFFVISWM ---
VS Expanded 03/25/24 11:57 BP 127/62 Blood Pressure Location Rt brachial Blood Pressure Position Sitting Pulse 71 Pulse Source Pulse Oximeter Temp 96.9 F Temperature Source Temporal Artery Scan Pulse Oximetry 98 Oxygen Delivery Method Room Air Height 5 ft 7 in Weight 196 lb 6.4 oz BMI 30.8 Body Fat % 42.2 Body Fat Mass 82.8 Fat Free Mass 113.4 Visceral Fat Rating 11.0 Body Water % 40.9 Body Water Mass 80.2 Muscle Mass/Score 107.6 Basal Metabolic Rate/Score 1,566 Intake Visit Reasons: (OV) PO LSG 12/19/23 Environmental Management Specialist Required: Yes Environmental Management Specialist Services: Environmental Management Specialist Present Environmental Management Specialist Name: hospital cmi Allergies omeprazole [From Prilosec] Allergy (Mild, Verified 03/25/24 11:57) Rash Medication List - Last Reconciled 03/25/24 by BRAULIO Wong acetaminophen (Tylenol Extra Strength) 1,000 mg (2 x 500 mg) PO Q6H PRN 30 days amitriptyline 30 mg (3 x 10 mg) PO BEDTIME 90 days blood sugar diagnostic (FreeStyle Lite Strips) As directed blood-glucose meter (FreeStyle Lite Meter kit) As directed cyclobenzaprine 10 mg PO BID PRN docusate sodium 100 mg PO DAILY duloxetine 40 mg PO DAILY gabapentin 600 mg PO TID hydrochlorothiazide 25 mg PO DAILY lancets (FreeStyle Lancets) As directed magnesium oxide 400 mg PO BEDTIME 30 days pantoprazole 40 mg PO DAILY@0630 propranolol 10 mg PO BID 30 days riboflavin (vitamin B2) 400 mg PO DAILY 30 days rizatriptan 10 mg PO Q2H PRN 30 days simvastatin 10 mg PO BEDTIME HPI Comments Details: This?a?58?yo 0 who is s/p LSG without hiatal hernia repair on?12/19/23. Presents for 3 month post op visit. Weight today is 196.4 pounds, with a BMI of 30.8. There has been a 60.8 pound weight loss,(initial weight 257.2 pounds) since starting the program on 03/18/23 reflecting a 23.6% total body weight loss and a weight loss of 32.6pounds since surgery (operative weight 229.4 pounds) reflecting a 14.2% TBWL since surgery. No complaints of nausea, emesis, abdominal pain or reflux. Reports infrequent but normal bowel movements every 2-3 days and uses stool softeners regularly. She hurt her back several weeks ago. She used antispasmodics with improvement and now states that it is back to normal. Would like to get rid of the bar Present meal plan includes: Celebrate 4 in 1, 2 scoops in 8 oz of almond milk, 8-10, 11-1, greenlandic yogurt, 2-4 ZP bar 5-8 drinking 48-64 oz water ? Exercise routine includes: walking outside 1-2 hours, not tracking calories, daily stationary bike, 300-350 calories, 4-5 days per week [facility] Medical History Shortness of breath Heart palpitations Precordial chest pain Exertional chest pain Tachycardia Morbid obesity Migraines DJD (degenerative joint disease) Non-insulin dependent type 2 diabetes mellitus Panic disorder Left hip pain Left knee pain Depression KIAH on CPAP Hyperlipidemia HTN (hypertension) Surgical History Hx of laparoscopic partial gastrectomy History of ankle surgery Hx of tubal ligation Hx of BSO (bilateral salpingo-oophorectomy) H/O hysterectomy for benign disease Hx of carpal tunnel repair Family History Father Diabetes Mother Diabetes Alzheimer disease Son Hypertension Son No problems noted. Daughter No problems noted. Daughter Allergy Brother No problems noted. Brother No problems noted. Brother No problems noted. Brother No problems noted. Sister No problems noted. Sister No problems noted. Sister No problems noted. Sister No problems noted. Sister No problems noted. Sister No problems noted. Social History Household Members: None Housing: Apartment Are you a primary senior care provider to a significant other at home: No Do you presently have visiting nurse or other home services: No Alcohol intake: former Comment: uses a cane at times Patient Tobacco Use Status: Never used Tobacco Physical Exam Vital Signs: Last Vital Signs Temp 96.9 F 03/25/24 11:57 Pulse 71 03/25/24 11:57 BP 127/62 03/25/24 11:57 Pulse Ox 98 03/25/24 11:57 Oxygen Delivery Method Room Air 03/25/24 11:57 BMI result Body Mass Index 30.8 Const General: healthy appearing and no acute distress Resp Effort & Inspection: normal respiratory effort Auscultation: clear to auscultation bilaterally Cardio Rate: regular rate Rhythm: regular rhythm GI Auscultation: normal bowel sounds Extrem General: Yes normal to inspection Assessment & Plan Assessment & Plan (1) S/P laparoscopic sleeve gastrectomy: Code(s): Z98.84 - Bariatric surgery status Category: Medical Plan: Patient is doing fairly well. Slow but consistent in her weight loss. We will change meal plan per request to add food and remove her bar. Celebrate 4 in 1, 2 scoops in 8 oz of almond milk, 8-10, 11-1, Fresh fruit or Nepali yogurt, 2-4 Meal with 4 forks protein and 4 forks vegetables 5-8 Discussed the importance of consistently exercising. She is doing the best that she can. She did have back pain previously. Discussed tracking her calories with the [employer] jeancarlos. return to clinic 1 month.
[2024-03-25 11:57] VITALS: BP 127/62; PULSE 71; TEMP 36.1; O2SAT 98; BMI 30.8
== END 2024-03-25 12:27 | disposition home or self-care (01) ==
PROVIDERS: Visit Provider Physician Assistant Surgical
DX: E66.09 Other obesity due to excess calories (principal); Z68.30 Body mass index [BMI] 30.0-30.9, adult; Z90.3 Acquired absence of stomach [part of]; Z98.84 Bariatric surgery status
CPT/HCPCS: 99213

== ENCOUNTER → 2024-03-25 11:21 | Outpatient (BNVA) | payer OTHER, SELFPAY | PROVIDERS: Visit Provider Physician Assistant Surgical | DX: E66.09 Other obesity due to excess calories (principal); Z68.30 Body mass index [BMI] 30.0-30.9, adult; Z90.3 Acquired absence of stomach [part of] | CPT/HCPCS: 99212 ==

== ENCOUNTER 2024-07-27 10:41 | Outpatient (REF) | payer OTHER, SELFPAY ==
[2024-07-27 12:09] LABS: MANUAL DIFF FLAG NO
[2024-07-27 12:26] LABS: Basophils Absolute Auto 0.1 X10*3/uL (0.0-0.2); Basophils Percent Auto 0.9 % (0-2); Eosinophils Absolute Auto 0.1 X10*3/uL (0.0-0.4); Eosinophils Percent Auto 1.6 % (0-4); Hematocrit 44.3 % (37.0-47.0); Hemoglobin 14.5 g/dl (12.0-16.0); Imm Gran Abs Auto 0.02 X10*3/uL (0.00-0.03); Imm Gran Pct Auto 0.3 % (0.0-0.4); Lymphocytes Percent Auto 29.6 % (20-40); Mean Corpuscular HGB Conc 32.7 g/dl (31.0-35.0); Mean Corpuscular Hemoglobin 28.9 pg (27.0-33.0); Mean Corpuscular Volume 88.2 fL (80.0-98.0); Mean Platelet Volume 9.8 fL (9.4-12.3); Monocytes Absolute Auto 0.5 X10*3/uL (0.1-1.2); Monocytes Percent Auto 6.7 % (2-11); Neutrophils Absolute Auto 4.1 x10*3/uL (2.0-8.3); Neutrophils Percent Auto 60.9 % (45-73); Platelet Count 294 X10*3/uL (160-400); Red Blood Count 5.02 X10*6/uL (4.20-5.50); Red Cell Distribution Width 13.2 % (11.0-16.0); White Blood Count 6.8 X10*3/uL (4.8-10.8)
[2024-07-27 12:33] LABS: Estimated Average Glucose 103 mg/dL; Hemoglobin A1C 125.2848 umol/L; Hemoglobin A1c % 5.2 % (<6.0); Total Hemoglobin (HGBA1C) 3734.2338 umol/L
[2024-07-27 13:02] LABS: Alanine Aminotransferase 15 U/L (0-31); Alkaline Phosphatase 92 U/L (39-117); Anion Gap 12 (12-20); Aspartate Amino Transferase 26 U/L (5-31); Bilirubin Total 0.5 mg/dL (0.0-1.0); Blood Urea Nitrogen 10 mg/dL (9-16); C Reactive Protein 0.14 mg/dL (< or = 0.50); Carbon Dioxide 30 mmol/L (22-29); Chloride 106 mmol/L (96-108); Cholesterol 205 mg/dL (<200); Estimated Glomerular Filt Rate > 60; Glucose Random 86 mg/dL (60-115); HDL Cholesterol 56 mg/dL (>40); Iron 74 mcg/dL (30-160); LDL Cholesterol Calculated 132 mg/dL (<100); Percent Iron Saturation 33 % (15-50); Sodium 144 mmol/L (135-145); Total Iron Binding Capacity 226 mcg/dL (228-428); Total Protein 7.7 g/dL (6.5-8.0); Triglycerides 86 mg/dL (<150); Unsaturated Iron Binding 152 ug/dL
[2024-07-27 13:17] LABS: Ferritin 196 ng/mL (10-250); Insulin 3 uU/mL (2-29); TSH reflex Free T4 0.59 uIU/mL (0.32-4.0); Vitamin D 25-OH Total 33.7 ng/mL (>30)
[2024-07-27 13:23] LABS: Folate 10.4 ng/mL (> or = 4.0); Vitamin B12 782 pg/mL (200-900)
[2024-07-29 20:08] LABS: Zinc 67 mcg/dL (60-130)
[2024-07-29 20:57] LABS: Vitamin A 30 mcg/dL (38-98)
[2024-08-01 15:48] LABS: Vitamin B1 12 nmol/L (8-30)
== END 2024-07-27 10:42 | disposition home or self-care (01) ==
LOC: HO.LAB 10:41
PROVIDERS: Visit Provider Physician Assistant Surgical
DX: M54.9 Dorsalgia, unspecified (principal); E66.9 Obesity, unspecified; Z98.84 Bariatric surgery status; K76.0 Fatty (change of) liver, not elsewhere classified; E11.9 Type 2 diabetes mellitus without complications; I10 Essential (primary) hypertension; E78.5 Hyperlipidemia, unspecified
CPT/HCPCS: 36415; 80053; 80061; 82306; 82607; 82728; 82746; 83036; 83525; 83540; 84425; 84443; 84590; 84630; 85025; 86140; 99212

== ENCOUNTER 2024-07-27 10:41 | Outpatient (AMB) | payer OTHER, SELFPAY ==
--- NOTE | 2024-07-27 10:45 | A.OFFVIS_ITS ---
VS Expanded 07/27/24 10:50 BP 125/60 Blood Pressure Location Rt brachial Blood Pressure Position Sitting Pulse 74 Pulse Source Pulse Oximeter Temp 96.6 F L Temperature Source Temporal Artery Scan Pulse Oximetry 100 Oxygen Delivery Method Room Air Height 5 ft 7 in Weight 180 lb 12.8 oz BMI 28.3 Body Fat % 37.8 Body Fat Mass 68.4 Fat Free Mass 112.4 Visceral Fat Rating 9.0 Body Water % 44.0 Body Water Mass 79.6 Muscle Mass/Score 106.8 Basal Metabolic Rate/Score 1,530 Intake Visit Reasons: (OV) PO LSG 12/19/23 Biomedical Engineering Technologist Required: Yes Biomedical Engineering Technologist Services: Biomedical Engineering Technologist Present Biomedical Engineering Technologist Name: hospital cmi Allergies omeprazole [From Prilosec] Allergy (Mild, Verified 07/27/24 10:48) Rash Medication List - Last Reconciled 07/27/24 by BRAULIO Wong acetaminophen (Tylenol Extra Strength) 1,000 mg (2 x 500 mg) PO Q6H PRN 30 days amitriptyline 30 mg (3 x 10 mg) PO BEDTIME blood sugar diagnostic (FreeStyle Lite Strips) As directed blood-glucose meter (FreeStyle Lite Meter kit) As directed cyclobenzaprine 10 mg PO BID PRN docusate sodium 100 mg PO DAILY duloxetine 40 mg PO DAILY gabapentin 600 mg PO TID hydrochlorothiazide 25 mg PO DAILY lancets (FreeStyle Lancets) As directed magnesium oxide 400 mg PO BEDTIME 30 days pantoprazole 40 mg PO DAILY@0630 propranolol 10 mg PO BID 30 days riboflavin (vitamin B2) 400 mg PO DAILY 30 days rizatriptan 10 mg PO Q2H PRN 30 days simvastatin 10 mg PO BEDTIME HPI Comments Details: This?a?58?yo 0 who is s/p LSG without hiatal hernia repair on?12/19/23. Presents for 7 month post op visit. Weight today is 180.8 pounds, with a BMI of 28.3. There has been a 76.4 pound weight loss,(initial weight 257.2 pounds) since starting the program on 03/18/23 reflecting a 29.7% total body weight loss and a weight loss of 48.6 pounds since surgery (operative weight 229.4 pounds) reflecting a 21.8% TBWL since surgery. Reports infrequent but normal bowel movements every 2-3 days and uses stool softeners regularly. She states she had had problems with chicken as feels it gets stuck. She can tolerate fish, shrimp, yogurt, vegetables. Reports having her shake over 20 minutes and having fluids with her meals. She states she wants to change to [employer] shakes Present meal plan includes: Celebrate 4 in 1, 2 scoops in 8 oz of almond milk, 8-10, 11-1, Fresh fruit or [place]i yogurt, 2-4 Meal with 4 forks protein and 4 forks vegetables 5-8 drinking 48-64 oz water ? Exercise routine includes: elliptical at home stationary bike, 300-350 calories, 4-5 days per week Any post op complications: None KIAH: improved DM: resolved HTN: improved Hyperlipidemia: improved [facility] Medical History Shortness of breath Heart palpitations Precordial chest pain Exertional chest pain Tachycardia Morbid obesity Migraines DJD (degenerative joint disease) Non-insulin dependent type 2 diabetes mellitus Panic disorder Left hip pain Left knee pain Depression KIAH on CPAP Hyperlipidemia HTN (hypertension) Surgical History Hx of laparoscopic partial gastrectomy History of ankle surgery Hx of tubal ligation Hx of BSO (bilateral salpingo-oophorectomy) H/O hysterectomy for benign disease Hx of carpal tunnel repair Family History Father Diabetes Mother Diabetes Alzheimer disease Son Hypertension Son No problems noted. Daughter No problems noted. Daughter Allergy Brother No problems noted. Brother No problems noted. Brother No problems noted. Brother No problems noted. Sister No problems noted. Sister No problems noted. Sister No problems noted. Sister No problems noted. Sister No problems noted. Sister No problems noted. Social History Household Members: None Housing: Apartment Are you a primary group care worker to a significant other at home: No Do you presently have visiting nurse or other home services: No Alcohol intake: former Comment: uses a cane at times Patient Tobacco Use Status: Never used Tobacco Physical Exam Const General: cooperative and no acute distress Orientation/consciousness: patient oriented x3 Resp Effort & Inspection: normal respiratory effort Auscultation: clear to auscultation bilaterally Cardio Rate: regular rate Rhythm: regular rhythm GI Inspection: Yes normal to inspection and Yes incision (well healed) Palpation (GI): Soft to palpation and no masses Neuro General: patient oriented x3 Assessment & Plan Assessment & Plan (1) S/P laparoscopic sleeve gastrectomy: Code(s): Z98.84 - Bariatric surgery status Category: Surgical Plan: Check six-month postop labs. Encouraged to slow down her eating and drinking. Encouraged to avoid fluids with solids during her meals as much as possible. Encouraged to return using her stationary bike and elliptical at home with a goal of burning 400 calories per session. She states she is going to try Orgain shake product and will text me with her wishes if she wants to change her meal plan. Continue current plan. Follow-up in the office in 1 month.
[2024-07-27 10:50] VITALS: BP 125/60; PULSE 74; TEMP 35.9; O2SAT 100; BMI 28.3
== END 2024-07-27 11:27 | disposition home or self-care (01) ==
PROVIDERS: Visit Provider Physician Assistant Surgical
DX: E66.3 Overweight (principal); Z68.28 Body mass index [BMI] 28.0-28.9, adult; Z90.3 Acquired absence of stomach [part of]; Z98.84 Bariatric surgery status
CPT/HCPCS: 99213

== ENCOUNTER 2024-09-28 13:06 | Outpatient (AMB) | payer OTHER, SELFPAY ==
[2024-09-28 13:34] VITALS: BP 120/72; PULSE 71; O2SAT 98; BMI 28.7
--- NOTE | 2024-09-28 13:34 | A.OFFVIS_ITS ---
Vital Signs 09/28/24 13:34 Height 5 ft 7 in Weight 183 lb BMI 28.7 BP 120/72 Blood Pressure Location Rt brachial Position Sitting Pulse 71 Pulse Source Pulse Oximeter Pulse Oximetry (%) 98 Oxygen Delivery Method Room Air Intake Visit Reasons: Follow Up Intake Note: Patient presents follow up Migraine/KIAH medication. X-ray in chart. requested PT notes from [facility]. 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 She continues to have 3 migraine attacks/days per week. Baseline migraine characteristics: she sees black spots, then the headache starts in either left or right side asa throbbing pain from unilateral face (jaw and teeth through ipsilateral neck), poking/warm sensation in both or one eyes, a/w photophobia, phonophobia, osmophobia, nausea, ipsilateral but sometimes bilateral facial goosebumps/creepy crawling/strange sensation, fatigue, difficulty thinking, activity intolerance, room spinning dizziness. Denies facial weakness. She did try propranolol 10 mg twice a day, however it was not very effective and blood pressure remains normotensive. The rizatriptan and leaving down for 2-3 hrs, may need to repeat a dose and lay back down. States rizatriptan is very effective, however recently has been causing some mild palpitations for a few minutes after taking it, however she does not wanted change it at this point. She does not recall previously trying sumatriptan. Takes Amitriptyline 30mg- does have some am tiredness and am dry mouth. She continues to have neck and back pain, states her low back is more bothersome. She is using cyclobenzaprine with some effect, She states she was unable to start physical therapy at [facility], as a said she missed her appointment though she did not know that. XR/XR cervical spine w flex/ext IMPRESSION: 1. Mild multilevel degenerative disc disease and facet arthropathy in the cervical spine. 2. Osseous neural foraminal encroachment on the right at C3-C4, C4-C5, and C6- C7. 3. 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 4. Calcific tendinitis of the longus coli muscle. She is using her CPAP machine most nights, and only misses it when her low back pain is more bothersome. Overall she feels good benefit from CPAP use CPAP compliance report reviewed between 06/24/2024 and 09/21/2024 - Overall usage at 80%; over 4 hours usage at 72%. - Average use on days utilized: 6 hours and 13 minutes. - CPAP settings: APAP 5-20 cm H2O, EPR set to 2. - Maximum pressure: 10.7 cm H2O. - Median leaks: 5.2 L/min. - Residual AHI: 3.6 per hour. [facility] Medical History Shortness of breath Heart palpitations Precordial chest pain Exertional chest pain Tachycardia Morbid obesity Migraines DJD (degenerative joint disease) Non-insulin dependent type 2 diabetes mellitus Panic disorder Left hip pain Left knee pain Depression KIAH on CPAP Hyperlipidemia HTN (hypertension) Surgical History Hx of laparoscopic partial gastrectomy History of ankle surgery Hx of tubal ligation Hx of BSO (bilateral salpingo-oophorectomy) H/O hysterectomy for benign disease Hx of carpal tunnel repair Family History Father Diabetes Mother Diabetes Alzheimer disease Son Hypertension Son No problems noted. Daughter No problems noted. Daughter Allergy Brother No problems noted. Brother No problems noted. Brother No problems noted. Brother No problems noted. Sister No problems noted. Sister No problems noted. Sister No problems noted. Sister No problems noted. Sister No problems noted. Sister No problems noted. Social History Household Members: None Housing: Apartment Are you a primary resident caregiver to a significant other at home: No Do you presently have visiting nurse or other home services: No Alcohol intake: former Comment: uses a cane at times Patient Tobacco Use Status: Never used Tobacco Physical Exam Vital Signs: Last Vital Signs Pulse 71 09/28/24 13:34 BP 120/72 09/28/24 13:34 Pulse Ox 98 09/28/24 13:34 Oxygen Delivery Method Room Air 09/28/24 13:34 BMI result Body Mass Index 28.7 Const General: cooperative and no acute distress Orientation/consciousness: patient oriented x3 Resp Effort & Inspection: normal respiratory effort and able to speak in complete sentences Neuro General: patient oriented x3 Cranial nerves: Yes CN's II-XII intact bilaterally Cognition (Neuro): normal cognition Gait exam (Neuro): Antalgic gait present Motor exam (neuro): 5/5 motor strength present throughout Psych Appearance: grossly normal Mental Status: mental status grossly normal Speech and movement: Normal speech and movement present Affect: normal affect Attitude: cooperative Assessment & Plan Assessment & Plan (1) Migraines: Code(s): G43.909 - Migraine, unspecified, not intractable, without status migrainosus Category: Medical (2) Back pain: Code(s): M54.9 - Dorsalgia, unspecified Category: Medical (3) Cervicalgia of rpnhxlig-krqpqke-ozfrx region: Code(s): M54.2 - Cervicalgia Category: Medical (4) KIAH on CPAP: Code(s): G47.33 - Obstructive sleep apnea (adult) (pediatric); Z99.89 - Dependence on other enabling machines and devices Category: Medical Plan For cervicalgia, w/ ? ON component: XR-c-spine mild multilevel degenerative disc disease and facet arthropathy in the cervical spine We will re-initiate referral for PT eval & tx- for back pain as well Continue Gabapentin 600mg tid Continue Cyclobenzaprine 10mg bid prn. Future considerations- ON block, MRI, EMG/NCS For KIAH: Continue APAP at 5-20 cmH2O nightly, more than 4 hours as pt has experienced good clinical effect from use For acute headache treatment: It is important to take as needed acute medications at the first sign of headache, however you want to avoid taking most as needed headache too often as this can lead to medication overuse/adaptation headaches. Rizatriptan 10mg tab, 1/2 - 1 tab (5-10mg) at onset of headache, may repeat in 2 hours. Max of 2 tabs (200mg) per 24 hours. May adjunct with OTC Tylenol 650- 1000mg every 4-6 hours. Previous acute migraine medication trials: unsure Acute migraine medication contraindications: NSAIDs d/t gastric sleeve surgery For headache prevention medication: Preventative medications should be taken routinely as prescribed for best effect, it may take several weeks to see full effect. Riboflavin 400mg qam Magnesium 400mg qhs Continue Amitriptyline 30mg qhs- would not increase further d/t already has dry mouth. Discontinue Propranolol 10mg bid- ineffective and can not increase further due to low normotensive BP Start Emgality 120mg/ml auto-injection: Loading dose: 240mg (2 120mg/ml auto-injections) via subcutaneous injection in 2 different sites). Then 30 days after loading dose, start Maintenance dose: 120mg (120mg/ml autoinjector) subcutaneous injection every month. If Emgality is approved, patient is aware how to administer this type of autoinjector. However if we need to consider an alternate CGRP mab- then patient request RN injection education Important considerations: * Emgality will likely require insurance prior authorization prior to receiving it from the pharmacy. * Potential side effects include allergic reaction and injection site reactions. * Emgality injection training educational video is available to view on [employer] * Store Emgality in the refrigerator in it's original packaging in order to protect from light. * Remove Emgality at least 1 hour prior to taking the injection. * Emgality can be left out of the fridge for?up to 7 days at a temperature not above 86?F. If either of these conditions are exceeded, then Emgality must be thrown away. * Once Emgality has been stored out of refrigeration, do not place it back in the refrigerator. Previous migraine prevention medication trials: Migraine prevention medication contraindications: None known at this time Follow-up in 6 months or sooner prn. Orders: Orders PT Evaluation and Treatment Today M54.9 - Dorsalgia, unspecified Medications: New galcanezumab-gnlm (Emgality Pen) Loading dose: 120 mg subcu injection x2 in alternate sites (total 240 mg). To be followed by maintenance dose of 120 mg subcu q.month. 240 mg (2 mL) subcut ONCE 30 days 2 mL 0RF Refilled rizatriptan 1 tab at onset of migraine, may repeat in 2 hours. Do not exceed 2 tabs/day. 6 tabs/week. May take w/ Tylenol. 10 mg PO Q2H 30 days PRN 14 tabs 6RF migraine headache magnesium oxide may hold for loose stools 400 mg PO BEDTIME 30 days 30 tabs 6RF amitriptyline 30 mg (3 x 10 mg) PO BEDTIME 270 tabs 1RF riboflavin (vitamin B2) 400 mg PO DAILY 30 days 30 tabs 6RF Discontinued propranolol Discontinued Reason: Doctor's Order 10 mg PO BID 30 days 60 tabs 3RF G43.909 - Migraine, unspecified, not intractable, without status migrainosus Coding Level of Care Code Est Pt Level 4 (57266) Diagnoses Migraines G43.909 Back pain M54.9 Cervicalgia of rloxmrfe-nxruxzu-chyjk region M54.2 KIAH on CPAP G47.33; Z99.89
== END 2024-09-28 14:28 | disposition home or self-care (01) ==
LOC: HO.HSMS 13:07
PROVIDERS: Visit Provider Nurse Practitioner Family
DX: G43.909 Migraine, unspecified, not intractable, without status migrainosus (principal); M54.9 Dorsalgia, unspecified; M54.2 Cervicalgia; G47.33 Obstructive sleep apnea (adult) (pediatric); Z99.89 Dependence on other enabling machines and devices
CPT/HCPCS: 99214

== ENCOUNTER → 2024-09-28 13:06 | Outpatient (BNVA) | payer OTHER, SELFPAY | PROVIDERS: Visit Provider Nurse Practitioner Family | DX: G47.33 Obstructive sleep apnea (adult) (pediatric) (principal); G43.909 Migraine, unspecified, not intractable, without status migrainosus; M54.2 Cervicalgia; Z99.89 Dependence on other enabling machines and devices | CPT/HCPCS: 99212 ==